=== PATIENT | male | born 1940 | race Caucasian/White ===

== ENCOUNTER → 2018-02-03 13:15 | Outpatient (CLI) | payer MEDICARE, BC, SELFPAY ==
--- NOTE | 2018-02-03 13:23 | CT_ITS ---
STUDY: LOW DOSE CT LUNG CANCER SCREENING REASON FOR EXAM: Male, 77 years old. Tobacco use. Smokes 1 pack per day for 62 years. COPD. Diabetes. RADIATION DOSAGE (If Supplied By Facility): CTDIvol = ( 2.01 ) mGy, DLP = ( 67.71 ) mGycm TECHNIQUE: No contrast was administered. Low dose technique was utilized (average mAS-38 and kVp 120). 1.25 mm axial source images with a slice interval of 1.25-mm were reconstructed in lung windows. Nodule measured using lung windows on PACS and/or independent workstation with automated measurement of minimum and maximum diameter. Nodule measurement reported as average diameter rounded to the nearest whole number. Growth is defined as an increase ins size of greater than 1.5 mm. COMPARISON: None. NODULES: Total lung nodules (excluding granulomas): Left upper lobe series 2 image 55 posterior lateral pleural margin 3 mm solid pulmonary nodule. Nonspecific. Emphysema: Moderate centrilobular emphysema. There are multiple tiny calcified pulmonary nodules consistent with old granulomatous disease. Endobronchial lesion: None. Aorta: Nondilated aorta, mild to moderate atherosclerotic calcification of the wall. Coronary arteries: The right and left coronary arteries each emerge from the appropriate coronary sinus, prominent three-vessel coronary calcifications. Heart: Normal cardiac size, no effusion. Pulmonary artery: Nondilated. Mediastinal nodes: A few small lymph nodes of the mediastinum. The largest is pretracheal with short axis VII.5 mm, not pathologically enlarged. There is no apparent hilar lymphadenopathy. Other chest and abdominal findings: Body wall soft tissues, upper abdomen, and osseous structures exhibit no acute process. Mild scoliosis and mild thoracic spondylosis. CT/Chest without Contrast IMPRESSION: 1. Prominent features of centrilobular emphysema. 2. Three-vessel coronary atherosclerosis. 3. Scattered punctate calcified pulmonary nodules consistent with old granulomatous disease. 4. 3 mm pulmonary nodule left upper lobe, solid, oval, circumscribed margins. ACR lung RADS category 2, benign appearance, less than 1% chance of malignancy. Continued annual screening CT recommended. Fleischner Society Criteria 2017, solitary solid less than 6 mm pulmonary nodule in a high-risk patient, optional CT in 12 months. Therefore, annual screening CT examination is recommended in 12 months. IMPORTANT NOTES FOR USE: ACR Lung-RADS Version 1.0 Assessment Categories Release Date: January 10, 2014 Category: Coded 0-4 bases on nodule(s) with highest degree of suspicion. Negative screen is defined as categories 1 and 2; a positive screen is defined as categories 3 and 4. Category 3 and 4A nodules that are unchanged on interval CT should be coded as category 2, and individuals returned to screening in 12 months. Category 4X: Category 3 or 4 nodules with additional imaging findings that increase the suspicion of lung cancer, such as spiculation, GGN that doubles in size in 1 year, enlarged lymph notes, etc. Category Modifiers: S (significant finding unrelated to lung cancer) and C (prior history of treated lung cancer) may be added to the 0-4 Lung-RADS Electronically Signed: Curry Winkler, at 15:46 EDT Tel , Service support ,
== END ==
PROVIDERS: Family Provider Family Medicine; PCP Family Medicine; Visit Provider Internal Medicine Pulmonary Disease
DX: Z87.891 Personal history of nicotine dependence (principal)
CPT/HCPCS: 71250

== ENCOUNTER → 2018-08-10 13:01 | Outpatient (CLI) | payer MEDICARE, BC, SELFPAY ==
--- NOTE | 2018-08-10 13:04 | CT_ITS ---
STUDY: CT CHEST WITHOUT CONTRAST REASON FOR EXAM: Male, 77 years old. Follow-up of lung nodule RADIATION DOSAGE (If Supplied By Facility): CTDIvol = ( 14.68 ) mGy, DLP = ( 485.47 ) mGycm TECHNIQUE: Transaxial imaging was performed without the administration of intravenous contrast material. Individualized dose optimization techniques were used for this CT. COMPARISON: 02/03/2018 FINDINGS: There is hyperinflation of the lungs consistent with chronic obstructive lung disease (COPD). Mild emphysematous changes noted throughout. No acute airspace disease. No evidence of pulmonary nodule. Normal heart and pericardium. There are calcifications of the coronary arteries. Normal mediastinum. Normal hilar regions. Normal unenhanced pulmonary arteries. There is atherosclerotic calcification of the aortic arch with tortuosity and elongation of the aortic arch and descending thoracic aorta. There are multi-level degenerative changes of the thoracic spine. There is no demonstrated abnormality of the visualized upper abdomen. CT/Chest without Contrast IMPRESSION: COPD and emphysema. No evidence of concerning pulmonary nodule. Recommend annual CT lung cancer screening if patient qualifies. Electronically Signed: Lm Nieto DO at 13:53 EST Tel , Service support ,
== END ==
PROVIDERS: Family Provider Family Medicine; PCP Family Medicine; Referring Provider Internal Medicine Pulmonary Disease; Visit Provider Internal Medicine Pulmonary Disease
DX: R91.1 Solitary pulmonary nodule (principal)
CPT/HCPCS: 71250

== ENCOUNTER → 2019-08-28 10:36 | Outpatient (CLI) | payer MEDICARE, BC, SELFPAY ==
--- NOTE | 2019-08-28 10:30 | CT_ITS ---
STUDY: LOW DOSE CT LUNG CANCER SCREENING REASON FOR EXAM: Male, 78 years old. Lung cancer screening RADIATION DOSAGE (If Supplied By Facility): CTDIvol = ( 2.01 ) mGy, DLP = ( 73.99 ) mGycm TECHNIQUE: No contrast was administered. Low dose technique was utilized (average mAS-38 and kVp 120). 1.25 mm axial source images with a slice interval of 1.25-mm were reconstructed in lung windows. 2.5 mm axial source images with a slice interval of 2.5-mm were reconstructed in lung windows. 5.0 mm axial source images with a slice interval of 5.0-mm were reconstructed in soft tissue windows. Nodule measured using lung windows on PACS and/or independent workstation with automated measurement of minimum and maximum diameter. Nodule measurement reported as average diameter rounded to the nearest whole number. Growth is defined as an increase ins size of greater than 1.5 mm. COMPARISON: 10 August 2018, 03 Feb 2018 Findings: The lungs are moderately to severely emphysematous with scattered scars without focal high-risk findings. Central airways are patent. Pleural surfaces are intact. There is severe coronary artery disease. Cardiac chambers are normal in size and shape. Aorta and pulmonary artery are of normal caliber. Limited upper abdominal images are unremarkable. Osseous structures are intact. Appearance is similar to prior. CT/Low Dose CT Lung Screening IMPRESSION: 1. Lung RADS category 1. 2. Moderate to severe emphysema. 3. Severe coronary artery disease. IMPORTANT NOTES FOR USE: ACR Lung-RADS Version 1.0 Assessment Categories Release Date: January 10, 2014 Category: Coded 0-4 bases on nodule(s) with highest degree of suspicion. Negative screen is defined as categories 1 and 2; a positive screen is defined as categories 3 and 4. Category 3 and 4A nodules that are unchanged on interval CT should be coded as category 2, and individuals returned to screening in 12 months. Category 4X: Category 3 or 4 nodules with additional imaging findings that increase the suspicion of lung cancer, such as spiculation, GGN that doubles in size in 1 year, enlarged lymph notes, etc. Category Modifiers: S (significant finding unrelated to lung cancer) and C (prior history of treated lung cancer) may be added to the 0-4 Lung-RADS Electronically Signed: Deo Bunch, at 17:58 EST Tel , Service support ,
== END ==
PROVIDERS: Family Provider Family Medicine; PCP Family Medicine; Referring Provider Internal Medicine Pulmonary Disease; Visit Provider Internal Medicine Pulmonary Disease
DX: Z87.891 Personal history of nicotine dependence (principal); Z12.2 Encounter for screening for malignant neoplasm of respiratory organs
CPT/HCPCS: G0297

== ENCOUNTER → 2020-03-02 07:46 | Outpatient (CLI) | payer MEDICARE, BC, SELFPAY ==
--- NOTE | 2020-03-02 07:50 | CT_ITS ---
STUDY: CTA OF THE ABDOMINAL AORTA AND BILATERAL LOWER EXTREMITIES REASON FOR EXAM: Male, 79 years old. CLAUDICATION BILAT LEGS, RESTLESS LEG, 64 YR SMOKING HX, 1PPD RADIATION DOSAGE (If Supplied By Facility): CTDIvol = ( 7.97 ) mGy, DLP = ( 939.65 ) mGycm TECHNIQUE: Axial CT angiography multi-detector data acquisition was obtained from the to the following intravenous administration of IV 100mL Isovue-370. Axial images and MIP images were reconstructed from the axial data set. Post-processing of the angiographic images was performed, with multiplanar reformation and 3D reconstruction. Individualized dose optimization techniques were used for this CT. TECHNICAL QUALITY: Good COMPARISON: None. Descriptors of Narrowing: None (0%) Mild (< 50%) Moderate (50-70%) Severe (70-90%) Subtotal/Total Occlusion (90-100%) Non-Evaluable (technically non-diagnostic FINDINGS: Minimal increased markings at the lung bases suggests a mild degree of scarring. Small umbilical hernia containing fat. Abdominal aorta: Atherosclerotic calcification. No aneurysmal dilatation is seen. Celiac and superior mesenteric arteries: Atherosclerotic calcific plaque at the origin of the celiac artery causing mild stenosis. The superior mesenteric artery is unremarkable. Inferior mesenteric artery: Not visualized. Right renal artery(arteries): Nonstenotic plaque at its origin. Left renal artery(arteries): Nonstenotic plaque at its origin. Right common iliac artery: No demonstrated narrowing. Right external iliac artery: No demonstrated narrowing. Right internal iliac artery: No demonstrated narrowing. Left common iliac artery: No demonstrated narrowing. Left external iliac artery: No demonstrated narrowing. Left internal iliac artery: No demonstrated narrowing. RIGHT LOWER EXTREMITY Right common femoral artery: Nonstenotic atherosclerotic plaques. Right profundus femoris: No demonstrated narrowing. Right superficial femoral: Occlusion of the superficial femoral artery in its midportion. There is reconstitution of the popliteal artery in its proximal portion. Right popliteal artery: Focal plaque in the proximal popliteal artery. Right tibioperoneal trunk: No demonstrated narrowing. Right anterior tibial artery: No demonstrated narrowing. Right posterior tibial artery: No demonstrated narrowing. Right peroneal artery: No demonstrated narrowing. LEFT LOWER EXTREMITY Left common femoral artery: No demonstrated narrowing. Left profundus femoris: No demonstrated narrowing. Left superficial femoral: No demonstrated narrowing. Left popliteal artery: No demonstrated narrowing. Left tibioperoneal trunk: No demonstrated narrowing. Left anterior tibial artery: No demonstrated narrowing. Left posterior tibial artery: No demonstrated narrowing. Left peroneal artery: No demonstrated narrowing. 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 Electronically Signed: Guero Gaytan, at 11:01 EDT , Service support ,
--- NOTE | 2020-03-02 07:58 | CT_ITS ---
STUDY: CTA OF THE ABDOMINAL AORTA AND BILATERAL LOWER EXTREMITIES REASON FOR EXAM: Male, 79 years old. CLAUDICATION BILAT LEGS, RESTLESS LEG, 65 YR SMOKING HX, 1PPD RADIATION DOSAGE (If Supplied By Facility): CTDIvol = ( 7.97 ) mGy, DLP = ( 939.65 ) mGycm TECHNIQUE: Axial CT angiography multi-detector data acquisition was obtained from the dome of the liver to the ankles following intravenous administration of IV 100mL Isovue-370. Axial images and MIP images were reconstructed from the axial data set. Post-processing of the angiographic images was performed, with multiplanar reformation and 3D reconstruction. Individualized dose optimization techniques were used for this CT. TECHNICAL QUALITY: Good COMPARISON: None. Descriptors of Narrowing: None (0%) Mild (< 50%) Moderate (50-70%) Severe (70-90%) Subtotal/Total Occlusion (90-100%) Non-Evaluable (technically non-diagnostic FINDINGS: Abdominal aorta: Atherosclerotic plaque formation. Nonstenotic. Celiac and superior mesenteric arteries: Nonstenotic atherosclerotic plaque at the origin of the celiac artery. Inferior mesenteric artery: Not visualized. Right renal artery(arteries): Nonstenotic plaques at the origin of the right renal artery. Left renal artery(arteries): Nonstenotic plaques at the origin of the left renal artery. Right common iliac artery: Nonstenotic atherosclerotic plaques. Right external iliac artery: Nonstenotic atherosclerotic plaques. Right internal iliac artery: No demonstrated narrowing. Left common iliac artery: Nonstenotic atherosclerotic plaques. Left external iliac artery: Nonstenotic atherosclerotic plaques. Left internal iliac artery: No demonstrated narrowing. RIGHT LOWER EXTREMITY Right common femoral artery: No demonstrated narrowing. Right profundus femoris: No demonstrated narrowing. Right superficial femoral: Occlusion of the right superficial femoral artery in its midportion. Right popliteal artery: Reconstitution of the popliteal artery at its origin with a nonstenotic plaques. Right tibioperoneal trunk: No demonstrated narrowing. Right anterior tibial artery: No demonstrated narrowing. Right posterior tibial artery: No demonstrated narrowing. Right peroneal artery: No demonstrated narrowing. LEFT LOWER EXTREMITY Left common femoral artery: No demonstrated narrowing. Left profundus femoris: No demonstrated narrowing. Left superficial femoral: No demonstrated narrowing. Left popliteal artery: No demonstrated narrowing. Left tibioperoneal trunk: No demonstrated narrowing. Left anterior tibial artery: No demonstrated narrowing. Left posterior tibial artery: No demonstrated narrowing. Left peroneal artery: No demonstrated narrowing. CT/Extremity Lower W/WO Contrast IMPRESSION: Occlusion of the right superficial femoral artery with reconstitution of the popliteal artery at its origin. Electronically Signed: Guero Gaytan, at 11:03 EDT , Service support ,
[2020-03-02 08:15] LABS: CREATININE FINGERSTICK 0.7 mg/dL (0.70-1.30); EGFR FINGERSTICK > 60.0000 mL/min (>60)
== END ==
PROVIDERS: PCP Family Medicine; Referring Provider Family Medicine; Visit Provider Family Medicine
DX: I73.9 Peripheral vascular disease, unspecified (principal)
CPT/HCPCS: 73702; Q9967

== ENCOUNTER → 2020-08-31 14:09 | Outpatient (CLI) | payer MEDICARE, BC, SELFPAY ==
--- NOTE | 2020-08-31 14:11 | CT_ITS ---
STUDY: LOW DOSE CT LUNG CANCER SCREENING REASON FOR EXAM: Male, 79 years old. Tobacco use, smokes 1 pack/day x 50 years, COPD. RADIATION DOSAGE (If Supplied By Facility): CTDIvol = ( 2.01 ) mGy, DLP = ( 73.99 ) mGycm TECHNIQUE: No contrast was administered. Low dose technique was utilized (average mAS-38 and kVp 120). 1.25 mm axial source images with a slice interval of 1.25-mm were reconstructed in lung windows. 2.5 mm axial source images with a slice interval of 2.5-mm were reconstructed in lung windows. 5.0 mm axial source images with a slice interval of 5.0-mm were reconstructed in soft tissue windows. Nodule measured using lung windows on PACS and/or independent workstation with automated measurement of minimum and maximum diameter. Nodule measurement reported as average diameter rounded to the nearest whole number. Growth is defined as an increase ins size of greater than 1.5 mm. COMPARISON: Comparison is made with prior examination dated 08/28/2019. NODULES: No suspicious nodules are seen. Emphysema: Emphysematous changes more prominent in the upper lobes. Mild scarring at the lung apices bilateral. Minimal increased linear markings are seen in the right middle lobe and lingular segment of the left upper lobe suggestive of scarring. Endobronchial lesion: None Aorta: Atherosclerotic plaque formation of the aortic arch and descending thoracic aorta. Coronary arteries: Coronary artery calcification. Heart: Unremarkable. Pulmonary artery: Unremarkable Mediastinal nodes: Small mediastinal lymph nodes are seen. Other chest and abdominal findings: CT/Low Dose CT Lung Screening IMPRESSION: Lung-RADS category 2 - Continue annual screening with LDCT in 12 months. IMPORTANT NOTES FOR USE: ACR Lung-RADS Version 1.0 Assessment Categories Release Date: January 10, 2014 Category: Coded 0-4 bases on nodule(s) with highest degree of suspicion. Negative screen is defined as categories 1 and 2; a positive screen is defined as categories 3 and 4. Category 3 and 4A nodules that are unchanged on interval CT should be coded as category 2, and individuals returned to screening in 12 months. Category 4X: Category 3 or 4 nodules with additional imaging findings that increase the suspicion of lung cancer, such as spiculation, GGN that doubles in size in 1 year, enlarged lymph notes, etc. Category Modifiers: S (significant finding unrelated to lung cancer) and C (prior history of treated lung cancer) may be added to the 0-4 Lung-RADS Electronically Signed: Guero Gaytan, at 15:06 EST , Service support ,
== END ==
PROVIDERS: PCP Family Medicine; Referring Provider Internal Medicine Pulmonary Disease; Visit Provider Internal Medicine Pulmonary Disease
DX: Z87.891 Personal history of nicotine dependence (principal); Z12.2 Encounter for screening for malignant neoplasm of respiratory organs
CPT/HCPCS: G0297

== ENCOUNTER 2020-10-27 15:00 | Outpatient (RCR) | payer MEDICARE, BC, SELFPAY ==
--- NOTE | 2020-10-06 13:05 | SOAP_ITS ---
REASON FOR REFERRAL: The patient is a 79 year old male referred for a clinical assessment of the swallow function at [facility] on 10/11/2020 due to concerns for PO intake sufficiency following a recent modified barium swallow study. The patient reports intermittent coughing both on saliva and with intake of both solids and liquids, with a recent MBS completed in [facility] recommending reductions in bolus volume along with further intervention to ?strengthen my throat?. He reports coughing episodes with PO intake occurs at least daily. He reports intermittent diurnal sialorrhea (drooling during the daytime) that tends to reach the chin prior to being noticed, which has gradually worsened over the past few months, again with coughing episodes with saliva noted to correlate with the onset of diurnal sialorrhea. He reports he has a history of gastroesophageal reflux issues, though he feels this has been managed sufficiently with proton pump inhibitors. The patient does report a baseline tendency for tachyphagia (rapid ingestion) which likely complicates intake. The patient is fully ambulatory with no difficulties regarding posture maintenance. He appears cognitively intact, affect appears appropriate. he denies any significant weight loss. he denies any issues with appetite, early satiety (feeling full after few bites), inanition, nausea, or emesis. He denies issues with hypogeusia (reduced taste), dysgeusia (abnormal / unpleasant taste), ageusia (absence of taste), or hyposmia (reduced smell). He denies issues with xerostomia (dry mouth). He denies any symptoms associate with trismus. he denies odynophagia (pain during swallow). He denies any current or previous issues with aspiration related pulmonary complications, to include pneumonia, bronchitis, or unexplained asthma symptoms. 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 ORAL MOTOR / MODIFIED CRANIAL NERVE ASSESSMENT: TRIGEMINAL NERVE (CNV): no clinically significant abnormalities observed FACIAL NERVE (CNVII): no clinically significant abnormalities observed GLOSSOPHARYNGEAL NERVE (CNIX): no clinically significant abnormalities observed VAGUS NERVE (CNX): no clinically significant abnormalities observed HYPOGLOSSAL NERVE (CNXII): no clinically significant abnormalities observed DENTITION: upper / lower dentures in place, easily displaced ORAL MUCOSA / GINGIVA: bilateral whitish coating along the lingual blade suggestive of oral candidiasis; currently treated with Nystatin. SALIVATION: mild xerostomia (dry mouth) in addition to reported intermittent diurnal sialorrhea (drooling during daytime) COUGH SUFFICIENCY: sufficient volitional cough intensity VOCAL QUALITY: mild dysphonia (abnormal vocal quality) with vocal hoarseness SIALORRHEA SCORING SCALE (SSS): SSS SCORE: 4 (of 9) SSS DESCRIPTION: moderate, wet on the lips and chin, occasionally CLINICAL ASSESSMENT OF SWALLOW FUNCTION (QUANTITATIVE): REPETITIVE SALIVA SWALLOWING TEST (RSST): RSST RESULT: pass RSST DESCRIPTION: able to elicit 2 dry swallows within 30 seconds. 1OZ WATER SWALLOWING TEST (1OZ WST): 1OZ WST RESULTS: abnormal ? 5 (of 5) 1OZ WST DESCRIPTION: coughing with ingestion GROVER ASSESSMENT OF SWALLOWING ABILITY (MASA): MASA SEVERITY SCORE: 174 MASA SEVERITY SCORE DESCRIPTION: mild impairment MASA ASPIRATION SEVERITY SCORE: 174 MASA ASPIRATION SEVERITY SCORE DESCRIPTION: unremarkable MASA DYSPHAGIA RISK RATING: definite; strong evidence for disorder CLINICAL ASSESSMENT OF SWALLOW FUNCTION (QUALITATIVE): ORAL PREPARATORY PHASE: sufficient mastication rate and quality; sufficient anterior oral containment during manipulation; preserved management of breathing / bolus formation ORAL TRANSITIONAL PHASE: no signs of lingual discoordination (no tremor / undulations) noted upon digital palpation; overall sufficient oral clearance with mild residual diffusely spread throughout the oral cavity; no signs or symptoms of premature posterior bolus loss; PHARYNGEAL PHASE: mild reduction in hyolaryngeal excursion and duration upon digital palpation possibly suggestive of suboptimal laryngeal vestibule closure / pressure / duration, though in isolation this may lack clinically significance; intermittent / prominent audible swallow possibly suggestive of pharyngeal swallow delay / dyssynchrony; no subjective signs of pharyngeal dysmotility; no subjective signs of velopharyngeal impairments; post prandial coughing during ingestion of thin liquid water (x1) indicative of overt aspiration (ameliorated with bolus reduction with use of a straw, possible benefit from execution of the chin tuck posture) no further signs or symptoms of penetration / aspiration throughout trials. ESOPHAGEAL PHASE: esophageal phase appears unremarkable CLINICAL ASSESSMENT OF SWALLOW FUNCTION (SEVERITY GRADING): SWALLOWING PERFORMANCE SCALE (SPS): SPS SCORE: 5 (of 7) SPS SEVERITY LEVEL: moderate SPS SCORE DESCRIPTION: moderate dysfunction in oral or pharyngeal stage: aspiration noted on examination; requires modified diet and swallowing precautions to minimize risk of aspiration INTERVENTION CONSIDERATIONS AND RECOMMENDATIONS: The patient reports completion of a MBS recently with limited information recalled aside from recommendations for reduced bolus volumes; we will attempt to ascertain the study images and results from the location of the study to further develop our treatment goals. RECOMMENDATIONS FOR INTERVENTION: The patient would benefit from additional skilled speech-language intervention targeting diet texture management and training / implementation of recommended compensatory strategies; training and implementation of recommended oropharyngeal strengthening exercises to facilitate improved oropharyngeal strength and coordination; patient and caregiver training targeting meal preparation / thickened liquid preparation; with goal adjustment as clinically indicated. POST ASSESSMENT EDUCATION: The results and recommendations were discussed with the patient immediately following completion of the assessment, with the patient verbalizing understanding and agreement with all recommendations and education provided. DIET TEXTURE RECOMMENDATIONS: Will recommend a regular ? easy to chew textured (IDDSI: 7), thin liquid diet (IDDSI: 0) RECOMMENDED COMPENSATORY STRATEGIES: Straws with all liquids with reduced bolus volume, consider execution of the chin tuck posture, cut solids into bite sized pieces (4mm x 4mm x15), seated upright at 90 degrees during PO intake, remain upright for 30-60 minutes post meal (GERD precaution) FUNCTIONAL OUTCOMES: OUTCOME 1: the patient will tolerate the least restrictive means of nutrition to facilitate adequate hydration / nutrition with optimum safety and efficiency of swallowing function during P.O. intake without overt signs and symptoms of aspiration. OUTCOME 2: the patient will demonstrate and utilize recommended oropharyngeal strengthening exercises to facilitate improved oropharyngeal strength and coordination with minimal cueing and prompting provide by the clinician, across 2 out of 3 sessions. OUTCOME 3: the patient will participate in continual patient / patient caregiver education regarding meal preparation to promote optimal diet texture / liquid viscosity preparation in line with clinical diet texture recommendations at the independent level across 3 consecutive sessions. OUTCOME 4: goal adjustment as needed Eddy Herron M.A., CCC-REFERRAL SPECIALIST, CBIS MBSImP Certified, LSVT Certified [facility] Speech-Language Pathology Department Email: [email or web address]
--- NOTE | 2020-10-27 16:15 | HP.SP.DC ---
ST Discharge Summary - Discharged: Discharge: The patient is a pleasant 79 year old male who attended 2 skilled speech-language intervention sessions spanning from 10/11/2020 to 10/27/2020 due to concerns for PO intake sufficiency following a recent modified barium swallow study. At this time, all intervention goals have been achieved. We will discharge from the skilled speech-language pathology caseload at this time per patent request, though would gladly re-initiate intervention as needed moving forward.
== END 2020-10-27 19:00 | disposition home or self-care (01) ==
LOC: SP 15:00
PROVIDERS: PCP Family Medicine; Referring Provider Family Medicine; Visit Provider Family Medicine
DX: T17.908D Unspecified foreign body in respiratory tract, part unspecified causing other injury, subsequent encounter (principal)
CPT/HCPCS: 92526; 92610

== ENCOUNTER → 2021-09-03 12:52 | Outpatient (CLI) | payer MEDICARE, BC, SELFPAY ==
--- NOTE | 2021-09-03 12:56 | CT_ITS ---
STUDY: LOW DOSE CT LUNG CANCER SCREENING REASON FOR EXAM: Male, 80 years old. TOBACCO USE. Patient smoked 1 pack per day for 65 years. COPD. RADIATION DOSAGE (If Supplied By Facility): CTDIvol = ( 2.01 ) mGy, DLP = ( 64.44 ) mGycm TECHNIQUE: No contrast was administered. Low dose technique was utilized (average mAS-38 and kVp 120). 1.25 mm axial source images with a slice interval of 1.25-mm were reconstructed in lung windows. 2.5 mm axial source images with a slice interval of 2.5-mm were reconstructed in lung windows. 5.0 mm axial source images with a slice interval of 5.0-mm were reconstructed in soft tissue windows. Nodule measured using lung windows on PACS and/or independent workstation with automated measurement of minimum and maximum diameter. Nodule measurement reported as average diameter rounded to the nearest whole number. Growth is defined as an increase ins size of greater than 1.5 mm. COMPARISON: Comparison is made with prior study dated 08/31/2020. NODULES: There is a new 8.7 mm x 7.2 mm noncalcified nodule in the posterior aspect of the superior segment of the right lower lobe as seen on axial image #145 and coronal image #199. Correlation with a PET scan is recommended. Emphysema: Hyperinflation. Emphysematous changes. Stable mild scarring along the posterior aspect of the left upper lobe with bullous formation. Endobronchial lesion: None Aorta: Atherosclerotic plaque formation. Coronary arteries: Coronary artery calcification. Heart: Unremarkable Pulmonary artery: Unremarkable. Mediastinal nodes: Small benign appearing mediastinal lymph nodes. Other chest and abdominal findings: CT/Low Dose CT Lung Screening IMPRESSION: Lung-RADS category 4B - Chest CT with or without contrast, PET/CT and/or tissue sampling can be obtained depending on the probability of malignancy and comorbidities. IMPORTANT NOTES FOR USE: ACR Lung-RADS Version 1.1 Assessment Categories Release Date: 2018 Category: Coded 0-4 bases on nodule(s) with highest degree of suspicion. Negative screen is defined as categories 1 and 2; a positive screen is defined as categories 3 and 4. Category 3 and 4A nodules that are unchanged on interval CT should be coded as category 2, and individuals returned to screening in 12 months. Category 4X: Category 3 or 4 nodules with additional imaging findings that increase the suspicion of lung cancer, such as spiculation, GGN that doubles in size in 1 year, enlarged lymph notes, etc. Category Modifiers: S (significant finding unrelated to lung cancer) Electronically Signed: Guero Gaytan MD at 13:51 EST , Service support ,
== END ==
PROVIDERS: PCP Family Medicine; Referring Provider Internal Medicine Pulmonary Disease; Visit Provider Internal Medicine Pulmonary Disease
DX: Z87.891 Personal history of nicotine dependence (principal)
CPT/HCPCS: 71271

== ENCOUNTER 2021-09-26 08:37 | Outpatient (CLI) | payer MEDICARE, BC, SELFPAY ==
--- NOTE | 2021-09-26 09:00 | PET_ITS ---
EXAMINATION: FDG PET-CT INDICATIONS: A 80-year-old male with history of pulmonary nodularity. COMPARISON EXAMINATION: CT of the chest report dated 09/03/21 INDEX LESION SIZE SUV INTERPRETATION Right lower posterior lung-right lower lobe 9.1-mm (frame 177) 2.9 Fulfills quantitative criteria for viable neoplasm, histopathologic analysis recommended Right mid medial lung-right upper lobe 0.9 Quantitative criteria for viable neoplasm are not fulfilled TECHNIQUE: Following the intravenous administration of 14.5 mCi of F-18 deoxyglucose via the right antecubital fossa, multiplanar image acquisitions of the neck, chest, abdomen and pelvis to level of mid thigh, obtained at one hour post radiopharmaceutical administration contemporaneously interpreted with the current CT of the neck, chest, abdomen and pelvis, to level of mid thigh, dated 09/26/[address] of the chest report dated 09/03/21 reveals: BLOOD GLUCOSE LEVEL:?? 167 mg/dl?HEIGHT:?63 inches?WEIGHT: 136 lbs. FINDINGS: 1. Focal increased radiopharmaceutical concentration is observed in the right lower posterior lung-right lower lobe demonstrating a calculated maximal standard uptake value of 2.8 (standardized-corrected). The maximal axial diameter of the corresponding soft tissue density is 9.1-mm. 2. Subtle increased tracer uptake is observed in the right mid medial lung-right upper lobe generating a calculated maximal standard uptake value of 0.9. Quantitative criteria for viable neoplasm are not fulfilled. 3. Normal physiologic distribution of the radiopharmaceutical is apparent in the hepatic (2.7) and splenic parenchyma, both renal units, bladder and visualized intestinal tract. The visualized portion of the cerebral cortical-subcortical structures demonstrate symmetric and preserved glucose metabolism. Diffuse radiopharmaceutical concentration is noted in all four quadrants of the abdomen and pelvis. Prominent uptake is observed in the ascending and descending thoracic aorta commensurate with activated leukocytes associated with atherosclerotic plaque formation. Prominent radiopharmaceutical concentration is identified in the left ventricular myocardium commensurate with the fed state. Enhanced tracer distribution is manifest in the anterior aspect of the nares without evidence of soft tissue mass most consistent with activated leukocytes associated with an inflammatory process-rhinitis. Pertinent CT findings are as follows: CHEST: Coronary arterial calcification is observed. Atherosclerotic calcification is defined in the thoracic aorta. The maximal axial diameter of the descending thoracic aorta is 31.8-mm. Bilateral axillary and scattered mediastinal soft tissue densities reveal no evidence of increased tracer uptake. Emphysematous changes are noted in the bilateral upper-mid lung zones. There are no additional parenchymal densities-nodules defined in the right and left hemithorax with quantitatively significant increased FDG uptake. ABDOMEN AND PELVIS: There is atherosclerotic calcification defined in the abdominal aorta without evidence of dilatation-aneurysm formation. Abdominal-pelvic arterial calcification is demonstrated. Bilateral inguinal soft tissue with fatty hilus is ametabolic. Calcified phlebolith formation is encountered in the left lower hemipelvis. Colonic diverticulosis is noted without evidence of diverticulitis. SKELETAL: Degenerative changes are noted in the cervical, thoracic and lumbar spine without evidence of increased radiopharmaceutical concentration. PET/PET/CT Tumor Base -Thigh Init IMPRESSION: 1. Increased 18-F labeled glucose metabolism defined in the right lower posterior lung-right lower lobe fulfills quantitative criteria for viable neoplasm. Histopathologic analysis is recommended. (Francis et al, Annals of Internal Medicine, 138:724, 2003). 2. Enhanced tracer uptake noted in the right mid medial lung-right upper lobe does not fulfill quantitative criteria for malignant transformation. Electronic Signature Curry Heart D.O. Accurate Quantification of SUVs for this report are calculated using the exclusive [employer]. (U.S. Patent No. [phone]). Standardization and correction of the FDG SUV metric via ACCUQUAN technology allow for vendor non-specific objective quantitative examination comparison and optimization of the sensitivity and specificity of the FDG PET-CT examination. Electronically Signed: Curry Heart DO at 7:38 EST Tel , Service support ,
== END 2021-09-26 23:59 | disposition home or self-care (01) ==
PROVIDERS: PCP Family Medicine; Referring Provider Internal Medicine Pulmonary Disease; Visit Provider Internal Medicine Pulmonary Disease
DX: R91.1 Solitary pulmonary nodule (principal)
CPT/HCPCS: 78815; A9552

== ENCOUNTER → 2022-05-01 | Outpatient (CLI) | payer MEDICARE, BC, SELFPAY ==
[2022-05-01 18:23] LABS: CRP 4.19 mg/L (0.0-3.0)
== END | disposition home or self-care (01) ==
PROVIDERS: PCP Family Medicine; Referring Provider Internal Medicine Gastroenterology; Visit Provider Internal Medicine Gastroenterology
DX: R19.7 Diarrhea, unspecified (principal)
CPT/HCPCS: 36415; 86140

== ENCOUNTER → 2022-05-03 | Outpatient (CLI) | payer MEDICARE, BC, SELFPAY ==
[2022-05-10 18:15] LABS: Fats, Neutral Normal (.); Fats, Total Normal (.)
== END | disposition home or self-care (01) ==
LOC: MTLAB 09:16
PROVIDERS: PCP Family Medicine; Referring Provider Internal Medicine Gastroenterology; Visit Provider Internal Medicine Gastroenterology
DX: R19.7 Diarrhea, unspecified (principal)
CPT/HCPCS: 82705

== ENCOUNTER 2023-05-27 10:06 | Outpatient (CLI) | payer MEDICARE, BC, SELFPAY ==
--- NOTE | 2023-05-27 10:30 | PET_ITS ---
EXAMINATION: FDG PET/CT ? INDICATIONS: 82-year-old male with a history of primary lung carcinoma, presenting for restaging examination. ? COMPARISON EXAMINATION: FDG-PET CT study dated 09/26/2021. ? INDEX LESION SIZE SUV INTERPRETATION NEW Right mid medial lung field, right upper lobe 20.3 mm 2.6 Fulfills quantitative criteria for viable neoplasm ? NEW Right thoracic perihilum 8.1 mm 4.6 Fulfills quantitative criteria for viable neoplasm ? NEW Right axilla 17.4 mm 17.3 (n=2) Fulfills quantitative criteria for viable neoplasm ? NEW Third-fifth lumbar vertebrae ? 12.1 max Quantitative criteria for viable neoplasm are fulfilled ? PREVIOUS Right lower lung field, right lower lobe ? ? Demonstrates metabolic resolution on the current examination ? TECHNIQUE: Following the intravenous administration of 13.5 mCi of F-18 deoxyglucose via the left wrist, multiplanar image acquisitions of the head, neck, chest, abdomen and pelvis to the level of the midthigh, obtained at one-hour post radiopharmaceutical administration contemporaneously interpreted with the current CT of the chest, abdomen and pelvis dated 05/27/2023 and prior FDG-PET CT study dated 09/26/2021 via coregistration reveal: SERUM GLUCOSE LEVEL:? 88 mg/dL? HEIGHT:?? 63 inches WEIGHT:?? 124 pounds ? FINDINGS: ? HEAD/NECK:? There is no evidence of abnormal increased glucose metabolism in the pharyngeal mucosal space, parapharyngeal space, oropharynx, bilateral-lateral and anterior neck, hypopharynx and distribution of the larynx. ? The visualized portion of the cerebral cortical-subcortical structures demonstrate symmetric and preserved glucose metabolism. ? CHEST:? Newly identified increased radiopharmaceutical concentration is manifest in the right mid hemithorax pulmonary parenchyma, apparent right upper lobe. The calculated standard uptake value is 2.6. The maximum axial diameter of the metabolic, morphologic abnormality is 20.3 mm. Currently visualized right thoracic perihilar increased radiopharmaceutical concentration is noted with a calculated standard uptake value of 4.6. The maximum axial diameter of the metabolic, morphologic abnormality is 8.1 mm. Newly identified increased radiopharmaceutical concentration is manifest in two separate locations within the right axilla generating a calculated maximum standard uptake value of 17.3. The maximum axial diameter of the largest corresponding soft tissue density is 17.4 mm. The previously defined right lower lobe hypermetabolic focus noted on the examination dated 09/26/2021, prior to the stroke, is not apparent on the current examination. There is visualized radiopharmaceutical concentration noted in the left ventricular myocardium, consistent with the fed state. CT of the chest demonstrates the following anatomic characteristics: Intralobular and paraseptal emphysematous changes are noted in the bilateral upper-mid lung zones. Right and left axillary soft tissue densities reveal no evidence of increased tracer uptake. Coronary arterial calcification is observed. Atherosclerotic calcification is defined in the thoracic aorta without evidence of dilatation, aneurysm formation. ? ABDOMEN/PELVIS:? Normal physiologic distribution of the radiopharmaceutical is identified in the hepatic (1.8/2.7) and splenic parenchyma, both renal units, urinary bladder, and visualized intestinal tract. ? CT of the abdomen and pelvis is remarkable for the following: Atherosclerotic calcification is defined in the abdominal aorta without evidence of dilatation, aneurysm formation. Abdominal-pelvic arterial calcification is observed. Calcification is defined in the bilateral renal units. Right and left inguinal soft tissue densities are ametabolic. Calcification is defined within a prominent-sized prostate gland. Increased radiopharmaceutical concentration defined in the third-fifth lumbar vertebrae involving the posterior element in the midline. The calculated maximum standard uptake value is 12.1. ? SKELETAL:? There is no evidence of quantitatively significant enhanced glucose metabolism on meticulous inspection of the appendicular and axial skeletal structures. ? Degenerative changes defined in the thoracic and lumbar spine demonstrate no evidence of increased glucose metabolism. There are no sclerotic, mixed sclerotic-lytic, or primarily lytic changes defined in the axial skeletal structures with evidence of increased FDG uptake. ? PET/PET/CT Tumor Base -Thigh Init IMPRESSION: 1. ABNORMAL EXAMINATION INDICATIVE OF MALIGNANT VIABLE NEOPLASM. 2. Increased radiopharmaceutical concentration newly defined in the right mid lung field, presumably right upper lobe, fulfills quantitative criteria for viable neoplasm with single-point technique. Histopathologic analysis should be considered. 3. Facilitated uptake noted in the right thoracic perihilum fulfills quantitative criteria for viable neoplasm with single-point technique. (Eliane et al, Journal of Clinical Oncology, 16:2142, 1998). 4. Newly identified increased radiopharmaceutical concentration in two separate locations within the right axilla fulfill quantitative criteria for malignant transformation. 5. The increase in glucose metabolism demonstrated in the third-fifth lumbar vertebrae involving the posterior elements may be further investigated with magnetic resonance imaging secondary to the quantitative degree of uptake. 6. There is interim resolution of the prior defined right lower lung field hypermetabolic focus. 7. Overall, compared to the prior FDG-PET CT study dated 09/26/2021, there is apparent interim development of defined viable neoplastic disease. Electronic Signature Curry Heart D.O. Accurate Quantification of SUVs for this report are calculated using the exclusive [employer]. (U.S. Patent No. [phone] [phone] [place] patent [phone]). Standardization and correction of the FDG SUV metric via ACCUQUAN technology allow for vendor non-specific objective quantitative examination comparison and optimization of the sensitivity and specificity of the FDG PET-CT examination. . [email or web address] Electronically Signed: Curry Heart DO at 23:47 EDT ,
== END 2023-05-27 23:59 | disposition home or self-care (01) ==
PROVIDERS: PCP Family Medicine; Referring Provider Internal Medicine Pulmonary Disease; Visit Provider Internal Medicine Pulmonary Disease
DX: D38.1 Neoplasm of uncertain behavior of trachea, bronchus and lung (principal); R91.8 Other nonspecific abnormal finding of lung field; Z85.118 Personal history of other malignant neoplasm of bronchus and lung
CPT/HCPCS: 78815; A9552

== ENCOUNTER → 2023-07-02 | Outpatient (CLI) | payer MEDICARE, BC, SELFPAY ==
--- NOTE | 2023-07-02 08:26 | MRI_ITS ---
EXAM: MR LUMBAR SPINE WITHOUT AND WITH INTRAVENOUS CONTRAST CLINICAL INDICATION: eval spine for metastasis -- abnormal PET in L3-L5 post elements TECHNIQUE: Multiplanar and multisequence MR images of the lumbar spine without and with intravenous contrast. CONTRAST: IV 11ml Clariscan COMPARISON: No relevant prior studies available. FINDINGS: VERTEBRAE: Normal bone marrow signal intensity. Vertebral body heights are preserved. Normal vertebral bodies and posterior elements. Normal alignment. No spondylolisthesis. There is preservation of the normal lumbar lordosis. SPINAL CORD: Normal. Normal position and signal intensity of the conus medullaris. No abnormal contrast enhancement. SOFT TISSUES: Normal. DISCS/SPINAL CANAL/NEURAL FORAMINA: L1-L2: Normal. Normal disc height and morphology. Normal spinal canal and lateral recesses. Normal neuroforamina. L2-L3: Normal. Normal disc height and morphology. Normal spinal canal and lateral recesses. Normal neuroforamina. L3-L4: Normal. Normal disc height and morphology. Normal spinal canal and lateral recesses. Normal neuroforamina. L4-L5: Normal. Normal disc height and morphology. Normal spinal canal and lateral recesses. Mild narrowing of the right neural foramen related to facet arthropathy and mild disc bulging. L5-S1: Mild narrowing of the posterior portion of the disc space. Mild broad-based disc protrusion without impingement on the thecal sac. Mild narrowing of the neural foramina related to disc bulging and facet arthropathy. MRI/Spine Lumbar W/WO Contrast IMPRESSION: Moderate disc degeneration at L5-S1. No discrete evidence of metastatic disease. Electronically Signed: Sherman Lazo MD at 14:46 EDT ,
[2023-07-02 09:05] LABS: CREATININE FINGERSTICK < 0.9 mg/dL (0.70-1.30); EGFR FINGERSTICK > 60.0000 mL/min (>60)
== END | disposition home or self-care (01) ==
LOC: MRI 07:58
PROVIDERS: PCP Family Medicine; Referring Provider Student in an Organized Health Care Education/Training Program; Visit Provider Student in an Organized Health Care Education/Training Program
DX: R94.8 Abnormal results of function studies of other organs and systems (principal)
CPT/HCPCS: 72158; A9575

== ENCOUNTER → 2023-07-09 | Outpatient (CLI) | payer MEDICARE, BC, SELFPAY ==
--- NOTE | 2023-07-09 | IMM_PTH ---
PATIENT: ZENON JOE LOC: U#:[id number] AGE/SX: 82/M ROOM: RE07/09/[address]: Dr. Kar Rudd DO : 1940 BED: DIS: 07/09/2023 SPEC #: [id number] RECD: 07/11/23 12:53 STATUS: DANO REQ #: [id number] CARLTON: 07/09/23 00:[address]: Kar Rudd DEPT: IMMUNOHISTOCHEMISTRY RECD BY: Twyla Kitchen ENTERED: 07/11/23 12:55 SP TYPE: IMMUNO OTHR DR: Dr. Matt Warner MD Tissues: Axillary lymph node, NOS Procedures: CD20 (add) CD3 (add) CD45 (add) CD5 (add) CD79A (add) CK8 (add) KI-67 (add) Pankeratin (initial) PHYSICIAN & INSTITUTION [place] [id number] SPECIMEN INFORMATION: Tissue Source: Right axilla lymph node Clinical Info: Enlarged lymph nodes, abnormal PET scan Specimen Number: [id number] CPT code: 22951, 96609 x7 METHODOLOGY: Deparaffinized sections of prefer/formalin-fixed tissue or PAP/DQ stained slides are incubated with monoclonal/polyclonal antibodies/oligonucleotide probes. Localization is made via biotin free immunoperoxidase method. Appropriate controls are performed and reacted as expected. Results on target cell population are indicated in the following table: RESULTS: ANTIBODY / CLONE RESULT AE1-3 (AE1/AE3/PCK26) negative CK8 ([id number]) negative CD3 (PS1) positive CD5 (SP10) positive CD20 (L26) positive CD45 (RP2/18) positive CD79a (11E3) positive Ki-67 (30-9) positive, low These tests were developed and their performance characteristics determined by [facility]. They may not have been cleared or approved by the U.S. Food and Drug Administration. The FDA has determined that such clearance or approval is not necessary. The above immunohistochemical/dualISH markers are ordered and reviewed by the Pathologist. INTERPRETATION: Right axilla lymph node, ultrasound-guided core biopsy: Fragments of benign lymph node tissue, negative for metastatic carcinoma or lymphoma. ELI:khoa 07/14/2023
--- NOTE | 2023-07-09 14:17 | US_ITS ---
PROCEDURE: Ultrasound Guided biopsy of right axillary lymph nodes. CLINICAL HISTORY: Male, 82 years old. ENLARGED LYMPH NODES CONSENT: Time-Out Called: Yes Consent form signed: YES PT-PTT Levels Checked: Yes TECHNIQUE: Under direct sonographic guidance, the surgeon performed core biopsies of the enlarged right axillary lymph nodes. US/US Needle Biopsy/Soft Tissue IMPRESSION: Ultrasound guidance for biopsy of the right axillary lymph nodes. Electronically Signed: Guero Gaytan MD at 8:33 EDT ,
--- NOTE | 2023-07-09 15:17 | LYMN_PTH ---
PATIENT: ZENON JOE LOC: [facility]#:[id number] AGE/SX: 82/M ROOM: RE07/09/[address]: Dr. Kar Rudd DO : 1940 BED: DIS: 07/09/2023 SPEC #: [id number] RECD: 07/09/23 16:01 STATUS: DANO WENDI #: [id number] CARLTON: 07/09/23 15:[address]: Kar Rudd DEPT: SURGICAL PATHOLOGY RECD BY: Harini Weir ENTERED: 07/10/23 08:22 SP TYPE: LYMPH NODE OTHR DR: Dr. Matt Warner MD Tissues: LYMPH NODE BIOPSY Procedures: Surgery Specimen Level IV HEADER OPERATION: Ultrasound-guided right axilla lymph node biopsy PRE-OP DIAGNOSIS: Enlarged lymph nodes, abnormal PET scan TISSUE SUBMITTED: Right axilla lymph node core biopsy MICROSCOPIC DIAGNOSIS Right axilla lymph node, ultrasound-guided core biopsy: Fragments of benign lymph node tissue, negative for metastatic carcinoma or lymphoma. See comment. ELI:khoa 07/11/2023 COMMENT Immunohistochemistry ([id number]) supports the above diagnosis. Correlation with clinical, radiologic findings and appropriate follow up are necessary. MICROSCOPIC DESCRIPTION Slides are reviewed. GROSS DESCRIPTION Received in fixative is one container labeled with the patient's name and designated right axilla lymph node. The specimen consists of multiple irregular fragments of lee-yellow adipose tissue that in aggregate measure 1.5 x 0.5 x 0.1 cm. The specimen is totally submitted in one cassette. / SJ:khoa 07/10/2023 TC:3 Ischemic Time: <1 minute Fixation Time: 28 hours CPT: 86926
[2023-07-09] MEDS: Lidocaine 2% (20 ml mdv) 20 ML Vial INFILT (15:29)
--- NOTE | 2023-07-09 16:29 | PCM.OPRPT ---
Report of Operation Date of Procedure: 07/09/23 Pre-Operative Diagnosis: abnormal PET scan right axillary lymph nodes Post-Operative Diagnosis: Same Surgery/Procedure Performed:: Ultrasound-guided right axillary lymph node biopsy Surgeon: Julia Buck Type of Anesthesia: Local Specimen's removed: Right axillary lymph node Estimated Blood Loss (mL): < 5 cc Description of Procedure: Procedure: Right axillary lymph node ultrasound-guided core biopsy Description of procedure: Patient was brought into the ultrasound room in the right axilla was marked. A timeout was completed verifying correct patient, procedure, site, specially, prior to beginning procedure. The right axilla was prepped and draped in usual sterile fashion and using local anesthesia was obtained with 2% lidocaine. The lesion was located with the ultrasound. Small incision was made with 11 blade to introduced the achieve biopsy system through the skin. Under ultrasound guidance multiple core samples were obtained using then achieved biopsy system and sent in formalin for pathology. Upon completion procedure hemostasis was obtained and a Steri-Strip and OpSite were placed. The patient tolerated the procedure well and left the office in good condition. Complications none
== END | disposition home or self-care (01) ==
LOC: US 14:14
PROVIDERS: PCP Family Medicine; Referring Provider Student in an Organized Health Care Education/Training Program; Visit Provider Student in an Organized Health Care Education/Training Program
DX: R59.9 Enlarged lymph nodes, unspecified (principal); R93.89 Abnormal findings on diagnostic imaging of other specified body structures
CPT/HCPCS: 38505; 76942; 88305; 88341; 88342

== ENCOUNTER → 2023-10-06 | Outpatient (CLI) | payer MEDICARE, BC, SELFPAY ==
--- NOTE | 2023-10-06 13:15 | CT_ITS ---
EXAM: CT CHEST WITH INTRAVENOUS CONTRAST CLINICAL INDICATION: lung nodule, h/o lung cancer, observation -- compare to prior TECHNIQUE: Helically acquired images were obtained of the chest with intravenous contrast. CTDIvol = ( 9.91 ) mGy, DLP = ( 257.72 ) mGycm This CT exam was performed using one or more of the following dose reduction techniques: automated exposure control, adjustment of the mA and/or kV according to patient size, and/or use of iterative reconstruction technique. CONTRAST: 100ML OF ISOVUE 370 COMPARISON: No relevant prior studies available. FINDINGS: LUNGS AND PLEURAL SPACES: Right upper lobe spiculated mass measuring 1.3 cm in maximum dimension. This may represent tumor versus a focus of infection. Moderate centrilobular emphysema which is worse at the upper lungs. Pleural parenchymal scarring at the right middle lobe and inferior lingula and right lower lobe posteriorly. No pneumothorax. No consolidation. HEART: See below. MEDIASTINUM: The esophagus and trachea are unremarkable. No mediastinal or hilar adenopathy. No hiatal hernia. THYROID: Thyroid is without discrete mass. BONES/JOINTS: Unremarkable. No suspicious lytic or sclerotic lesions of bone. VASCULATURE: Calcific coronary arteriosclerosis. No obvious central pulmonary embolism although this study was not performed with the pulmonary embolism protocol. No PE. No aortic aneurysm or dissection. No cardiomegaly or pericardial effusion. CT/Chest WITH Contrast IMPRESSION: Right upper lobe spiculated mass measuring 1.3 cm in maximum dimension. This may represent tumor versus a focus of infection. Recommend PET/CT for further investigation. [facility] was utilized to assist in identifying pertinent positive findings. Electronically Signed: Edu Lima MD at 4:54 EST ,
--- OUTSIDE RECORDS SUMMARY | 2023-10-06 13:15 | XMS RPT_ITS | CCD ---
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 Name Role Phone Rosa Robert Primary Care Provider Jose Barfield Unavailable Rosa Robert Primary Care Provider Rosa Robert Primary Care Provider DR ROSA ROBERT MD Primary Care Physician Jose Barfield Unavailable Rosa Robert Primary Care Provider Rosa Robert Primary Care Provider Jose Barfield Unavailable Rosa Robert Primary Care Provider [phone] Rosa Robert MD Primary Care Provider Lawanda Lloyd Referring Unavailable ROSA ROBERT Primary Care Unavailabl lonnie WegasLawanda Referring Unavailable Wegas, Lawanda Attending Unavailable ROSA ROBERT Primary Care Unavailabl e ROSA ROBERT Primary Care Unavailabl e WegasLawanda Referring Unavailable Wegas, Lawanda Attending Unavailable ROSA ROBERT JEFF Primary Care Unavailabl e Lawanda Lloyd Referring Unavailable Codis, Lawanda Attending Unavailable ROSA ROBERT JEFF Primary Care UnavailGRETCHEN Polanco Attending Unavailable ROSA ROBERT JEFF Primary Care Unavailabl e WeLawanda patel Referring Unavailable Wegas, Lawanda Referring Unavailable Weamanda, Lawanda Attending Unavailable ROSA ROBERT JEFF Primary Care Unavailabl e WegasLawanda Referring Unavailable YESICAROSA CHOU Primary Care Unavailabl e Wegas, Lawanda Attending Unavailable ROSA ROBERT [facility] UnavailROSA Stewart Primary Care Unavailable ROSA ROBERT Attending Unavailable ROSA ROBERT Attending Unavailable ROSA ROBERT Primary Care Unavailable ROSA ROBERT Attending Unavailable ROSA ROBERT Primary Care Unavailable Allergies Allergy Classification Reported Allergen(s) Allergy Type Date of Onset Reaction(s) Facility (2 sources) miSOPROStol; Translations: [misoprostol] Drug Allergy 06-29-2015 [place], [place] (11 sources) Acyclovir; Translations: [acyclovir] Drug Allergy 07-24-2022 Other/See Comments [facility] Medications Current Medications Medication Drug Class(es) Dates Sig (Normalized) Sig (Original) aspirin 81 mg delayed release oral tablet (20 sources) Platelet Aggregation Inhibitor, Nonsteroidal Anti-inflammatory Drug aspirin 81 MG EC tablet Take 81 mg by mouth. 0 Active Completed/Discontinued Medications Medication Drug Class(es) Dates Sig (Normalized) Sig (Original) acetaminophen 500 mg oral tablet (8 sources) Start: 11-29-2021 End: 06-25-2022 take 2 tablets by mouth every six hours acetaminophen (TYLENOL) 500 mg tablet Take 2 tablets by mouth every 6 hours. 0 11/29/2021 06/25/2022 Discontinued Problems Active Problems Problem Classification Problem Date Documented Da te Episodic/Chronic Administrative/social admission (12 sources) Discharge status; Translations: [Encounter for administrative examinations, unspecified] 11-29-2021 Episodic Anxiety disorders (16 sources) Anxiety; Translations: [Anxiety disorder, unspecified] Onset: 0 02-17-2020 Chronic Cancer of bronchus; lung (9 sources) Malignant neoplasm of lower lobe of right lung; Translations: [Malignant neoplasm of lower lobe, right bronchus or lung] Onset: 2 Chronic Cancer; other respiratory and intrathoracic (14 sources) Malignant neoplasm of lower respiratory tract; Translations: [Malignant neoplasm of lower respiratory tract, part unspecified] Onset: 2 06-28-2022 Chronic Chronic obstructive pulmonary disease and bronchiectasis (20 sources) Pulmonary emphysema; Translations: [Chronic obstructive lung disease] Onset: 5 06-30-2015 Chronic Diabetes mellitus with complications (20 sources) Type II diabetes mellitus uncontrolled; Translations: [Peripheral vascular disease due to secondary diabetes mellitus] Onset: 9 06-07-2020 Chronic Diabetes mellitus with complications (1 source) Peripheral vascular disease due to secondary diabetes mellitus; Translations: [Peripheral vascular disease due to secondary diabetes] Onset: 9 06-23-2019 Disorders of lipid metabolism (20 sources) Hyperlipidemia; Translations: [Hyperlipidemia, unspecified] Onset: 6 12-11-2015 Chronic Esophageal disorders (16 sources) Gastroesophageal reflux disease; Translations: [Gastroesophageal reflux disease without esophagitis] Onset: 6 12-11-2015 Chronic Hemorrhoids (1 source) Internal hemorrhoids grade II; Translations: [Second degree hemorrhoids] Onset: 5 07-31-2015 Lung disease due to external agents (1 source) Aspiration into respiratory tract; Translations: [Aspiration into airway, initial encounter] Episodic Mood disorders (20 sources) Depressive disorder; Translations: [Depression] Onset: 0 Resolved: 4 02-17-2020 Chronic Neoplasms of unspecified nature or uncertain behavior (3 sources) Neoplasm of lung ; Translations: [Neoplasm of unspecified behavior of respiratory system] Onset: 3 Episodic Other aftercare (1 source) Surgical follow-up; Translations: [Encounter for follow-up examination after completed treatment for conditions other than malignant neoplasm] Episodic Other gastrointestinal disorders (2 sources) Smearing feces; Translations: [Fecal smearing] Onset: 4 10-01-2023 Episodic Other gastrointestinal disorders (2 sources) Fecal smearing; Translations: [Fecal smearing] Onset: 4 Episodic Other hereditary and degenerative nervous system conditions (12 sources) Restless legs; Translations: [Restless legs syndrome] Onset: 0 08-21-2020 Chronic Other hereditary and degenerative nervous system conditions (2 sources) Restless legs syndrome; Translations: [Restless legs syndrome] Onset: 2 Chronic Other lower respiratory disease (1 source) Hypoxemia; Translations: [Hypoxemia] Episodic Other nervous system disorders (12 sources) Acute postoperative pain; Translations: [Other acute postprocedural pain] 11-29-2021 Episodic Other nutritional; endocrine; and metabolic disorders (1 source) Abnormal weight loss; Translations: [Abnormal weight loss] Onset: 2 Episodic Peripheral and visceral atherosclerosis (20 sources) Intermittent claudication; Translations: [Peripheral vascular disease, unspecified] Onset: 0 02-17-2020 Chronic Substance-related disorders (20 sources) Nicotine dependence; Translations: [Nicotine dependence, unspecified, uncomplicated] Onset: 2 11-29-2021 Chronic Past or Other Problems Problem Classification Problem Date Documented Da te Episodic/Chronic Diabetes mellitus without complication (20 sources) Type 2 diabetes mellitus without complication; Translations: [Diabetes mellitus] Onset: 06-23-2019 Resolved: 10-10-2022 06-07-2020 Chronic Hemorrhoids (10 sources) Internal hemorrhoids grade II; Translations: [Second degree hemorrhoids] Onset: 07-31-2015 06-28-2022 Episodic Mood disorders (10 sources) Mood disorders Onset: 09-25-2022 Resolved: 09-30-2023 09-25-2022 Mycoses (10 sources) Candidiasis of mouth; Translations: [Candidal stomatitis] Onset: 08-15-2022 08-15-2022 Episodic Noninfectious gastroenteritis (10 sources) Chronic diarrhea of unknown origin ; Translations: [Noninfective gastroenteritis and colitis, unspecified] Onset: 03-05-2022 06-28-2022 Episodic Other gastrointestinal disorders (11 sources) Diarrhea; Translations: [Diarrhea, unspecified] Onset: 03-22-2022 Episodic Other inflammatory condition of skin (10 sources) Seborrheic dermatitis of scalp; Translations: [Seborrheic dermatitis, unspecified] Onset: 07-24-2022 07-24-2022 Episodic Other lower respiratory disease (20 sources) Nodule of lung; Translations: [Solitary pulmonary nodule] Onset: 11-27-2021 11-29-2021 Episodic Other nutritional; endocrine; and metabolic disorders (10 sources) Unintentional weight loss; Translations: [Abnormal weight loss] Onset: 03-05-2022 06-28-2022 Episodic Residual codes; unclassified (12 sources) Tobacco user; Translations: [Tobacco use] Onset: 11-28-2021 11-29-2021 Episodic Results Test Name Value Interpretation Reference Range Facil ity Vital Signs Date Time Vital Sign Value Performing Clinician Facility 10-01-2023 10:27-0500 Body height 160 cm Rosa Robert MD Work Phone: [facility] 10-01-2023 10:27-0500 Body mass index (BMI) [Ratio] 21.4 kg/m2 Rosa Robert MD Work Phone: [facility] 10-01-2023 10:27-0500 Body weight 54.8 kg Rosa Robert MD Work Phone: [facility] 10-01-2023 10:27-0500 Diastolic blood pressure 62 mm[Hg] Rosa Robert MD Work Phone: [facility] 10-01-2023 10:27-0500 Heart rate 89 /min Rosa Robert MD Work Phone: [facility] 10-01-2023 10:27-0500 SaO2% (BldA) [Mass fraction] 92 % Rosa Robert MD Work Phone: [facility] 10-01-2023 10:27-0500 Systolic blood pressure 133 mm[Hg] Rosa Robert MD Work Phone: [facility] 03-28-2023 10:59-0400 Body height 160 cm Rosa Robert MD Work Phone: [facility] 03-28-2023 10:59-0400 Body mass index (BMI) [Ratio] 21.65 kg/m2 Rosa Robert MD Work Phone: [facility] 03-28-2023 10:59-0400 Body weight 55.43 kg Rosa Robert MD Work Phone: [facility] 03-28-2023 10:59-0400 Diastolic blood pressure 68 mm[Hg] Rosa Robert MD Work Phone: [facility] 03-28-2023 10:59-0400 Heart rate 92 /min Rosa Robert MD Work Phone: [facility] [employer] 03-28-2023 10:59-0400 SaO2% (BldA) [Mass fraction] 91 % Rosa Robert MD Work Phone: [facility] 03-28-2023 10:59-0400 Systolic blood pressure 110 mm[Hg] Rosa Robert MD Work Phone: [facility] 03-25-2022 10:59-0400 Diastolic Blood Pressure NBP [address] EFREN NIETO MD [facility] 03-25-2022 10:59-0400 Heart rate 81 /min DR EFREN NIETO MD [facility] 03-25-2022 10:59-0400 Respiratory rate 20 /min DR EFREN NIETO MD [facility] 03-25-2022 10:59-0400 Systolic Blood Pressure NBP [address] EFREN NIETO MD [facility] 03-25-2022 10:54-0400 Diastolic Blood Pressure NBP [address] EFREN NIETO MD [facility] 03-25-2022 10:54-0400 Heart rate 67 /min DR EFREN NIETO MD [facility] 03-25-2022 10:54-0400 Respiratory rate 23 /min DR EFREN NIETO MD [facility] 03-25-2022 10:54-0400 Systolic Blood Pressure NBP [address] EFREN NIETO MD [facility] 03-25-2022 10:45-0400 Diastolic Blood Pressure NBP [address] EFREN NIETO MD [facility] 03-25-2022 10:45-0400 Heart rate 89 /min DR EFREN NIETO MD [facility] 03-25-2022 10:45-0400 Respiratory rate 23 /min DR EFREN NIETO MD [facility] 03-25-2022 10:45-0400 Systolic Blood Pressure NBP [address] EFREN NIETO MD [facility] 03-25-2022 08:42-0400 Body height [address] EFREN NIETO MD [facility] 03-25-2022 08:42-0400 Body temperature 96.8 [degF] DR EFREN NIETO MD [facility] 03-25-2022 08:42-0400 Body weight 59.[address] EFREN NIETO MD [facility] 03-25-2022 08:42-0400 Body weight 23.09 kg/m2 DR EFREN NIETO MD [facility] 03-25-2022 08:42-0400 Diastolic blood pressure 79 mm[Hg] DR EFREN NIETO MD [facility] 03-25-2022 08:42-0400 Heart rate 94 /min DR EFREN NIETO MD [facility] 03-25-2022 08:42-0400 Systolic blood pressure 153 mm[Hg] DR EFREN NIETO MD [facility] 01-18-2022 11:23-0400 Body height 159 cm Lawanda Lloyd APRN.[employer] Work Phone: [facility] 01-18-2022 11:23-0400 Body temperature 98.01 [degF] Lawanda Lloyd MACHINE [employer] Work Phone: [facility] 01-18-2022 11:23-0400 Body weight 58.15 kg Lawanda Wegas [employer]ACHINE [employer] Work Phone: [facility] 01-18-2022 11:23-0400 Diastolic blood pressure 64 mm[Hg] Lawanda Lloyd [employer] Work Phone: [facility] 01-18-2022 11:23-0400 Heart rate 80 /min Lawanda Petersongas [employer] Work Phone: [facility] 01-18-2022 11:23-0400 SaO2% (BldA) [Mass fraction] 100 % Lawanda Petersongas [employer] Work Phone: [facility] 01-18-2022 11:23-0400 Systolic blood pressure 138 mm[Hg] Lawanda Petersongas [employer] Work Phone: [facility] 12-07-2021 13:14-0400 Body height 159 cm Lawanda Lloyd [employer] Work Phone: [facility] 12-07-2021 13:14-0400 Body temperature 98.2 [degF] Lawanda Kincaids [employer] Work Phone: [facility] 12-07-2021 13:14-0400 Body weight 59.88 kg Lawanda Kincaids [employer] Work Phone: [facility] 12-07-2021 13:14-0400 Diastolic blood pressure 58 mm[Hg] Lawanda Petersongas [employer] Work Phone: [facility] 12-07-2021 13:14-0400 Heart rate 98 /min Lawanda Petersongas [employer] Work Phone: [facility] 12-07-2021 13:14-0400 Respiratory rate 12 /min Lawanda Petersongas [employer] Work Phone: [facility] 12-07-2021 13:14-0400 SaO2% (BldA) [Mass fraction] 99 % Lawanda Petersongas [employer] Work Phone: [facility] 12-07-2021 13:14-0400 Systolic blood pressure 115 mm[Hg] Lawanda Kincaids [employer] Work Phone: [facility] Encounters Encounter Date Encounter Type Care Provider Facility Start: 10-01-2023 End: 10-01-2023 ambulatory ROSA ROBERT [facility] Start: 10-01-2023 End: 10-01-2023 Office outpatient visit 25 minutes Rosa Robert MD Work Phone: [facility] Procedures Date Procedure Procedure Detail Performing Clinician Start: 10-01-2023 Hemoglobin glycosylated a1c Rosa Robert MD Work Phone: Start: 03-28-2023 Comprehensive metabo lic panel Rosa Robert MD Work Phone: Start: 03-28-2023 Lipid panel Rosa Biggs MD Work Phone: Start: 03-28-2023 Urine albumin quantitative Rosa Robert MD Work Phone: Start: 01-18-2022 Radiologic exam ches t 2 views Lawanda Lloyd APRN.[employer] Work Phone: Start: 12-07-2021 Radiologic exam ches t 2 views Nicolasa Hutchinson MD, PhD Work Phone: Start: 09-11-2020 CLINICAL DOCUMENTATION CLERK MODIFIED BARIUM SWALLOW STUDY (MBS) Rosa Robert Work Phone: Operation on lung DR EFREN NIETO MD Plan of Treatment Date Care Activity Detail Author Start: 02-17-2030 DTaP/Tdap/Td vaccine (2 - Td) DTaP/Tdap/Td vaccine (2 - Td) [facility] [place] [place] Start: 02-17-2030 DTaP/Tdap/Td Vaccine s (2 - Td or Tdap) DTaP/Tdap/Td Vaccines (2 - Td or Tdap) [facility] Start: 02-17-2030 Urine microalbumin profile DTAP,TDAP,TD (2 - Td or Tdap) [facility] Start: 04-27-2024 Medicare Annual Well ness (AWV) Medicare Annual Wellness (AWV) [facility] Start: 03-31-2024 End: 03-31-2024 Patient encounter procedure 03/31/2024 10:30 AM EDT [address] [place] [address] Rosa Robert MD [address] [place] [address] [facility] Start: 03-30-2024 [facility] Start: 10-01-2023 End: 10-01-2023 Patient encounter procedure 10/01/2023 10:30 AM EST Office Visit [address] [place] [address] Rosa Robert MD [address] [place] [id number] [facility] Start: 09-28-2023 [facility] Start: 09-25-2023 COVID-19 Vaccine (4 - Booster for Moderna series) COVID-19 Vaccine (4 - Booster for Moderna series) [facility] Immunizations Immunization Date Immunization Notes Care Provider Fa cili 05-23-2023 Influenza, Seasonal, Quadrivalent, Adjuvanted Rosa Robert MD Work Phone: [facility] 10-30-2022 Pneumococcal Conjuga te PCV20, Pf (Prevnar 20) Rosa Robert MD Work Phone: [facility] 07-03-2022 Influenza, Seasonal, Quadrivalent, Adjuvanted Lisset Boo [employer] Work Phone: [facility] 07-03-2022 influenza virus vacc ine, unspecified formulation Rosa Robert MD Work Phone: [facility] 06-28-2021 influenza (aIIV4) vaccine, age 65+ yr, quadrivalent, PF (FLUAD QUADRIVALENT) Lawanda Lloyd [employer] Work Phone: [facility] 06-28-2021 unknown vaccine or immune globulin Lawanda Lloyd [employer] Work Phone: [facility] 02-14-2021 Moderna SARS-CoV-2 Vaccination Lisset Boo [employer] Work Phone: [facility] 06-08-2020 influenza, high dose seasonal, preservative-free [facility] 06-08-2020 unknown vaccine or immune globulin Lawanda Lloyd [employer] Work Phone: [facility] 02-18-2020 tetanus toxoid, redu karon diphtheria toxoid, and acellular pertussis vaccine, adsorbed [facility] 08-20-2019 zoster vaccine recombinant [facility] 06-25-2019 zoster vaccine recombinant [facility] 06-23-2019 influenza, high dose seasonal, preservative-free [facility] 06-19-2018 influenza, high dose seasonal, preservative-free [facility] 06-30-2017 influenza, high dose seasonal, preservative-free [facility] 06-28-2016 Influenza Vaccine, unspecified formulation [facility] [place] 06-28-2016 influenza virus vacc ine, unspecified formulation Lisset Boo [employer] Work Phone: [facility] 06-28-2016 influenza, high dose seasonal, preservative-free [facility], [place] 06-28-2016 influenza, seasonal, injectable Lawanda Lloyd [employer] Work Phone: [facility] 06-28-2016 Influenza, [place], unspecified formulation Lawanda Lloyd [employer] Work Phone: [facility] 06-28-2016 pneumococcal polysaccharide vaccine, 23 valent [facility] 12-11-2015 zoster vaccine, live [facility] 06-30-2015 Influenza Vaccine, unspecified formulation [facility] , [place] 06-30-2015 influenza virus vacc ine, unspecified formulation Lisset Boo [employer] Work Phone: [facility] 06-30-2015 influenza, high dose seasonal, preservative-free [facility], [place] 06-30-2015 influenza, seasonal, injectable Lawanda Lloyd [employer] Work Phone: [facility] 06-30-2015 Influenza, [place], unspecified formulation Lawanda Lloyd [employer] Work Phone: [facility] 06-30-2015 pneumococcal conjuga te vaccine, 13 valent [facility] 07-11-2014 Influenza Vaccine, unspecified formulation [facility] , [place] 07-11-2014 influenza virus vacc ine, unspecified formulation Lisset Boo [employer] Work Phone: [facility] 07-11-2014 influenza, seasonal, injectable Lawanda Lloyd [employer] Work Phone: [facility] 07-11-2014 Influenza, [place], unspecified formulation Lawanda Lloyd [employer] Work Phone: [facility] Payers Date Payer Category Payer Unknown [id number] 2011 Unknown [employer] CARD PPO OOS [id number] 2011-Present [phone] [address] [place] [address] PPO [id number] 2011 Unknown [id number] 2011 Unknown [id number] 2006 Medicare [id number] 2006 Medicare MEDICARE MEDICAR E A AND B [id number] 2006-Present [phone] [address] [address] [place] [address] Medicare [id number] 2006 Medicare [id number] Social History Date Type Detail Facility Start: 12-24-1954 End: 07-24-2022 Tobacco smoking status NHIS Current every day smoker [place], [place] Start: 12-24-1954 History of tobacco use Cigarette Smo ker [place] Start: 08-21-2020 End: 09-30-2023 Cigarettes smoked current (pack per day) - Reported [place] Start: 08-21-2020 End: 07-24-2022 Tobacco use and exposure Never used [place] Start: 08-21-2020 End: 10-01-2023 Alcohol intake Current non-drinker of alcohol (finding) [place] Start: 12-23-2018 History SDOH Financial 4 [place] Start: 12-23-2018 History SDOH Food Worry 1 [place] Start: 12-23-2018 History SDOH Transpo rt Med 2 [place] Start: 1940 Sex Assigned At Not on file M [place], [place] Start: 11-27-2021 End: 03-28-2023 Exposure to SARS-CoV-2 (event) Not sure [place] Start: 12-07-2021 End: 01-18-2022 Alcohol intake Ex-drinker (finding) [facility] Tobacco smoking status No Smokin g Status Entered [facility] Sex Assigned At Male [facility] Start: 06-08-2022 End: 06-25-2022 Exposure to SARS-CoV-2 (event) Unable to assess [facility] Work Phone: Start: 10-10-2022 End: 09-30-2023 Tobacco use panel [facility] [employer] How hard is it for y ou to pay for the very basics like food, housing, medical care, and heating Not hard at all [employer] (I/We) worried whejosee er (my/our) food would run out before (I/we) got money to buy more. Never true [employer] In the past 12 month s, was there a time when you were not able to pay the mortgage or rent on time? No [employer] Medical Equipment Procedure Code Equipment Code Equipment Origin al Text Equipment Identifier Dates Test Bs bid [id number] Start: 10-27-2019 True Trac lancet s test BS twice a day [id number] Start: 06-06-2020 Coil Interlock V ortx Fibered Idc 6mm [place] 6.7mm 80mm - [id number] Start: 11-27-2021 Coil Interlock V ortx Fibered Idc 6mm [place] 6.7mm 80mm - [id number] Start: 11-27-2021 Coil Interlock V ortx Fibered Idc 6mm [place] 6.7mm 80mm - [id number] Start: 11-27-2021 Test blood sugar twice a day [id number] Start: 08-22-2022 End: 08-25-2023 Test blood sugar twice a day [id number] Start: 08-25-2023 Goals Date Patient Goal Desired Activity /State Functional Status Date Assessment Result Facility 03-25-2022 Functional Status Patient Identified [facility] 03-25-2022 Functional Status [facility] Clinical Notes 12-07-2021 to 10-01-2023 Assessment & Plan Note - Rsoa Robert MD - 10/01/2023 10:59 AM ESTAssessment & Plan Note - Rosa Robert MD - 10/01/2023 10:59 AM Kirsten Butts MA - 10/01/2023 10:30 AM EST Note Date & Type Note Facility 10-01-2023 Evaluation + Plan note Associated Problem(s): Hyperlipidemia Stable, continue rosuvastatin 20 mg daily [employer] 10-01-2023 Miscellaneous Notes Associated Problem(s): Hyperlipidemia Stable, continue rosuvastatin 20 mg daily Associated Problem(s): Fecal soiling This seems like a chronic problem due to age where the muscle tone is decreased, recommend he bathe regularly and make sure that he is clean after bowel movements. Associated Problem(s): Anxiety Remission, continue Celexa 10 mg daily Associated Problem(s): Recurrent major depressive disorder, in full remission (HCC) Remission, continue Celexa 10 mg daily Associated Problem(s): Uncontrolled type 2 diabetes mellitus with hyperglycemia (HCC) Stable, will get A1c today continue metformin 500 mg twice a day and glimepiride 2 mg daily Associated Problem(s): Pulmonary emphysema (HCC) Stable, continue Trelegy daily and albuterol as needed. Associated Problem(s): Restless leg syndrome Stable, currently on no medications documented in this encounter [facility] 10-01-2023 Evaluation + Plan note Associated Problem(s): Fecal soiling This seems like a chronic problem due to age where the muscle tone is decreased, recommend he bathe regularly and make sure that he is clean after bowel movements. [facility] [employer] 10-01-2023 Evaluation + Plan note Associated Problem(s): Anxiety Remission, continue Celexa 10 mg daily [facility] [employer] 10-01-2023 Evaluation + Plan note Associated Problem(s): Recurrent major depressive disorder, in full remission (HCC) Remission, continue Celexa 10 mg daily [facility] [employer] 10-01-2023 Evaluation + Plan note Associated Problem(s): Uncontrolled type 2 diabetes mellitus with hyperglycemia (HCC) Stable, will get A1c today continue metformin 500 mg twice a day and glimepiride 2 mg daily [facility] [employer] 10-01-2023 Evaluation + Plan note Associated Problem(s): Pulmonary emphysema (HCC) Stable, continue Trelegy daily and albuterol as needed. [facility] [employer] 10-01-2023 Evaluation + Plan note Associated Problem(s): Restless leg syndrome Stable, currently on no medications [facility] [employer] 10-01-2023 History of Present illness Narrative Patient verified by last name and date of . Images from the original note were not included. 10/01/2023 Zenon Davidson (: 1940) is a 82 y.o. male , Established patient, here for evaluation of the following chief complaint(s): Restless Legs, Anxiety, Depression, Hyperlipidemia, GERD, Diabetes, Medication Check (6 month), and Health Maintenance (Rsv vaccine- not done/4th covid- has had 3) ASSESSMENT/PLAN: 1. Uncontrolled type 2 diabetes mellitus with hyperglycemia (HCC) Assessment & Plan: Stable, will get A1c today continue metformin 500 mg twice a day and glimepiride 2 mg daily Orders: - AMB POC HEMOGLOBIN A1C 2. Panlobular emphysema (HCC) Assessment & Plan: Stable, continue Trelegy daily and albuterol as needed. 3. Restless leg syndrome Assessment & Plan: Stable, currently on no medications 4. Pure hypercholesterolemia Assessment & Plan: Stable, continue rosuvastatin 20 mg daily 5. Anxiety Assessment & Plan: Remission, continue Celexa 10 mg daily 6. Recurrent major depressive disorder, in full remission (HCC) Assessment & Plan: Remission, continue Celexa 10 mg daily 7. Fecal soiling Assessment & Plan: This seems like a chronic problem due to age where the muscle tone is decreased, recommend he bathe regularly and make sure that he is clean after bowel movements. Follow up in about 6 months (around 03/31/2024) for awv. SUBJECTIVE/OBJECTIVE: LILIANA David comes in today for 6-month follow-up for his diabetes, restless leg syndrome, depression and anxiety, GERD and hyperlipidemia. His only complaint at this time is he seeps a little bit of stool and has some vaginal make his bottom sore, he had a colonoscopy a year and a half ago which was negative. Review of Systems Constitutional: Negative for activity change, appetite change, chills, fever and unexpected weight change. HENT: Negative for ear pain and sore throat. Respiratory: Negative for shortness of breath. Cardiovascular: Negative for chest pain and palpitations. Gastrointestinal: Negative for abdominal pain, blood in stool, constipation and diarrhea. Genitourinary: Negative for dysuria, frequency, hematuria and urgency. Musculoskeletal: Negative for arthralgias and back pain. Skin: Negative. Neurological: Negative for weakness and numbness. Psychiatric/Behavioral: Negative for dysphoric mood. The patient is not nervous/anxious. Vitals: 10/01/23 1027 BP: 133/62 Pulse: 89 SpO2: 92% Weight: 120 lb 12.8 oz (54.8 kg) Height: 5' 3 (1.6 m) Physical Exam Vitals and nursing note reviewed. Constitutional: General: He is not in acute distress. Appearance: Normal appearance. HENT: Head: Normocephalic. Mouth/Throat: Mouth: Mucous membranes are moist. Pharynx: Oropharynx is clear. Eyes: Extraocular Movements: Extraocular movements intact. Pupils: Pupils are equal, round, and reactive to light. Neck: Thyroid: No thyromegaly. Vascular: No carotid bruit. Cardiovascular: Rate and Rhythm: Normal rate and regular rhythm. Heart sounds: Normal heart sounds. Pulmonary: Effort: Pulmonary effort is normal. Breath sounds: Normal breath sounds. Abdominal: General: Bowel sounds are normal. Palpations: Abdomen is soft. Genitourinary: Rectum: External hemorrhoid present. Abnormal anal tone. Musculoskeletal: Cervical back: Neck supple. Lymphadenopathy: Cervical: No cervical adenopathy. Neurological: Mental Status: He is alert. An electronic signature was used to authenticate this note. Rosa Robert MD 10/01/2023 11:00 AM documented in this encounter [facility] 09-29-2023 Telephone encounter Note Prescription Request: Last medication check: 10/10/22 Last physical exam: 03/28/23 Next scheduled appointment: 10/01/23 Last date of refill on this medication 04/16/23 90 day 1 refill [facility] 09-29-2023 Miscellaneous Notes Prescription Request: Last medication check: 10/10/22 Last physical exam: 03/28/23 Next scheduled appointment: 10/01/23 Last date of refill on this medication 04/16/23 90 day 1 refill documented in this encounter [facility] 08-25-2023 Telephone encounter Note Patient stopped in requesting a refill on his true metrix test strips. Prescription Request: Last medication check: 10/10/22 Last physical exam: 03/28/23 Next scheduled appointment: 10/01/22 Last date of refill on this medication 08/22/22 180 strips 1 refill [facility] 08-25-2023 Miscellaneous Notes Patient stopped in requesting a refill on his true metrix test strips. Prescription Request: Last medication check: 10/10/22 Last physical exam: 03/28/23 Next scheduled appointment: 10/01/22 Last date of refill on this medication 08/22/22 180 strips 1 refill documented in this encounter [facility] 07-03-2023 Telephone encounter Note Reviewed chart. Refill appropriate. RX sent. [facility] 07-03-2023 Miscellaneous Notes Reviewed chart. Refill appropriate. RX sent. Prescription Request: Last medication check: 10/10/2022 Last physical exam: 03/28/23 Next scheduled appointment: 10/01/2023 Last date of refill on this medication: 01/10/23 documented in this encounter [facility] 07-03-2023 Telephone encounter Note Prescription Request: Last medication check: 10/10/2022 Last physical exam: 03/28/23 Next scheduled appointment: 10/01/2023 Last date of refill on this medication: 01/10/23 [facility] 05-22-2023 Telephone encounter Note Prescription Request: Last medication check: 10/10/22 Last physical exam: 03/28/23 Next scheduled appointment: 10/01/23 Last date of refill on this medication 12/03/22 90 days 1 refill [facility] 05-22-2023 Miscellaneous Notes Prescription Request: Last medication check: 10/10/22 Last physical exam: 03/28/23 Next scheduled appointment: 10/01/23 Last date of refill on this medication 12/03/22 90 days 1 refill documented in this encounter [facility] 04-16-2023 Telephone encounter Note Patient stopped into the office asking for refills on his rosuvastatin and metformin. Prescription Request: Last medication check: 10/10/22 Last physical exam: 03/28/23 Next scheduled appointment: 10/01/23 Last date of refill on this medication Rosuvastatin 11/11/22 90 days 1 refill Metformin 11/29/22 90 days 1 refill [facility] 04-16-2023 Miscellaneous Notes Patient stopped into the office asking for refills on his rosuvastatin and metformin. Prescription Request: Last medication check: 10/10/22 Last physical exam: 03/28/23 Next scheduled appointment: 10/01/23 Last date of refill on this medication Rosuvastatin 11/11/22 90 days 1 refill Metformin 11/29/22 90 days 1 refill documented in this encounter [facility] 03-28-2023 Miscellaneous Notes March 28, 2023 3:33 PM - spoke with patient and reviewed that Dr Hutchinson reviewed imaging results and is in agreement that the nodule area in the RLL is going, would like to obtain a bronch for biopsy and refer for SBRT if possible. pt updated on the above and NOT interested in surgery. pt would like to have dr pritchard's office work to get bronch bx, will call with updates to see what can be arranged documented in this encounter [facility] 03-28-2023 Evaluation + Plan note Associated Problem(s): Recurrent major depressive disorder, in full remission (HCC) Partial remission, continue Celexa 10 mg daily [facility] 03-28-2023 Evaluation + Plan note Associated Problem(s): Hyperlipidemia Controlled, continue rosuvastatin 20 mg daily [facility] 03-28-2023 Evaluation + Plan note Associated Problem(s): Anxiety Stable, continue Celexa 10 mg daily [facility] 03-28-2023 Miscellaneous Notes Associated Problem(s): Recurrent major depressive disorder, in full remission (HCC) Partial remission, continue Celexa 10 mg daily Associated Problem(s): Hyperlipidemia Controlled, continue rosuvastatin 20 mg daily Associated Problem(s): Anxiety Stable, continue Celexa 10 mg daily Associated Problem(s): Uncontrolled type 2 diabetes mellitus with hyperglycemia (HCC) Uncontrolled, blood sugars that he brings in look much better than they have in the past we will get repeat lab work today continue glimepiride 2 mg daily and metformin 500 mg twice a day Associated Problem(s): Gastroesophageal reflux disease Controlled, continue Protonix 40 mg daily Associated Problem(s): Peripheral vascular disease due to secondary diabetes (HCC) Stable, continue Pletal twice a day Associated Problem(s): Pulmonary emphysema (HCC) Stable, continue Trelegy and albuterol as needed. 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) In remission, follow-up at [facility] as scheduled documented in this encounter [facility] 03-28-2023 Miscellaneous Notes Associated Problem(s): Recurrent major depressive disorder, in full remission (HCC) Partial remission, continue Celexa 10 mg daily Associated Problem(s): Hyperlipidemia Controlled, continue rosuvastatin 20 mg daily Associated Problem(s): Anxiety Stable, continue Celexa 10 mg daily Associated Problem(s): Uncontrolled type 2 diabetes mellitus with hyperglycemia (HCC) Uncontrolled, blood sugars that he brings in look much better than they have in the past we will get repeat lab work today continue glimepiride 2 mg daily and metformin 500 mg twice a day Associated Problem(s): Gastroesophageal reflux disease Controlled, continue Protonix 40 mg daily Associated Problem(s): Peripheral vascular disease due to secondary diabetes (HCC) Stable, continue Pletal twice a day Associated Problem(s): Pulmonary emphysema (HCC) Stable, continue Trelegy and albuterol as needed. 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) In remission, follow-up at [facility] as scheduled documented in this encounter [facility] 03-28-2023 Evaluation + Plan note Associated Problem(s): Uncontrolled type 2 diabetes mellitus with hyperglycemia (HCC) Uncontrolled, blood sugars that he brings in look much better than they have in the past we will get repeat lab work today continue glimepiride 2 mg daily and metformin 500 mg twice a day [facility] 03-28-2023 Evaluation + Plan note Associated Problem(s): Gastroesophageal reflux disease Controlled, continue Protonix 40 mg daily [facility] 03-28-2023 Evaluation + Plan note Associated Problem(s): Peripheral vascular disease due to secondary diabetes (HCC) Stable, continue Pletal twice a day [facility] 03-28-2023 Evaluation + Plan note Associated Problem(s): Pulmonary emphysema (HCC) Stable, continue Trelegy and albuterol as needed. 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 Images from the original note were not included. 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 Circulatory Peripheral vascular disease due to secondary diabetes (HCC) Stable, continue Pletal twice a day Digestive Gastroesophageal reflux disease Controlled, continue Protonix 40 mg daily Endocrine/Metabolic Uncontrolled type 2 diabetes mellitus with hyperglycemia (HCC) Uncontrolled, blood sugars that he brings in look much better than they have in the past we will get repeat lab work today continue glimepiride 2 mg daily and metformin 500 mg twice a day Relevant Orders Hemoglobin A1c Comprehensive metabolic panel Microalbumin / creatinine urine ratio Other Anxiety Stable, continue Celexa 10 mg daily Recurrent major depressive disorder, in full remission (HCC) Partial remission, continue Celexa 10 mg daily Hyperlipidemia Controlled, continue rosuvastatin 20 mg daily Relevant Orders Lipid panel Other Visit Diagnoses Medicare annual wellness visit, subsequent - Primary Follow up in about 6 months (around 09/28/2023). Subjective LILIANA Hooks comes in today for his annual Medicare well visit and for follow-up on his multiple health issues see problem list. He really has no complaints today brings in blood sugar numbers that are actually very good and his blood pressure is excellent today he is following up with [facility] on his pulmonary nodules and lung cancer. I have reviewed and reconciled the medication list with the patient today. Current Outpatient Medications Medication Sig Dispense Refill aspirin 81 MG EC tablet Take 81 mg by mouth. betamethasone valerate (Valisone) 0.1 % lotion Apply topically 2 times daily. To scalp 150 mL 1 cilostazol (Pletal) 100 MG tablet take 1 tablet by mouth every morning and 1 tablet by mouth every evening 180 tablet 1 citalopram (CeleXA) 10 MG tablet Take 1 tablet (10 mg) by mouth daily. 90 tablet 1 Tsrfbxfqdku-Vvqxngham-Bueqgl (Trelegy Ellipta) 200-62.5-25 MCG/INH aerosol powder INHALE ONE PUFF BY MOUTH DAILY WITH GOOD ORAL CARE glimepiride (Amaryl) 2 MG tablet Take 1 tablet (2 mg) by mouth every morning (before breakfast). 90 tablet 1 metFORMIN (Glucophage) 500 MG tablet Take 1 tablet (500 mg) by mouth in the morning and 1 tablet (500 mg) in the evening. Take with meals. 180 tablet 1 pantoprazole (ProtoNix) 40 MG EC tablet take 1 tablet by mouth every morning 90 tablet 1 rosuvastatin (Crestor) 20 MG tablet Take 1 tablet (20 mg) by mouth daily. 90 tablet 1 True Metrix Blood Glucose Test test strip Test blood sugar twice a day 180 each 1 No current facility-administered medications for this visit. There are no discontinued medications. List of current healthcare providers: Patient Care Team: Rosa Robert MD as PCP - General Over the past 2 weeks, how often have you been bothered by any of the following problems? Trouble falling or staying asleep, or sleeping too much: Several days Feeling tired or having little energy: More than half the days Poor appetite or overeating: Not at all Feeling bad about yourself - or that you are a failure or have let yourself or your family down: Not at all Trouble concentrating on things, such as reading the newspaper or watching television: Not at all Moving or speaking so slowly that other people could have noticed? Or the opposite - being so fidgety or restless that you have been moving around a lot more than usual.: Several days Thoughts that you would be better off or hurting yourself in some way: Not at all Patient Health Questionnaire-9 Score: 5 The following health maintenance schedule was reviewed with the patient and provided in printed form in the after visit summary: Health Maintenance Topic Date Due Medicare Annual Wellness (AWV) Never done Depresssion Monitoring 03/25/2023 Influenza Vaccine (1) 05/16/2023 COVID-19 Vaccine (4 - Booster for Moderna series) 09/25/2023 (Originally 10/27/2021) DTaP/Tdap/Td Vaccines (2 - Td or Tdap) 02/17/2030 Pneumococcal Vaccine: 65+ Years Completed Zoster Vaccines Completed HIB Vaccines Aged Out Hepatitis B Vaccines Aged Out IPV Vaccines Aged Out Hepatitis A Vaccines Aged Out Meningococcal Vaccine Aged Out Rotavirus Vaccines Aged Out HPV Vaccines Aged Out Orders Placed This Encounter Procedures Lipid panel Standing Status: Future Number of Occurrences: 1 Standing Expiration Date: 03/28/2024 Hemoglobin A1c Standing Status: Future Number of Occurrences: 1 Standing Expiration Date: 03/28/2024 Comprehensive metabolic panel Standing Status: Future Number of Occurrences: 1 Standing Expiration Date: 03/28/2024 Microalbumin / creatinine urine ratio Standing Status: Future Number of Occurrences: 1 Standing Expiration Date: 03/28/2024 Health Risk Assessment: General In general, how would you say your health is?: (!) Fair In the past 7 days, have you experienced any of the following: New or Increased Pain, New or Increased Fatigue, Loneliness, Social Isolation, Stress or Anger?: No Do you get the social and emotional suppport you need?: Yes Interventions: Health Habits / Nutrition On average, how many days per week do you engage in moderate to strenous exercise (like a brisk walk)?: (!) 0 days On average, how man minutes do you engage in exercise at this level?: (!) 0 min Have you lost any weight without trying in the past 3 months? : Yes Have you seen the dentist within the past year?: (!) No Interventions: Dental exam overdue: Patient declines dental evaluation and has dentures Hearing / Vision Do you or your family notice any trouble with your hearing that hasn't been managed with hearing aids?: (!) Yes Do you have difficulty driving, watching TV, or doing any of your daily activities because of your eyesight?: (!) Yes Have you had an eye exam within the past year?: Yes No results found. Interventions: Hearing concerns: Patient declines any further evaluation / treatment for hearing issues and Vision concerns: Patient declines any further evaluation / treatment for this issue Safety Do you have a working smoke detector?: Yes Do you have any tripping hazards - loose or unsecured carpets or rugs?: No Do you have any tripping hazards - clutter in doorways, halls, or stairs?: No Do you have either shower bars, grab bars, non-slip mats or non-slip surfaces in your shower or bathtub? : Yes Do all your stairways have a railing or banister? : (!) No Do you fasten your seatbelt when you are in a car?: Yes Interventions: Patient declines any further evaluation / treatment for this issue ADL In the past 7 days, did you need help from others to perform any of the following everyday activities: Eating, dressing, grooming,bathing, toileting, or walking / balance? : No In the past 7 days, did you need help from others to take care of any of the following: laundry, housekeeping, banking / finances,shopping, telephone use, food preparation, transportation, or taking medications? : Yes Select all that apply: Transportation, Banking / Finances, Shopping Interventions: Living Will Do you have a living will?: Yes Interventions: Cognitive: Cognitive Screening: Mini-Cog Clock Drawing Test (CDT): 2 Words Recalled: 2 Total Score: 4 Total Score Interpretation: Normal Mini-Cog Interventions: Fall Risk: Interventions: No falls Depression Screening: Over the past 2 weeks, how often have you been bothered by any of the following problems? Little interest or pleasure in doing things: Several days Feeling down, depressed, or hopeless: Not at all Patient Health Questionnaire-2 Score: 1 Over the past 2 weeks, how often have you been bothered by any of the following problems? Trouble falling or staying asleep, or sleeping too much: Several days Feeling tired or having little energy: More than half the days Poor appetite or overeating: Not at all Feeling bad about yourself - or that you are a failure or have let yourself or your family down: Not at all Trouble concentrating on things, such as reading the newspaper or watching television: Not at all Moving or speaking so slowly that other people could have noticed? Or the opposite - being so fidgety or restless that you have been moving around a lot more than usual.: Several days Thoughts that you would be better off or hurting yourself in some way: Not at all Patient Health Questionnaire-9 Score: 5 If you checked off any problems on this questionnaire so far, How difficult have these problems made it for you to do your work, take care of things at home, or get along with other people?: Not difficult at all Interventions: Tobacco Use: Social History Tobacco Use Smoking Status Every Day Packs/day: 1.00 Types: Cigarettes Start date: 12/24/1954 Smokeless Tobacco Never Interventions: Alcohol Use: Audit Alcohol Screening Q2: How many drinks containing alcohol do you have on a typical day when you are drinking?: Patient does not drink Interventions: Drug Use: Drug Abuse Screening Test (DAST-10) Have you used drugs other than those required for medical reasons?: No Interventions: Review of Systems Constitutional: Negative for activity change, appetite change, chills, fever and unexpected weight change. HENT: Negative for ear pain and sore throat. Respiratory: Negative for shortness of breath. Cardiovascular: Negative for chest pain and palpitations. Gastrointestinal: Negative for abdominal pain, blood in stool, constipation and diarrhea. Genitourinary: Negative for dysuria, frequency, hematuria and urgency. Musculoskeletal: Negative for arthralgias and back pain. Skin: Negative. Neurological: Negative for weakness and numbness. Psychiatric/Behavioral: Negative for dysphoric mood. The patient is not nervous/anxious. Immunization History Administered Date(s) Administered Influenza, High Dose Seasonal, Preservative Free 06/30/2015, 06/28/2016, 06/30/2017, 06/19/2018, 06/23/2019, 06/08/2020 Influenza, Seasonal, Quadrivalent, Adjuvanted 06/28/2021, 07/03/2022 Influenza, Unspecified 07/11/2014, 06/30/2015, 06/28/2016 Influenza, seasonal, injectable 07/11/2014 Moderna SARS-CoV-2 Vaccination 01/12/2021, 02/14/2021, 09/01/2021 Pneumococcal Conjugate PCV 13 06/30/2015 Pneumococcal Conjugate PCV20, Pf (Prevnar 20) 10/30/2022 Pneumococcal Polysaccharide PPSV23 06/28/2016 Tdap 02/18/2020 Zoster, Recombinant 06/25/2019, 08/20/2019 Zoster, live 12/11/2015 Allergies Allergen Reactions Acyclovir Other reaction(s): Other/See Comments anti-ulcer medications. Misoprostol Outpatient Medications Prior to Visit Medication Sig Dispense Refill aspirin 81 MG EC tablet Take 81 mg by mouth. betamethasone valerate (Valisone) 0.1 % lotion Apply topically 2 times daily. To scalp 150 mL 1 cilostazol (Pletal) 100 MG tablet take 1 tablet by mouth every morning and 1 tablet by mouth every evening 180 tablet 1 citalopram (CeleXA) 10 MG tablet Take 1 tablet (10 mg) by mouth daily. 90 tablet 1 Uzkespwdulg-Yqoucfvtn-Bilssl (Trelegy Ellipta) 200-62.5-25 MCG/INH aerosol powder INHALE ONE PUFF BY MOUTH DAILY WITH GOOD ORAL CARE glimepiride (Amaryl) 2 MG tablet Take 1 tablet (2 mg) by mouth every morning (before breakfast). 90 tablet 1 metFORMIN (Glucophage) 500 MG tablet Take 1 tablet (500 mg) by mouth in the morning and 1 tablet (500 mg) in the evening. Take with meals. 180 tablet 1 pantoprazole (ProtoNix) 40 MG EC tablet take 1 tablet by mouth every morning 90 tablet 1 rosuvastatin (Crestor) 20 MG tablet Take 1 tablet (20 mg) by mouth daily. 90 tablet 1 True Metrix Blood Glucose Test test strip Test blood sugar twice a day 180 each 1 No facility-administered medications prior to visit. Past Medical History: Diagnosis Date Anxiety Cheilitis Depression DM type 2 (diabetes mellitus, type 2) ([facility]) GERD (gastroesophageal reflux disease) Hyperlipidemia Hypertension Social History Socioeconomic History Marital status: Tobacco Use Smoking status: Every Day Packs/day: 1.00 Types: Cigarettes Start date: 12/24/1954 Smokeless tobacco: Never Substance and Sexual Activity Alcohol use: No Alcohol/week: 0.0 standard drinks of alcohol Drug use: No Social Determinants of Health Financial Resource Strain: Low Risk (09/25/2022) Overall Financial Resource Strain (CARDIA) Difficulty of Paying Living Expenses: Not hard at all Food Insecurity: No Food Insecurity (09/25/2022) Hunger Vital Sign Worried About Running Out of Food in the Last Year: Never true Ran Out of Food in the Last Year: Never true Transportation Needs: No Transportation Needs (09/25/2022) PRAPARE - Transportation Lack of Transportation (Medical): No Lack of Transportation (Non-Medical): No Physical Activity: Inactive (03/28/2023) Exercise Vital Sign Days of Exercise per Week: 0 days Minutes of Exercise per Session: 0 min Housing Stability: Unknown (03/28/2023) Housing Stability Vital Sign Unable to Pay for Housing in the Last Year: No Unstable Housing in the Last Year: No Past Surgical History: Procedure Laterality Date COLONOSCOPY LUNG SURGERY 11/27/2021 Past Surgical History: Procedure Laterality Date COLONOSCOPY LUNG SURGERY 11/27/2021 Family History Problem Relation Name Age of Onset Diabetes Mother No Known Problems Father Objective BP 110/68 Pulse 92 Ht 5' 3 (1.6 m) Wt 122 lb 3.2 oz (55.4 kg) SpO2 91% BMI 21.65 kg/m Physical Exam Vitals and nursing note reviewed. Constitutional: General: He is not in acute distress. Appearance: Normal appearance. HENT: Mouth/Throat: Mouth: Mucous membranes are moist. Pharynx: Oropharynx is clear. Eyes: Extraocular Movements: Extraocular movements intact. Pupils: Pupils are equal, round, and reactive to light. Neck: Vascular: No carotid bruit. Cardiovascular: Rate and Rhythm: Normal rate and regular rhythm. Heart sounds: Murmur heard. Systolic murmur is present with a grade of 2/6. Pulmonary: Effort: Pulmonary effort is normal. Breath sounds: Normal breath sounds. Abdominal: General: Bowel sounds are normal. Palpations: Abdomen is soft. Tenderness: There is no abdominal tenderness. Musculoskeletal: General: Normal range of motion. Cervical back: Neck supple. Lymphadenopathy: Cervical: No cervical adenopathy. Skin: General: Skin is warm and dry. Neurological: General: No focal deficit present. Mental Status: He is alert and oriented to person, place, and time. Psychiatric: Mood and Affect: Mood normal. Data Reviewed Labs: Imaging/Testing: Rosa Robert MD 03/28/2023 11:55 AM documented in this encounter [facility] 03-28-2023 History of Present illness Narrative Patient verified by last name and date of . Images from the original note were not included. [address] [id number] Visit type: Established Patient Reason for Visit: Medicare Annual Wellness Visit Subsequent and Blood Work Assessment and Plan Problem List Items Addressed This Visit Respiratory Malignant neoplasm of lower respiratory tract (HCC) In remission, follow-up at [facility] as scheduled Pulmonary emphysema (HCC) Stable, continue Trelegy and albuterol as needed. Digestive Gastroesophageal reflux disease Controlled, continue Protonix 40 mg daily Endocrine/Metabolic Uncontrolled type 2 diabetes mellitus with hyperglycemia (HCC) Uncontrolled, blood sugars that he brings in look much better than they have in the past we will get repeat lab work today continue glimepiride 2 mg daily and metformin 500 mg twice a day Relevant Orders Hemoglobin A1c (Completed) Comprehensive metabolic panel (Completed) Microalbumin / creatinine urine ratio (Completed) Other Anxiety Stable, continue Celexa 10 mg daily Recurrent major depressive disorder, in full remission (HCC) Partial remission, continue Celexa 10 mg daily Hyperlipidemia Controlled, continue rosuvastatin 20 mg daily Relevant Orders Lipid panel (Completed) Other Visit Diagnoses Medicare annual wellness visit, subsequent - Primary Follow up in about 6 months (around 09/28/2023). Subjective HPI Zenon comes in today for his annual Medicare well visit and for follow-up on his multiple health issues see problem list. He really has no complaints today brings in blood sugar numbers that are actually very good and his blood pressure is excellent today he is following up with [facility] on his pulmonary nodules and lung cancer. I have reviewed and reconciled the medication list with the patient today. Current Outpatient Medications Medication Sig Dispense Refill aspirin 81 MG EC tablet Take 81 mg by mouth. betamethasone valerate (Valisone) 0.1 % lotion Apply topically 2 times daily. To scalp 150 mL 1 cilostazol (Pletal) 100 MG tablet take 1 tablet by mouth every morning and 1 tablet by mouth every evening 180 tablet 1 citalopram (CeleXA) 10 MG tablet Take 1 tablet (10 mg) by mouth daily. 90 tablet 1 Eolvwbvbyqm-Ffwawyebd-Oygnbr (Trelegy Ellipta) 200-62.5-25 MCG/INH aerosol powder INHALE ONE PUFF BY MOUTH DAILY WITH GOOD ORAL CARE glimepiride (Amaryl) 2 MG tablet Take 1 tablet (2 mg) by mouth every morning (before breakfast). 90 tablet 1 metFORMIN (Glucophage) 500 MG tablet Take 1 tablet (500 mg) by mouth in the morning and 1 tablet (500 mg) in the evening. Take with meals. 180 tablet 1 pantoprazole (ProtoNix) 40 MG EC tablet take 1 tablet by mouth every morning 90 tablet 1 rosuvastatin (Crestor) 20 MG tablet Take 1 tablet (20 mg) by mouth daily. 90 tablet 1 True Metrix Blood Glucose Test test strip Test blood sugar twice a day 180 each 1 No current facility-administered medications for this visit. There are no discontinued medications. List of current healthcare providers: Patient Care Team: Rosa Robert MD as PCP - General Over the past 2 weeks, how often have you been bothered by any of the following problems? Trouble falling or staying asleep, or sleeping too much: Several days Feeling tired or having little energy: More than half the days Poor appetite or overeating: Not at all Feeling bad about yourself - or that you are a failure or have let yourself or your family down: Not at all Trouble concentrating on things, such as reading the newspaper or watching television: Not at all Moving or speaking so slowly that other people could have noticed? Or the opposite - being so fidgety or restless that you have been moving around a lot more than usual.: Several days Thoughts that you would be better off or hurting yourself in some way: Not at all Patient Health Questionnaire-9 Score: 5 The following health maintenance schedule was reviewed with the patient and provided in printed form in the after visit summary: Health Maintenance Topic Date Due Medicare Annual Wellness (AWV) Never done Influenza Vaccine (1) 05/16/2023 COVID-19 Vaccine (4 - Booster for Moderna series) 09/25/2023 (Originally 10/27/2021) Depresssion Monitoring 09/28/2023 DTaP/Tdap/Td Vaccines (2 - Td or Tdap) 02/17/2030 Pneumococcal Vaccine: 65+ Years Completed Zoster Vaccines Completed HIB Vaccines Aged Out Hepatitis B Vaccines Aged Out IPV Vaccines Aged Out Hepatitis A Vaccines Aged Out Meningococcal Vaccine Aged Out Rotavirus Vaccines Aged Out HPV Vaccines Aged Out Orders Placed This Encounter Procedures Lipid panel Standing Status: Future Number of Occurrences: 1 Standing Expiration Date: 03/28/2024 Hemoglobin A1c Standing Status: Future Number of Occurrences: 1 Standing Expiration Date: 03/28/2024 Comprehensive metabolic panel Standing Status: Future Number of Occurrences: 1 Standing Expiration Date: 03/28/2024 Microalbumin / creatinine urine ratio Standing Status: Future Number of Occurrences: 1 Standing Expiration Date: 03/28/2024 Health Risk Assessment: General In general, how would you say your health is?: (!) Fair In the past 7 days, have you experienced any of the following: New or Increased Pain, New or Increased Fatigue, Loneliness, Social Isolation, Stress or Anger?: No Do you get the social and emotional suppport you need?: Yes Interventions: Health Habits / Nutrition On average, how many days per week do you engage in moderate to strenous exercise (like a brisk walk)?: (!) 0 days On average, how man minutes do you engage in exercise at this level?: (!) 0 min Have you lost any weight without trying in the past 3 months? : Yes Have you seen the dentist within the past year?: (!) No Interventions: Dental exam overdue: Patient declines dental evaluation and has dentures Hearing / Vision Do you or your family notice any trouble with your hearing that hasn't been managed with hearing aids?: (!) Yes Do you have difficulty driving, watching TV, or doing any of your daily activities because of your eyesight?: (!) Yes Have you had an eye exam within the past year?: Yes No results found. Interventions: Hearing concerns: Patient declines any further evaluation / treatment for hearing issues and Vision concerns: Patient declines any further evaluation / treatment for this issue Safety Do you have a working smoke detector?: Yes Do you have any tripping hazards - loose or unsecured carpets or rugs?: No Do you have any tripping hazards - clutter in doorways, halls, or stairs?: No Do you have either shower bars, grab bars, non-slip mats or non-slip surfaces in your shower or bathtub? : Yes Do all your stairways have a railing or banister? : (!) No Do you fasten your seatbelt when you are in a car?: Yes Interventions: Patient declines any further evaluation / treatment for this issue ADL In the past 7 days, did you need help from others to perform any of the following everyday activities: Eating, dressing, grooming,bathing, toileting, or walking / balance? : No In the past 7 days, did you need help from others to take care of any of the following: laundry, housekeeping, banking / finances,shopping, telephone use, food preparation, transportation, or taking medications? : Yes Select all that apply: Transportation, Banking / Finances, Shopping Interventions: Living Will Do you have a living will?: Yes Interventions: Cognitive: Cognitive Screening: Mini-Cog Clock Drawing Test (CDT): 2 Words Recalled: 2 Total Score: 4 Total Score Interpretation: Normal Mini-Cog Interventions: Fall Risk: Interventions: No falls Depression Screening: Over the past 2 weeks, how often have you been bothered by any of the following problems? Little interest or pleasure in doing things: Several days Feeling down, depressed, or hopeless: Not at all Patient Health Questionnaire-2 Score: 1 Over the past 2 weeks, how often have you been bothered by any of the following problems? Trouble falling or staying asleep, or sleeping too much: Several days Feeling tired or having little energy: More than half the days Poor appetite or overeating: Not at all Feeling bad about yourself - or that you are a failure or have let yourself or your family down: Not at all Trouble concentrating on things, such as reading the newspaper or watching television: Not at all Moving or speaking so slowly that other people could have noticed? Or the opposite - being so fidgety or restless that you have been moving around a lot more than usual.: Several days Thoughts that you would be better off or hurting yourself in some way: Not at all Patient Health Questionnaire-9 Score: 5 If you checked off any problems on this questionnaire so far, How difficult have these problems made it for you to do your work, take care of things at home, or get along with other people?: Not difficult at all Interventions: Tobacco Use: Social History Tobacco Use Smoking Status Every Day Packs/day: 1.00 Types: Cigarettes Start date: 12/24/1954 Smokeless Tobacco Never Interventions: Alcohol Use: Audit Alcohol Screening Q2: How many drinks containing alcohol do you have on a typical day when you are drinking?: Patient does not drink Interventions: Drug Use: Drug Abuse Screening Test (DAST-10) Have you used drugs other than those required for medical reasons?: No Interventions: Review of Systems Constitutional: Negative for activity change, appetite change, chills, fever and unexpected weight change. HENT: Negative for ear pain and sore throat. Respiratory: Negative for shortness of breath. Cardiovascular: Negative for chest pain and palpitations. Gastrointestinal: Negative for abdominal pain, blood in stool, constipation and diarrhea. Genitourinary: Negative for dysuria, frequency, hematuria and urgency. Musculoskeletal: Negative for arthralgias and back pain. Skin: Negative. Neurological: Negative for weakness and numbness. Psychiatric/Behavioral: Negative for dysphoric mood. The patient is not nervous/anxious. Immunization History Administered Date(s) Administered Influenza, High Dose Seasonal, Preservative Free 06/30/2015, 06/28/2016, 06/30/2017, 06/19/2018, 06/23/2019, 06/08/2020 Influenza, Seasonal, Quadrivalent, Adjuvanted 06/28/2021, 07/03/2022 Influenza, Unspecified 07/11/2014, 06/30/2015, 06/28/2016 Influenza, seasonal, injectable 07/11/2014 Moderna SARS-CoV-2 Vaccination 01/12/2021, 02/14/2021, 09/01/2021 Pneumococcal Conjugate PCV 13 06/30/2015 Pneumococcal Conjugate PCV20, Pf (Prevnar 20) 10/30/2022 Pneumococcal Polysaccharide PPSV23 06/28/2016 Tdap 02/18/2020 Zoster, Recombinant 06/25/2019, 08/20/2019 Zoster, live 12/11/2015 Allergies Allergen Reactions Acyclovir Other reaction(s): Other/See Comments anti-ulcer medications. Misoprostol Outpatient Medications Prior to Visit Medication Sig Dispense Refill aspirin 81 MG EC tablet Take 81 mg by mouth. betamethasone valerate (Valisone) 0.1 % lotion Apply topically 2 times daily. To scalp 150 mL 1 cilostazol (Pletal) 100 MG tablet take 1 tablet by mouth every morning and 1 tablet by mouth every evening 180 tablet 1 citalopram (CeleXA) 10 MG tablet Take 1 tablet (10 mg) by mouth daily. 90 tablet 1 Hupmkgrqosj-Xdbzwydcq-Frhfxc (Trelegy Ellipta) 200-62.5-25 MCG/INH aerosol powder INHALE ONE PUFF BY MOUTH DAILY WITH GOOD ORAL CARE glimepiride (Amaryl) 2 MG tablet Take 1 tablet (2 mg) by mouth every morning (before breakfast). 90 tablet 1 metFORMIN (Glucophage) 500 MG tablet Take 1 tablet (500 mg) by mouth in the morning and 1 tablet (500 mg) in the evening. Take with meals. 180 tablet 1 pantoprazole (ProtoNix) 40 MG EC tablet take 1 tablet by mouth every morning 90 tablet 1 rosuvastatin (Crestor) 20 MG tablet Take 1 tablet (20 mg) by mouth daily. 90 tablet 1 True Metrix Blood Glucose Test test strip Test blood sugar twice a day 180 each 1 No facility-administered medications prior to visit. Past Medical History: Diagnosis Date Anxiety Cheilitis Depression DM type 2 (diabetes mellitus, type 2) ([facility]) GERD (gastroesophageal reflux disease) Hyperlipidemia Hypertension Social History Socioeconomic History Marital status: Tobacco Use Smoking status: Every Day Packs/day: 1.00 Types: Cigarettes Start date: 12/24/1954 Smokeless tobacco: Never Substance and Sexual Activity Alcohol use: No Alcohol/week: 0.0 standard drinks of alcohol Drug use: No Social Determinants of Health Financial Resource Strain: Low Risk (09/25/2022) Overall Financial Resource Strain (CARDIA) Difficulty of Paying Living Expenses: Not hard at all Food Insecurity: No Food Insecurity (09/25/2022) Hunger Vital Sign Worried About Running Out of Food in the Last Year: Never true Ran Out of Food in the Last Year: Never true Transportation Needs: No Transportation Needs (09/25/2022) PRAPARE - Transportation Lack of Transportation (Medical): No Lack of Transportation (Non-Medical): No Physical Activity: Inactive (03/28/2023) Exercise Vital Sign Days of Exercise per Week: 0 days Minutes of Exercise per Session: 0 min Housing Stability: Unknown (03/28/2023) Housing Stability Vital Sign Unable to Pay for Housing in the Last Year: No Unstable Housing in the Last Year: No Past Surgical History: Procedure Laterality Date COLONOSCOPY LUNG SURGERY 11/27/2021 Past Surgical History: Procedure Laterality Date COLONOSCOPY LUNG SURGERY 11/27/2021 Family History Problem Relation Name Age of Onset Diabetes Mother No Known Problems Father Objective BP 110/68 Pulse 92 Ht 5' 3 (1.6 m) Wt 122 lb 3.2 oz (55.4 kg) SpO2 91% BMI 21.65 kg/m Physical Exam Vitals and nursing note reviewed. Constitutional: General: He is not in acute distress. Appearance: Normal appearance. HENT: Mouth/Throat: Mouth: Mucous membranes are moist. Pharynx: Oropharynx is clear. Eyes: Extraocular Movements: Extraocular movements intact. Pupils: Pupils are equal, round, and reactive to light. Neck: Vascular: No carotid bruit. Cardiovascular: Rate and Rhythm: Normal rate and regular rhythm. Heart sounds: Murmur heard. Systolic murmur is present with a grade of 2/6. Pulmonary: Effort: Pulmonary effort is normal. Breath sounds: Normal breath sounds. Abdominal: General: Bowel sounds are normal. Palpations: Abdomen is soft. Tenderness: There is no abdominal tenderness. Musculoskeletal: General: Normal range of motion. Cervical back: Neck supple. Lymphadenopathy: Cervical: No cervical adenopathy. Skin: General: Skin is warm and dry. Neurological: General: No focal deficit present. Mental Status: He is alert and oriented to person, place, and time. Psychiatric: Mood and Affect: Mood normal. Data Reviewed Labs: Imaging/Testing: Rosa Robert MD 04/01/2023 8:56 AM documented in this encounter [facility] 03-25-2023 Note HNO ID: [id number] Author: Gretchen Escobar APRN.[employer] Service: ? Author Type: Nurse Practitioner Type: Progress Notes Filed: 03/25/2023 11:54 AM Note Text: Heart, Vascular AND Thoracic [place] Department of Thoracic Surgery TELEPHONE VISIT (audio only) PROGRESS NOTE This is a telephone encounter initiated for an established patient. The patient, parent or guardian is not originating from a related Evaluation AND Management service provided within the previous 7 days nor leading to an Evaluation AND Management service or procedure within the next 24 hours or soonest available appointment. I have communicated my name and active licensure. The patient's identity and physical location were verified at the time of this visit. Either the patient or their legal bottling equipment sales representative has been informed of the risks and benefits of -- and alternatives to -- treatment through a remote evaluation and consents to proceed with the evaluation remotely. Zenon Davidson has consented to this telephone encounter. Persons Present: patient and granddaughter Total Time Spent: 11-20 minutes Gretchen Escobar APRN.[facility] [employer] [employer] - OUTPATIENT THORACIC SURGERY CLINIC NOTE PT NAME: Zenon Pratima Davidson CLINIC NO: [id number] THORACIC SURGEON: Nicolasa Hutchinson M.D. 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 Lung, right lower lobe, wedge resection: - Adenocarcinoma (1.3 cm), acinar predominant (60%), with additional solid (20%) and micropapillary (20%) patterns (See synoptic template). - Emphysema with pigmented airspace macrophages and smoking-related interstitial fibrosis. - Parenchymal margin negative. B. Lymph node, 8R, excision: - Negative for tumor (0/1). C. Lymph node, #7, excision: - Negative for tumor (0/1). D. Lymph node, 9R, excision: - Negative for tumor (0/1). E. Lymph node, 10R, excision: - Benign fibroadipose tissue. Synoptic Report LUNG 8th Edition - Protocol posted: 04/10/2021 LUNG, RESECTION - All Specimens SPECIMEN Procedure Wedge resection Specimen Laterality Right TUMOR Tumor Focality Single focus Tumor Site Lower lobe of lung Tumor Size Total Tumor Size (size of entire tumor) Greatest Dimension (Centimeters): 1.3 cm Histologic Type Invasive acinar adenocarcinoma Histologic Patterns Present Acinar: 60 Solid: 20 Micropapillary: 20 Histologic Grade G3, poorly differentiated Spread Through Air Spaces (NISREEN) Present Visceral Pleura Invasion Not identified Direct Invasion of Adjacent Structures Not applicable (no adjacent structures present) Treatment Effect No known presurgical therapy Lymphovascular Invasion Not identified MARGINS Margin Status for Invasive Carcinoma All margins negative for invasive carcinoma Closest Margin(s) to Invasive Carcinoma Parenchymal Distance from Invasive Carcinoma to Closest Margin 0.2 cm Margin Status for Non-Invasive Tumor Not applicable REGIONAL LYMPH NODES Lymph Node(s) from Prior Procedures No known prior lymph node sampling performed Regional Lymph Node Status All regional lymph nodes negative for tumor Number of Lymph Nodes Examined 3 Joselin Site(s) Examined 8R: Para-esophageal (below demetris) 9R: Pulmonary ligament 7: Subcarinal PATHOLOGIC STAGE CLASSIFICATION (pTNM, AJCC 8th Edition) The suffix m (or a specific number) should only be used in the setting of multifocal ground-glass / lepidic nodules that histologically present as adenocarcinomas with prominent lepidic component or multifocal tumors of same histologic type that are too numerous for individual separate synoptic report and that are not better classified as intrapulmonary metastases (e.g. numerous carcinoid tumors). Multiple primary lung cancers showing different histologic type or different morphology based on comprehensive histologic subtyping are better staged as independent tumors without m suffix. pT Category pT1b pN Category pN0 ADDITIONAL FINDINGS Additional Findings Fibrosis: SRIF Emphysema Pigmented airspace macrophages (smoking-related). REASON FOR VISIT: Metastatic Surveillance HPI: Zenon Davidson is a 82 year old male with PMH of DM type 2, HLD, GERD, PAD, COPD, smoking history (65 pack per year, current one pack per day), had a newly found RLL nodule of 1.2cm which is PET positive. On 11/27/2021 patient underwent Robotic RLL wedge resection. He was discharged 11/29/21 with oxygen, 4 liters at all times REVIEW OF SYSTEMS PAIN ASSESSMENT: No pain GENERAL: No unintentional RESPIRATORY: No CARDIOVASCULAR: No chest GI: No heartburn (more content not included)... [facility] 03-25-2023 History of Present illness Narrative Heart, Vascular & Thoracic [place] Department of Thoracic Surgery TELEPHONE VISIT (audio only) PROGRESS NOTE This is a telephone encounter initiated for an established patient. The patient, parent or guardian is not originating from a related Evaluation & Management service provided within the previous 7 days nor leading to an Evaluation & Management service or procedure within the next 24 hours or soonest available appointment. I have communicated my name and active licensure. The patient's identity and physical location were verified at the time of this visit. Either the patient or their legal bottling equipment sales representative has been informed of the risks and benefits of -- and alternatives to -- treatment through a remote evaluation and consents to proceed with the evaluation remotely. Zenon Davidson has consented to this telephone encounter. Persons Present: patient and granddaughter Total Time Spent: 11-20 minutes Gretchen Escobar APRN.[facility] - OUTPATIENT THORACIC SURGERY CLINIC NOTE PT NAME: Zenon Davidson [facility] NO: [id number] THORACIC SURGEON: Nicolasa Hutchinson M.D. 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 Lung, right lower lobe, wedge resection: - Adenocarcinoma (1.3 cm), acinar predominant (60%), with additional solid (20%) and micropapillary (20%) patterns (See synoptic template). - Emphysema with pigmented airspace macrophages and smoking-related interstitial fibrosis. - Parenchymal margin negative. B. Lymph node, 8R, excision: - Negative for tumor (0/1). C. Lymph node, #7, excision: - Negative for tumor (0/1). D. Lymph node, 9R, excision: - Negative for tumor (0/1). E. Lymph node, 10R, excision: - Benign fibroadipose tissue. Synoptic Report LUNG 8th Edition - Protocol posted: 04/10/2021 LUNG, RESECTION - All Specimens SPECIMEN Procedure Wedge resection Specimen Laterality Right TUMOR Tumor Focality Single focus Tumor Site Lower lobe of lung Tumor Size Total Tumor Size (size of entire tumor) Greatest Dimension (Centimeters): 1.3 cm Histologic Type Invasive acinar adenocarcinoma Histologic Patterns Present Acinar: 60 Solid: 20 Micropapillary: 20 Histologic Grade G3, poorly differentiated Spread Through Air Spaces (NISREEN) Present Visceral Pleura Invasion Not identified Direct Invasion of Adjacent Structures Not applicable (no adjacent structures present) Treatment Effect No known presurgical therapy Lymphovascular Invasion Not identified MARGINS Margin Status for Invasive Carcinoma All margins negative for invasive carcinoma Closest Margin(s) to Invasive Carcinoma Parenchymal Distance from Invasive Carcinoma to Closest Margin 0.2 cm Margin Status for Non-Invasive Tumor Not applicable REGIONAL LYMPH NODES Lymph Node(s) from Prior Procedures No known prior lymph node sampling performed Regional Lymph Node Status All regional lymph nodes negative for tumor Number of Lymph Nodes Examined 3 Joselin Site(s) Examined 8R: Para-esophageal (below demetris) 9R: Pulmonary ligament 7: Subcarinal PATHOLOGIC STAGE CLASSIFICATION (pTNM, AJCC 8th Edition) The suffix m (or a specific number) should only be used in the setting of multifocal ground-glass / lepidic nodules that histologically present as adenocarcinomas with prominent lepidic component or multifocal tumors of same histologic type that are too numerous for individual separate synoptic report and that are not better classified as intrapulmonary metastases (e.g. numerous carcinoid tumors). Multiple primary lung cancers showing different histologic type or different morphology based on comprehensive histologic subtyping are better staged as independent tumors without m suffix. pT Category pT1b pN Category pN0 ADDITIONAL FINDINGS Additional Findings Fibrosis: SRIF Emphysema Pigmented airspace macrophages (smoking-related). REASON FOR VISIT: Metastatic Surveillance HPI: Zenon Davidson is a 82 year old male with PMH of DM type 2, HLD, GERD, PAD, COPD, smoking history (65 pack per year, current one pack per day), had a newly found RLL nodule of 1.2cm which is PET positive. On 11/27/2021 patient underwent Robotic RLL wedge resection. He was discharged 11/29/21 with oxygen, 4 liters at all times REVIEW OF SYSTEMS PAIN ASSESSMENT: No pain GENERAL: No unintentional RESPIRATORY: No CARDIOVASCULAR: No chest GI: No heartburn or reflux symptoms IMAGING/TESTS: CT Chest 03/24/2023: IMPRESSION: Continued increase in size of both individual moieties associated with a bilobed nodule in the right upper lobe, which is suspicious for progressive neoplastic etiology (likely a primary lung adenocarcinoma). Few additional sub-6 mm lung nodules remain unchanged from CT dated 11/27/2021. Suggest continued follow-up. No thoracic lymphadenopathy. Stable right lower lobe wedge resection with associated mild scarring along staple lines. Moderate to severe upper lobe predominant centrilobular and paraseptal emphysema. INTERVAL HISTORY: Zenon Davidson has a telephone visit today following a CT Chest completed locally. Denies any progressive dyspnea, cough, hemoptysis, wheezing, bone pain, weight loss. Currently smoking [address] Chest shows continued increase in size of both individual moieties associated with a bilobed nodule in the right upper lobe. Dr. Hutchinson to review images and advise on next steps. Patient does not wish for surgery. Patients states understanding and all questions were answered to satisfaction; will call if new or worsening symptoms occur or if any additional questions arise. 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 PLAN: - Dr. Hutchinson to review - Smoking cessation Gretchen Escobar APRN.[employer] documented in this encounter [facility] 03-24-2023 Note HNO ID: [id number] Author: RT Bharat(R) Service: ? Author Type: Restaurant Team Member Type: Progress Notes Filed: 03/24/2023 12:29 PM Note Text: Radiology Service Progress Note PATIENT NAME: Zenon Davidson DATE OF SERVICE: March 24, 2023 TIME: 12:29 PM PATIENT IDENTITY VERIFICATION COMPLETED USING TWO (2) IDENTIFIERS: Name and Date of confirmed by patient verbally. FALL SCREENING: Has the patient had 2 falls in the last year or 1 fall with injury or currently using an Ambulatory Assistive Device (Walker, Cane, Wheelchair, Crutches, etc.)? No PATIENT GENDER DATA: Male PATIENT RELEVANT IMPLANT DATA REVIEWED: Yes RADIOLOGY DEPARTMENT: CT; Exam(s) Completed: Chest PERIPHERAL IV DATA: Not applicable SIGNED BY: RT Garcia(R) March 24, 2023 12:[address] [facility] 02-23-2023 Telephone encounter Note Last appointment 10/10/22, Next appointment is 03/28/23 Last filled 09/04/22 #90 with 1 refill [facility] 02-23-2023 Miscellaneous Notes Last appointment 10/10/22, Next appointment is 03/28/23 Last filled 09/04/22 #90 with 1 refill documented in this encounter [facility] 12-19-2022 Note HNO ID: [id number] Author: Lawanda Lloyd APRN.[employer] Service: ? Author Type: Nurse Practitioner Type: Progress Notes Filed: 12/19/2022 4:56 PM Note Text: Heart, Vascular AND Thoracic [place] Department of Thoracic Surgery TELEPHONE VISIT PROGRESS NOTE This is a telephone encounter initiated for an established patient, parent or guardian not originating from a related Evaluation AND Management service provided within the previous 7 days nor leading to an Evaluation AND Management service or procedure within the next 24 hours or soonest available appointment. Zenon Pratima Davidson has consented to this telephone encounter. Persons Present: patient Total Time Spent: 11-20 minutes Lawanda Lloyd APRN.[employer] Part of this note was copied from previous note, all content has been individually reviewed, updated as necessary, and thoroughly reviewed. [facility] - OUTPATIENT THORACIC SURGERY CLINIC NOTE PT NAME: Zenon Davidson CLINIC NO: [id number] THORACIC SURGEON: Nicolasa Hutchinson M.D. 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 Surgical Pathology: FINAL DIAGNOSIS A. Lung, right lower lobe, wedge resection: - Adenocarcinoma (1.3 cm), acinar predominant (60%), with additional solid (20%) and micropapillary (20%) patterns (See synoptic template). - Emphysema with pigmented airspace macrophages and smoking-related interstitial fibrosis. - Parenchymal margin negative. B. Lymph node, 8R, excision: - Negative for tumor (0/1). C. Lymph node, #7, excision: - Negative for tumor (0/1). D. Lymph node, 9R, excision: - Negative for tumor (0/1). E. Lymph node, 10R, excision: - Benign fibroadipose tissue. Synoptic Report LUNG 8th Edition - Protocol posted: 04/10/2021 LUNG, RESECTION - All Specimens SPECIMEN Procedure Wedge resection Specimen Laterality Right TUMOR Tumor Focality Single focus Tumor Site Lower lobe of lung Tumor Size Total Tumor Size (size of entire tumor) Greatest Dimension (Centimeters): 1.3 cm Histologic Type Invasive acinar adenocarcinoma Histologic Patterns Present Acinar: 60 Solid: 20 Micropapillary: 20 Histologic Grade G3, poorly differentiated Spread Through Air Spaces (NISREEN) Present Visceral Pleura Invasion Not identified Direct Invasion of Adjacent Structures Not applicable (no adjacent structures present) Treatment Effect No known presurgical therapy Lymphovascular Invasion Not identified MARGINS Margin Status for Invasive Carcinoma All margins negative for invasive carcinoma Closest Margin(s) to Invasive Carcinoma Parenchymal Distance from Invasive Carcinoma to Closest Margin 0.2 cm Margin Status for Non-Invasive Tumor Not applicable REGIONAL LYMPH NODES Lymph Node(s) from Prior Procedures No known prior lymph node sampling performed Regional Lymph Node Status All regional lymph nodes negative for tumor Number of Lymph Nodes Examined 3 Joselin Site(s) Examined 8R: Para-esophageal (below demetris) 9R: Pulmonary ligament 7: Subcarinal PATHOLOGIC STAGE CLASSIFICATION (pTNM, AJCC 8th Edition) The suffix m (or a specific number) should only be used in the setting of multifocal ground-glass / lepidic nodules that histologically present as adenocarcinomas with prominent lepidic component or multifocal tumors of same histologic type that are too numerous for individual separate synoptic report and that are not better classified as intrapulmonary metastases (e.g. numerous carcinoid tumors). Multiple primary lung cancers showing different histologic type or different morphology based on comprehensive histologic subtyping are better staged as independent tumors without m suffix. pT Category pT1b pN Category pN0 ADDITIONAL FINDINGS Additional Findings Fibrosis: SRIF Emphysema Pigmented airspace macrophages (smoking-related). . REASON FOR VISIT: CT surveillance HPI: Zenon Davidson is a 82 year old male with PMH of DM type 2, HLD, GERD, PAD, COPD, smoking history (65 pack per year, current one pack per day), had a newly found RLL nodule of 1.2 cm which is PET positive. On 11/27/2021 patient underwent Robotic RLL wedge resection. He was discharged 11/29/21 with oxygen, 4 liters at all times. REVIEW OF SYSTEMS PAIN ASSESSMENT: Negative for pain, history of chronic pain, or current treatment for a chronic pain condition. GENERAL: No weight loss, malaise or fevers, finds it difficult to gain weight - taking in 1 Boost a day RESPIRATORY: Cough; productive with white sputum CARDIOVASCULAR: Negative for chest pain, leg swelling, hypertension, CHF or palpitations GI: No nausea, vomiting, or di (more content not included)... [facility] 12-19-2022 History of Present illness Narrative Heart, Vascular & Thoracic [place] Department of Thoracic Surgery TELEPHONE VISIT PROGRESS NOTE This is a telephone encounter initiated for an established patient, parent or guardian not originating from a related Evaluation & Management service provided within the previous 7 days nor leading to an Evaluation & Management service or procedure within the next 24 hours or soonest available appointment. Zenon Davidson has consented to this telephone encounter. Persons Present: patient Total Time Spent: 11-20 minutes Lawanda Lloyd APRN.[employer] Part of this note was copied from previous note, all content has been individually reviewed, updated as necessary, and thoroughly reviewed. [facility] - OUTPATIENT THORACIC SURGERY CLINIC NOTE PT NAME: Zenon Davidson CLINIC NO: [id number] THORACIC SURGEON: Nicolasa Hutchinson M.D. 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 Surgical Pathology: FINAL DIAGNOSIS A. Lung, right lower lobe, wedge resection: - Adenocarcinoma (1.3 cm), acinar predominant (60%), with additional solid (20%) and micropapillary (20%) patterns (See synoptic template). - Emphysema with pigmented airspace macrophages and smoking-related interstitial fibrosis. - Parenchymal margin negative. B. Lymph node, 8R, excision: - Negative for tumor (0/1). C. Lymph node, #7, excision: - Negative for tumor (0/1). D. Lymph node, 9R, excision: - Negative for tumor (0/1). E. Lymph node, 10R, excision: - Benign fibroadipose tissue. Synoptic Report LUNG 8th Edition - Protocol posted: 04/10/2021 LUNG, RESECTION - All Specimens SPECIMEN Procedure Wedge resection Specimen Laterality Right TUMOR Tumor Focality Single focus Tumor Site Lower lobe of lung Tumor Size Total Tumor Size (size of entire tumor) Greatest Dimension (Centimeters): 1.3 cm Histologic Type Invasive acinar adenocarcinoma Histologic Patterns Present Acinar: 60 Solid: 20 Micropapillary: 20 Histologic Grade G3, poorly differentiated Spread Through Air Spaces (NISREEN) Present Visceral Pleura Invasion Not identified Direct Invasion of Adjacent Structures Not applicable (no adjacent structures present) Treatment Effect No known presurgical therapy Lymphovascular Invasion Not identified MARGINS Margin Status for Invasive Carcinoma All margins negative for invasive carcinoma Closest Margin(s) to Invasive Carcinoma Parenchymal Distance from Invasive Carcinoma to Closest Margin 0.2 cm Margin Status for Non-Invasive Tumor Not applicable REGIONAL LYMPH NODES Lymph Node(s) from Prior Procedures No known prior lymph node sampling performed Regional Lymph Node Status All regional lymph nodes negative for tumor Number of Lymph Nodes Examined 3 Joselin Site(s) Examined 8R: Para-esophageal (below demetris) 9R: Pulmonary ligament 7: Subcarinal PATHOLOGIC STAGE CLASSIFICATION (pTNM, AJCC 8th Edition) The suffix m (or a specific number) should only be used in the setting of multifocal ground-glass / lepidic nodules that histologically present as adenocarcinomas with prominent lepidic component or multifocal tumors of same histologic type that are too numerous for individual separate synoptic report and that are not better classified as intrapulmonary metastases (e.g. numerous carcinoid tumors). Multiple primary lung cancers showing different histologic type or different morphology based on comprehensive histologic subtyping are better staged as independent tumors without m suffix. pT Category pT1b pN Category pN0 ADDITIONAL FINDINGS Additional Findings Fibrosis: SRIF Emphysema Pigmented airspace macrophages (smoking-related). . REASON FOR VISIT: CT surveillance HPI: Zenon Davidson is a 82 year old male with PMH of DM type 2, HLD, GERD, PAD, COPD, smoking history (65 pack per year, current one pack per day), had a newly found RLL nodule of 1.2 cm which is PET positive. On 11/27/2021 patient underwent Robotic RLL wedge resection. He was discharged 11/29/21 with oxygen, 4 liters at all times. REVIEW OF SYSTEMS PAIN ASSESSMENT: Negative for pain, history of chronic pain, or current treatment for a chronic pain condition. GENERAL: No weight loss, malaise or fevers, finds it difficult to gain weight - taking in 1 Boost a day RESPIRATORY: Cough; productive with white sputum CARDIOVASCULAR: Negative for chest pain, leg swelling, hypertension, CHF or palpitations GI: No nausea, vomiting, or diarrhea : No history of dysuria, frequency or incontinence CT Chest 12/18/22 IMPRESSION: 1. Status postsurgical changes of right lower lobe sublobar resection. No CT evidence of local recurrence. 2. A bilobed versus 2 adjacent pulmonary nodules in the right upper lobe is stable to slightly larger compared to prior exams, possibly neoplastic. Recommend either continued CT surveillance with chest CT or further assessment with PET/CT. 3. A few additional small (5 mm or less) pulmonary nodules are unchanged since 11/27/2021. 4. No thoracic lymphadenopathy. 5. Moderate to severe upper lobe predominant centrilobular emphysema. INTERVAL HISTORY: Zenon Davidson returns to clinic today following CT scan of the chest. He has been doing well, and denies SOB, hemoptysis, unintentional weight loss. Has a cough in the morning when he wakes up CT scan shows bilobed nodule in right upper lobe stable to slightly increased.. He will return in 3 months with a phone visit following CT scan of the chest. 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 SHANT. Bilobed nodule in right upper lobe stable to slightly increased. PLAN: - phone visit after CT scan of the chest in 3 months Lawanda Lloyd APRN.BECKI documented in this encounter [facility] 12-18-2022 Note HNO ID: [id number] Author: RT Bharat(R) Service: ? Author Type: Restaurant Team Member Type: Progress Notes Filed: 12/18/2022 1:58 PM Note Text: Radiology Service Progress Note PATIENT NAME: Zenon Davidson DATE OF SERVICE: December 18, 2022 TIME: 1:58 PM PATIENT IDENTITY VERIFICATION COMPLETED USING TWO (2) IDENTIFIERS: Name and Date of confirmed by patient verbally. FALL SCREENING: Has the patient had 2 falls in the last year or 1 fall with injury or currently using an Ambulatory Assistive Device (Walker, Cane, Wheelchair, Crutches, etc.)? No PATIENT GENDER DATA: Male PATIENT RELEVANT IMPLANT DATA REVIEWED: Yes RADIOLOGY DEPARTMENT: CT; Exam(s) Completed: Chest PERIPHERAL IV DATA: Not applicable SIGNED BY: RT Garcia(R) December 18, 2022 1:[address] [facility] 11-19-2022 Miscellaneous Notes Reason for call: PT daughter samuel called and she would like to schedule an video appointment with DR Lloyd. Contact Name Samuel daughter Home and cell number:[phone] Diagnosis:Neoplasm of lung Sandra Davalos. documented in this encounter [facility] 06-25-2022 Note HNO ID: [id number] Author: Lawanda Lloyd APRN.CNP Service: ? Author Type: Nurse Practitioner Type: Progress Notes Filed: 06/25/2022 3:16 PM Note Text: Heart, Vascular AND Thoracic [place] Department of Thoracic Surgery TELEPHONE VISIT PROGRESS NOTE This is a telephone encounter initiated for an established patient, parent or guardian not originating from a related Evaluation AND Management service provided within the previous 7 days nor leading to an Evaluation AND Management service or procedure within the next 24 hours or soonest available appointment. Zenon Davidson has consented to this telephone encounter. Persons Present: patient Total Time Spent: 11-20 minutes Lawanda Lloyd APRN.[employer]IES Part of this note was copied from previous note, all content has been individually reviewed, updated as necessary, and thoroughly reviewed. [facility] - OUTPATIENT THORACIC SURGERY CLINIC NOTE PT NAME: Zenon Davidson CLINIC NO: [id number] THORACIC SURGEON: Nicolasa Hutchinson M.D. 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 Surgical Pathology: FINAL DIAGNOSIS A. Lung, right lower lobe, wedge resection: - Adenocarcinoma (1.3 cm), acinar predominant (60%), with additional solid (20%) and micropapillary (20%) patterns (See synoptic template). - Emphysema with pigmented airspace macrophages and smoking-related interstitial fibrosis. - Parenchymal margin negative. B. Lymph node, 8R, excision: - Negative for tumor (0/1). C. Lymph node, #7, excision: - Negative for tumor (0/1). D. Lymph node, 9R, excision: - Negative for tumor (0/1). E. Lymph node, 10R, excision: - Benign fibroadipose tissue. Synoptic Report LUNG 8th Edition - Protocol posted: 04/10/2021 LUNG, RESECTION - All Specimens SPECIMEN Procedure Wedge resection Specimen Laterality Right TUMOR Tumor Focality Single focus Tumor Site Lower lobe of lung Tumor Size Total Tumor Size (size of entire tumor) Greatest Dimension (Centimeters): 1.3 cm Histologic Type Invasive acinar adenocarcinoma Histologic Patterns Present Acinar: 60 Solid: 20 Micropapillary: 20 Histologic Grade G3, poorly differentiated Spread Through Air Spaces (NISREEN) Present Visceral Pleura Invasion Not identified Direct Invasion of Adjacent Structures Not applicable (no adjacent structures present) Treatment Effect No known presurgical therapy Lymphovascular Invasion Not identified MARGINS Margin Status for Invasive Carcinoma All margins negative for invasive carcinoma Closest Margin(s) to Invasive Carcinoma Parenchymal Distance from Invasive Carcinoma to Closest Margin 0.2 cm Margin Status for Non-Invasive Tumor Not applicable REGIONAL LYMPH NODES Lymph Node(s) from Prior Procedures No known prior lymph node sampling performed Regional Lymph Node Status All regional lymph nodes negative for tumor Number of Lymph Nodes Examined 3 Joselin Site(s) Examined 8R: Para-esophageal (below demetris) 9R: Pulmonary ligament 7: Subcarinal PATHOLOGIC STAGE CLASSIFICATION (pTNM, AJCC 8th Edition) The suffix m (or a specific number) should only be used in the setting of multifocal ground-glass / lepidic nodules that histologically present as adenocarcinomas with prominent lepidic component or multifocal tumors of same histologic type that are too numerous for individual separate synoptic report and that are not better classified as intrapulmonary metastases (e.g. numerous carcinoid tumors). Multiple primary lung cancers showing different histologic type or different morphology based on comprehensive histologic subtyping are better staged as independent tumors without m suffix. pT Category pT1b pN Category pN0 ADDITIONAL FINDINGS Additional Findings Fibrosis: SRIF Emphysema Pigmented airspace macrophages (smoking-related). . REASON FOR VISIT: CT surveillance HPI: Zenon Davidson is a 81 year old male with PMH of DM type 2, HLD, GERD, PAD, COPD, smoking history (65 pack per year, current one pack per day), had a newly found RLL nodule of 1.2 cm which is PET positive. On 11/27/2021 patient underwent Robotic RLL wedge resection. He was discharged 11/29/21 with oxygen, [address] times[address] Chest 06/24/22 IMPRESSION: 1. Interval right lower lobe sublobar resection since the prior chest CT from 11/27/2021. No CT evidence of local recurrent disease. 2. A bilobed versus 2 adjacent pulmonary nodules in the right upper lobe remain unchanged since 11/27/2021 measuring up to 19 mm in diameter. Stable 6 mm left lower lobe pulmonary nodule. These nodules may be benign given stability althou (more content not included)... [facility] 06-25-2022 History of Present illness Narrative Heart, Vascular & Thoracic [place] Department of Thoracic Surgery TELEPHONE VISIT PROGRESS NOTE This is a telephone encounter initiated for an established patient, parent or guardian not originating from a related Evaluation & Management service provided within the previous 7 days nor leading to an Evaluation & Management service or procedure within the next 24 hours or soonest available appointment. Zenon Davidson has consented to this telephone encounter. Persons Present: patient Total Time Spent: 11-20 minutes Lawanda Lloyd APRN.[employer]AC[employer]IES Part of this note was copied from previous note, all content has been individually reviewed, updated as necessary, and thoroughly reviewed. [facility] - OUTPATIENT THORACIC SURGERY CLINIC NOTE PT NAME: Zenon Davidson CLINIC NO: [id number] THORACIC SURGEON: Nicolasa Hutchinson M.D. 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 Surgical Pathology: FINAL DIAGNOSIS A. Lung, right lower lobe, wedge resection: - Adenocarcinoma (1.3 cm), acinar predominant (60%), with additional solid (20%) and micropapillary (20%) patterns (See synoptic template). - Emphysema with pigmented airspace macrophages and smoking-related interstitial fibrosis. - Parenchymal margin negative. B. Lymph node, 8R, excision: - Negative for tumor (0/1). C. Lymph node, #7, excision: - Negative for tumor (0/1). D. Lymph node, 9R, excision: - Negative for tumor (0/1). E. Lymph node, 10R, excision: - Benign fibroadipose tissue. Synoptic Report LUNG 8th Edition - Protocol posted: 04/10/2021 LUNG, RESECTION - All Specimens SPECIMEN Procedure Wedge resection Specimen Laterality Right TUMOR Tumor Focality Single focus Tumor Site Lower lobe of lung Tumor Size Total Tumor Size (size of entire tumor) Greatest Dimension (Centimeters): 1.3 cm Histologic Type Invasive acinar adenocarcinoma Histologic Patterns Present Acinar: 60 Solid: 20 Micropapillary: 20 Histologic Grade G3, poorly differentiated Spread Through Air Spaces (NISREEN) Present Visceral Pleura Invasion Not identified Direct Invasion of Adjacent Structures Not applicable (no adjacent structures present) Treatment Effect No known presurgical therapy Lymphovascular Invasion Not identified MARGINS Margin Status for Invasive Carcinoma All margins negative for invasive carcinoma Closest Margin(s) to Invasive Carcinoma Parenchymal Distance from Invasive Carcinoma to Closest Margin 0.2 cm Margin Status for Non-Invasive Tumor Not applicable REGIONAL LYMPH NODES Lymph Node(s) from Prior Procedures No known prior lymph node sampling performed Regional Lymph Node Status All regional lymph nodes negative for tumor Number of Lymph Nodes Examined 3 Joselin Site(s) Examined 8R: Para-esophageal (below demetris) 9R: Pulmonary ligament 7: Subcarinal PATHOLOGIC STAGE CLASSIFICATION (pTNM, AJCC 8th Edition) The suffix m (or a specific number) should only be used in the setting of multifocal ground-glass / lepidic nodules that histologically present as adenocarcinomas with prominent lepidic component or multifocal tumors of same histologic type that are too numerous for individual separate synoptic report and that are not better classified as intrapulmonary metastases (e.g. numerous carcinoid tumors). Multiple primary lung cancers showing different histologic type or different morphology based on comprehensive histologic subtyping are better staged as independent tumors without m suffix. pT Category pT1b pN Category pN0 ADDITIONAL FINDINGS Additional Findings Fibrosis: SRIF Emphysema Pigmented airspace macrophages (smoking-related). . REASON FOR VISIT: CT surveillance HPI: Zenon Davidson is a 81 year old male with PMH of DM type 2, HLD, GERD, PAD, COPD, smoking history (65 pack per year, current one pack per day), had a newly found RLL nodule of 1.2 cm which is PET positive. On 11/27/2021 patient underwent Robotic RLL wedge resection. He was discharged 11/29/21 with oxygen, [address] times. [address] Chest 06/24/22 IMPRESSION: 1. Interval right lower lobe sublobar resection since the prior chest CT from 11/27/2021. No CT evidence of local recurrent disease. 2. A bilobed versus 2 adjacent pulmonary nodules in the right upper lobe remain unchanged since 11/27/2021 measuring up to 19 mm in diameter. Stable 6 mm left lower lobe pulmonary nodule. These nodules may be benign given stability although should be assessed on follow-up in this patient with a history of malignancy. No new or enlarging pulmonary nodule. 3. No thoracic lymphadenopathy. 4. Moderate to severe upper lobe predominant centrilobular emphysema. INTERVAL HISTORY: Zenon Davidson is phoned today following CT scan of his chest. He has been doing well, and denies chest pain, palpitations, hemoptysis, unintentional weight loss. Weight is stead at 129 lbs. He states he has a cough that is productive of clear sputum due to COPD. No worsening SOB. CT scan shows stable small bilateral nodules. No evidence of new or recurrent disease. He will return in 6 months with a phone visit following CT chest at [facility].. 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 SHANT. Stable nodules noted. PLAN: - phone visit after CT scan of the chest in 6 months Lawanda Lloyd APRN.BECKI documented in this encounter [facility] 06-24-2022 Note HNO ID: [id number] Author: RT Bharat(Hang) Service: ? Author Type: Restaurant Team Member Type: Progress Notes Filed: 06/24/2022 2:53 PM Note Text: Radiology Service Progress Note PATIENT NAME: Zenon Davidson DATE OF SERVICE: June 24, 2022 TIME: 2:53 PM PATIENT IDENTITY VERIFICATION COMPLETED USING TWO (2) IDENTIFIERS: Name and Date of confirmed by patient verbally. FALL SCREENING: Has the patient had 2 falls in the last year or 1 fall with injury or currently using an Ambulatory Assistive Device (Walker, Cane, Wheelchair, Crutches, etc.)? No PATIENT GENDER DATA: Male PATIENT RELEVANT IMPLANT DATA REVIEWED: Yes RADIOLOGY DEPARTMENT: CT; Exam(s) Completed: Chest PERIPHERAL IV DATA: Not applicable SIGNED BY: RT Garcia(R) June 24, 2022 2:[address] [facility] 06-24-2022 History of Present illness Narrative Radiology Service Progress Note PATIENT NAME: Zenon Davidson DATE OF SERVICE: June 24, 2022 TIME: 2:53 PM PATIENT IDENTITY VERIFICATION COMPLETED USING TWO (2) IDENTIFIERS: Name and Date of confirmed by patient verbally. FALL SCREENING: Has the patient had 2 falls in the last year or 1 fall with injury or currently using an Ambulatory Assistive Device (Walker, Cane, Wheelchair, Crutches, etc.)? No PATIENT GENDER DATA: Male PATIENT RELEVANT IMPLANT DATA REVIEWED: Yes RADIOLOGY DEPARTMENT: CT; Exam(s) Completed: Chest PERIPHERAL IV DATA: Not applicable SIGNED BY: RT Garcia(R) June 24, 2022 2:53 PM documented in this encounter [facility] 06-22-2022 Note HNO ID: [id number] Author: Lawanda Lloyd APRN.CNP Service: ? Author Type: Nurse Practitioner Type: Progress Notes Filed: 06/21/2022 11:02 PM Note Text: Heart, Vascular AND Thoracic [place] Department of Thoracic Surgery TELEPHONE VISIT PROGRESS NOTE This is a telephone encounter initiated for an established patient, parent or guardian not originating from a related Evaluation AND Management service provided within the previous 7 days nor leading to an Evaluation AND Management service or procedure within the next 24 hours or soonest available appointment. Zenon Davidson has consented to this telephone encounter. Persons Present: patient Total Time Spent: 5 minutes Lawanda Lloyd APRN.ATTENDANT LODGING FACILITIES Part of this note was copied from previous note, all content has been individually reviewed, updated as necessary, and thoroughly reviewed. [facility] - OUTPATIENT THORACIC SURGERY CLINIC NOTE PT NAME: Zenon Davidson CLINIC NO: [id number] THORACIC SURGEON: Nicolasa Hutchinson M.D. 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 Surgical Pathology: FINAL DIAGNOSIS A. Lung, right lower lobe, wedge resection: - Adenocarcinoma (1.3 cm), acinar predominant (60%), with additional solid (20%) and micropapillary (20%) patterns (See synoptic template). - Emphysema with pigmented airspace macrophages and smoking-related interstitial fibrosis. - Parenchymal margin negative. B. Lymph node, 8R, excision: - Negative for tumor (0/1). C. Lymph node, #7, excision: - Negative for tumor (0/1). D. Lymph node, 9R, excision: - Negative for tumor (0/1). E. Lymph node, 10R, excision: - Benign fibroadipose tissue. Synoptic Report LUNG 8th Edition - Protocol posted: 04/10/2021 LUNG, RESECTION - All Specimens SPECIMEN Procedure Wedge resection Specimen Laterality Right TUMOR Tumor Focality Single focus Tumor Site Lower lobe of lung Tumor Size Total Tumor Size (size of entire tumor) Greatest Dimension (Centimeters): 1.3 cm Histologic Type Invasive acinar adenocarcinoma Histologic Patterns Present Acinar: 60 Solid: 20 Micropapillary: 20 Histologic Grade G3, poorly differentiated Spread Through Air Spaces (NISREEN) Present Visceral Pleura Invasion Not identified Direct Invasion of Adjacent Structures Not applicable (no adjacent structures present) Treatment Effect No known presurgical therapy Lymphovascular Invasion Not identified MARGINS Margin Status for Invasive Carcinoma All margins negative for invasive carcinoma Closest Margin(s) to Invasive Carcinoma Parenchymal Distance from Invasive Carcinoma to Closest Margin 0.2 cm Margin Status for Non-Invasive Tumor Not applicable REGIONAL LYMPH NODES Lymph Node(s) from Prior Procedures No known prior lymph node sampling performed Regional Lymph Node Status All regional lymph nodes negative for tumor Number of Lymph Nodes Examined 3 Joselin Site(s) Examined 8R: Para-esophageal (below demetris) 9R: Pulmonary ligament 7: Subcarinal PATHOLOGIC STAGE CLASSIFICATION (pTNM, AJCC 8th Edition) The suffix m (or a specific number) should only be used in the setting of multifocal ground-glass / lepidic nodules that histologically present as adenocarcinomas with prominent lepidic component or multifocal tumors of same histologic type that are too numerous for individual separate synoptic report and that are not better classified as intrapulmonary metastases (e.g. numerous carcinoid tumors). Multiple primary lung cancers showing different histologic type or different morphology based on comprehensive histologic subtyping are better staged as independent tumors without m suffix. pT Category pT1b pN Category pN0 ADDITIONAL FINDINGS Additional Findings Fibrosis: SRIF Emphysema Pigmented airspace macrophages (smoking-related). . REASON FOR VISIT: CT surveillance HPI: Zenon Davidson is a 81 year old male with PMH of DM type 2, HLD, GERD, PAD, COPD, smoking history (65 pack per year, current one pack per day), had a newly found RLL nodule of 1.2cm which is PET positive. On 11/27/2021 patient underwent Robotic RLL wedge resection. He was discharged 11/29/21 with oxygen, 4 liters at all times. INTERVAL HISTORY: Zenon Davidson was scheduled for a phone visit today following local CT scan. He has not yet had the CT scan. He states it is scheduled 06/24/22 at [facility]. Will follow up next day with a phone visit. IMPRESSION: 81 year old male s/p Robotic-assisted sublobar resection of right lower lobe adenocarcinoma of lung followed by mediastinal and hilar lymph node dissection 11/27/21 by (more content not included)... [facility] 06-21-2022 History of Present illness Narrative Heart, Vascular & Thoracic [place] Department of Thoracic Surgery TELEPHONE VISIT PROGRESS NOTE This is a telephone encounter initiated for an established patient, parent or guardian not originating from a related Evaluation & Management service provided within the previous 7 days nor leading to an Evaluation & Management service or procedure within the next 24 hours or soonest available appointment. Zenon Davidson has consented to this telephone encounter. Persons Present: patient Total Time Spent: 5 minutes Lawanda Lloyd APRN.ATTENDANT LODGING FACILITIES Part of this note was copied from previous note, all content has been individually reviewed, updated as necessary, and thoroughly reviewed. [facility] - OUTPATIENT THORACIC SURGERY CLINIC NOTE PT NAME: Zenon Davidson CLINIC NO: [id number] THORACIC SURGEON: Nicolasa Hutchinson M.D. 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 Surgical Pathology: FINAL DIAGNOSIS A. Lung, right lower lobe, wedge resection: - Adenocarcinoma (1.3 cm), acinar predominant (60%), with additional solid (20%) and micropapillary (20%) patterns (See synoptic template). - Emphysema with pigmented airspace macrophages and smoking-related interstitial fibrosis. - Parenchymal margin negative. B. Lymph node, 8R, excision: - Negative for tumor (0/1). C. Lymph node, #7, excision: - Negative for tumor (0/1). D. Lymph node, 9R, excision: - Negative for tumor (0/1). E. Lymph node, 10R, excision: - Benign fibroadipose tissue. Synoptic Report LUNG 8th Edition - Protocol posted: 04/10/2021 LUNG, RESECTION - All Specimens SPECIMEN Procedure Wedge resection Specimen Laterality Right TUMOR Tumor Focality Single focus Tumor Site Lower lobe of lung Tumor Size Total Tumor Size (size of entire tumor) Greatest Dimension (Centimeters): 1.3 cm Histologic Type Invasive acinar adenocarcinoma Histologic Patterns Present Acinar: 60 Solid: 20 Micropapillary: 20 Histologic Grade G3, poorly differentiated Spread Through Air Spaces (NISREEN) Present Visceral Pleura Invasion Not identified Direct Invasion of Adjacent Structures Not applicable (no adjacent structures present) Treatment Effect No known presurgical therapy Lymphovascular Invasion Not identified MARGINS Margin Status for Invasive Carcinoma All margins negative for invasive carcinoma Closest Margin(s) to Invasive Carcinoma Parenchymal Distance from Invasive Carcinoma to Closest Margin 0.2 cm Margin Status for Non-Invasive Tumor Not applicable REGIONAL LYMPH NODES Lymph Node(s) from Prior Procedures No known prior lymph node sampling performed Regional Lymph Node Status All regional lymph nodes negative for tumor Number of Lymph Nodes Examined 3 Joselin Site(s) Examined 8R: Para-esophageal (below demetris) 9R: Pulmonary ligament 7: Subcarinal PATHOLOGIC STAGE CLASSIFICATION (pTNM, AJCC 8th Edition) The suffix m (or a specific number) should only be used in the setting of multifocal ground-glass / lepidic nodules that histologically present as adenocarcinomas with prominent lepidic component or multifocal tumors of same histologic type that are too numerous for individual separate synoptic report and that are not better classified as intrapulmonary metastases (e.g. numerous carcinoid tumors). Multiple primary lung cancers showing different histologic type or different morphology based on comprehensive histologic subtyping are better staged as independent tumors without m suffix. pT Category pT1b pN Category pN0 ADDITIONAL FINDINGS Additional Findings Fibrosis: SRIF Emphysema Pigmented airspace macrophages (smoking-related). . REASON FOR VISIT: CT surveillance HPI: Zenon Davidson is a 81 year old male with PMH of DM type 2, HLD, GERD, PAD, COPD, smoking history (65 pack per year, current one pack per day), had a newly found RLL nodule of 1.2cm which is PET positive. On 11/27/2021 patient underwent Robotic RLL wedge resection. He was discharged 11/29/21 with oxygen, 4 liters at all times. INTERVAL HISTORY: Zenon Davidson was scheduled for a phone visit today following local CT scan. He has not yet had the CT scan. He states it is scheduled 06/24/22 at [facility]. Will follow up next day with a phone visit. 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 PLAN: - phone visit after CT scan of the chest in the next week Lawanda Lloyd APRN.CNP documented in this encounter [facility] 05-30-2022 Note HNO ID: [id number] Author: Lawanda Lloyd APRN.CNP Service: ? Author Type: Nurse Practitioner Type: Progress Notes Filed: 05/31/2022 9:18 AM Note Text: Heart, Vascular AND Thoracic [place] Department of Thoracic Surgery TELEPHONE VISIT PROGRESS NOTE This is a telephone encounter initiated for an established patient, parent or guardian not originating from a related Evaluation AND Management service provided within the previous 7 days nor leading to an Evaluation AND Management service or procedure within the next 24 hours or soonest available appointment. Zenon Davidson has consented to this telephone encounter. Persons Present: patient Total Time Spent: 5 minutes Lawanda Lloyd APRN.CNP Part of this note was copied from previous note, all content has been individually reviewed, updated as necessary, and thoroughly reviewed. [facility] - OUTPATIENT THORACIC SURGERY CLINIC NOTE PT NAME: Zenon Davidson CLINIC NO: [id number] THORACIC SURGEON: Nicolasa Hutchinson M.D. 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 Surgical Pathology: FINAL DIAGNOSIS A. Lung, right lower lobe, wedge resection: - Adenocarcinoma (1.3 cm), acinar predominant (60%), with additional solid (20%) and micropapillary (20%) patterns (See synoptic template). - Emphysema with pigmented airspace macrophages and smoking-related interstitial fibrosis. - Parenchymal margin negative. B. Lymph node, 8R, excision: - Negative for tumor (0/1). C. Lymph node, #7, excision: - Negative for tumor (0/1). D. Lymph node, 9R, excision: - Negative for tumor (0/1). E. Lymph node, 10R, excision: - Benign fibroadipose tissue. Synoptic Report LUNG 8th Edition - Protocol posted: 04/10/2021 LUNG, RESECTION - All Specimens SPECIMEN Procedure Wedge resection Specimen Laterality Right TUMOR Tumor Focality Single focus Tumor Site Lower lobe of lung Tumor Size Total Tumor Size (size of entire tumor) Greatest Dimension (Centimeters): 1.3 cm Histologic Type Invasive acinar adenocarcinoma Histologic Patterns Present Acinar: 60 Solid: 20 Micropapillary: 20 Histologic Grade G3, poorly differentiated Spread Through Air Spaces (NISREEN) Present Visceral Pleura Invasion Not identified Direct Invasion of Adjacent Structures Not applicable (no adjacent structures present) Treatment Effect No known presurgical therapy Lymphovascular Invasion Not identified MARGINS Margin Status for Invasive Carcinoma All margins negative for invasive carcinoma Closest Margin(s) to Invasive Carcinoma Parenchymal Distance from Invasive Carcinoma to Closest Margin 0.2 cm Margin Status for Non-Invasive Tumor Not applicable REGIONAL LYMPH NODES Lymph Node(s) from Prior Procedures No known prior lymph node sampling performed Regional Lymph Node Status All regional lymph nodes negative for tumor Number of Lymph Nodes Examined 3 Joselin Site(s) Examined 8R: Para-esophageal (below demetris) 9R: Pulmonary ligament 7: Subcarinal PATHOLOGIC STAGE CLASSIFICATION (pTNM, AJCC 8th Edition) The suffix m (or a specific number) should only be used in the setting of multifocal ground-glass / lepidic nodules that histologically present as adenocarcinomas with prominent lepidic component or multifocal tumors of same histologic type that are too numerous for individual separate synoptic report and that are not better classified as intrapulmonary metastases (e.g. numerous carcinoid tumors). Multiple primary lung cancers showing different histologic type or different morphology based on comprehensive histologic subtyping are better staged as independent tumors without m suffix. pT Category pT1b pN Category pN0 ADDITIONAL FINDINGS Additional Findings Fibrosis: SRIF Emphysema Pigmented airspace macrophages (smoking-related). . REASON FOR VISIT: Post-operative visit HPI: Zenon Davidson is a 81 year old male with PMH of DM type 2, HLD, GERD, PAD, COPD, smoking history (65 pack per year, current one pack per day), had a newly found RLL nodule of 1.2cm which is PET positive. On 11/27/2021 patient underwent Robotic RLL wedge resection. He was discharged 11/29/21 with oxygen, 4 liters at all times. INTERVAL HISTORY: Zenon Davidson was scheduled for a phone visit today following local CT scan. he states that he was told that he did not need the scan and so did not get it. We discussed the importance of CT scan surveillance following resection for his early stage lung cancer. CT will be rescheduled and we will follow up with a phone visit. IMPRESSION: 81 year old male s/p Robotic-assisted sublobar (more content not included)... [facility] 05-23-2022 Note HNO ID: [id number] Author: Lawanda Lloyd APRN.CNP Service: ? Author Type: Nurse Practitioner Type: Progress Notes Filed: 05/23/2022 11:17 AM Note Text: Heart, Vascular AND Thoracic [place] Department of Thoracic Surgery TELEPHONE VISIT PROGRESS NOTE This is a telephone encounter initiated for an established patient, parent or guardian not originating from a related Evaluation AND Management service provided within the previous 7 days nor leading to an Evaluation AND Management service or procedure within the next 24 hours or soonest available appointment. Zenon Davidson has consented to this telephone encounter. Persons Present: patient Total Time Spent: 5 minutes Lawanda Lloyd APRN.ATTENDANT LODGING FACILITIES Part of this note was copied from previous note, all content has been individually reviewed, updated as necessary, and thoroughly reviewed. [facility] - OUTPATIENT THORACIC SURGERY CLINIC NOTE PT NAME: Zenon Davidson CLINIC NO: [id number] THORACIC SURGEON: Nicolasa Hutchinson M.D. 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 Surgical Pathology: FINAL DIAGNOSIS A. Lung, right lower lobe, wedge resection: - Adenocarcinoma (1.3 cm), acinar predominant (60%), with additional solid (20%) and micropapillary (20%) patterns (See synoptic template). - Emphysema with pigmented airspace macrophages and smoking-related interstitial fibrosis. - Parenchymal margin negative. B. Lymph node, 8R, excision: - Negative for tumor (0/1). C. Lymph node, #7, excision: - Negative for tumor (0/1). D. Lymph node, 9R, excision: - Negative for tumor (0/1). E. Lymph node, 10R, excision: - Benign fibroadipose tissue. Synoptic Report LUNG 8th Edition - Protocol posted: 04/10/2021 LUNG, RESECTION - All Specimens SPECIMEN Procedure Wedge resection Specimen Laterality Right TUMOR Tumor Focality Single focus Tumor Site Lower lobe of lung Tumor Size Total Tumor Size (size of entire tumor) Greatest Dimension (Centimeters): 1.3 cm Histologic Type Invasive acinar adenocarcinoma Histologic Patterns Present Acinar: 60 Solid: 20 Micropapillary: 20 Histologic Grade G3, poorly differentiated Spread Through Air Spaces (NISREEN) Present Visceral Pleura Invasion Not identified Direct Invasion of Adjacent Structures Not applicable (no adjacent structures present) Treatment Effect No known presurgical therapy Lymphovascular Invasion Not identified MARGINS Margin Status for Invasive Carcinoma All margins negative for invasive carcinoma Closest Margin(s) to Invasive Carcinoma Parenchymal Distance from Invasive Carcinoma to Closest Margin 0.2 cm Margin Status for Non-Invasive Tumor Not applicable REGIONAL LYMPH NODES Lymph Node(s) from Prior Procedures No known prior lymph node sampling performed Regional Lymph Node Status All regional lymph nodes negative for tumor Number of Lymph Nodes Examined 3 Joselin Site(s) Examined 8R: Para-esophageal (below demetris) 9R: Pulmonary ligament 7: Subcarinal PATHOLOGIC STAGE CLASSIFICATION (pTNM, AJCC 8th Edition) The suffix m (or a specific number) should only be used in the setting of multifocal ground-glass / lepidic nodules that histologically present as adenocarcinomas with prominent lepidic component or multifocal tumors of same histologic type that are too numerous for individual separate synoptic report and that are not better classified as intrapulmonary metastases (e.g. numerous carcinoid tumors). Multiple primary lung cancers showing different histologic type or different morphology based on comprehensive histologic subtyping are better staged as independent tumors without m suffix. pT Category pT1b pN Category pN0 ADDITIONAL FINDINGS Additional Findings Fibrosis: SRIF Emphysema Pigmented airspace macrophages (smoking-related). . REASON FOR VISIT: Post-operative visit HPI: Zenon Davidson is a 81 year old male with PMH of DM type 2, HLD, GERD, PAD, COPD, smoking history (65 pack per year, current one pack per day), had a newly found RLL nodule of 1.2cm which is PET positive. On 11/27/2021 patient underwent Robotic RLL wedge resection. He was discharged 11/29/21 with oxygen, 4 liters at all times. INTERVAL HISTORY: Zenon Davidson was scheduled for a phone visit today following local CT scan. he states that he was told that he did not need the scan and so did not get it. We discussed the importance of CT scan surveillance following resection for his early stage lung cancer. CT will be rescheduled and we will follow up with a phone visit. IMPRESSION: 81 year old male s/p Robotic-assisted sublobar (more content not included)... [facility] 05-23-2022 History of Present illness Narrative [facility] [place] Department of Thoracic Surgery TELEPHONE VISIT PROGRESS NOTE This is a telephone encounter initiated for an established patient, parent or guardian not originating from a related Evaluation & Management service provided within the previous 7 days nor leading to an Evaluation & Management service or procedure within the next 24 hours or soonest available appointment. Zenon Davidson has consented to this telephone encounter. Persons Present: patient Total Time Spent: 5 minutes Lawanda Lloyd APRN.ATTENDANT [employer]IES Part of this note was copied from previous note, all content has been individually reviewed, updated as necessary, and thoroughly reviewed. [facility] - OUTPATIENT THORACIC SURGERY CLINIC NOTE PT NAME: Zenon Davidson CLINIC NO: [id number] THORACIC SURGEON: Nicolasa Hutchinson M.D. 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 Surgical Pathology: FINAL DIAGNOSIS A. Lung, right lower lobe, wedge resection: - Adenocarcinoma (1.3 cm), acinar predominant (60%), with additional solid (20%) and micropapillary (20%) patterns (See synoptic template). - Emphysema with pigmented airspace macrophages and smoking-related interstitial fibrosis. - Parenchymal margin negative. B. Lymph node, 8R, excision: - Negative for tumor (0/1). C. Lymph node, #7, excision: - Negative for tumor (0/1). D. Lymph node, 9R, excision: - Negative for tumor (0/1). E. Lymph node, 10R, excision: - Benign fibroadipose tissue. Synoptic Report LUNG 8th Edition - Protocol posted: 04/10/2021 LUNG, RESECTION - All Specimens SPECIMEN Procedure Wedge resection Specimen Laterality Right TUMOR Tumor Focality Single focus Tumor Site Lower lobe of lung Tumor Size Total Tumor Size (size of entire tumor) Greatest Dimension (Centimeters): 1.3 cm Histologic Type Invasive acinar adenocarcinoma Histologic Patterns Present Acinar: 60 Solid: 20 Micropapillary: 20 Histologic Grade G3, poorly differentiated Spread Through Air Spaces (NISREEN) Present Visceral Pleura Invasion Not identified Direct Invasion of Adjacent Structures Not applicable (no adjacent structures present) Treatment Effect No known presurgical therapy Lymphovascular Invasion Not identified MARGINS Margin Status for Invasive Carcinoma All margins negative for invasive carcinoma Closest Margin(s) to Invasive Carcinoma Parenchymal Distance from Invasive Carcinoma to Closest Margin 0.2 cm Margin Status for Non-Invasive Tumor Not applicable REGIONAL LYMPH NODES Lymph Node(s) from Prior Procedures No known prior lymph node sampling performed Regional Lymph Node Status All regional lymph nodes negative for tumor Number of Lymph Nodes Examined 3 Joselin Site(s) Examined 8R: Para-esophageal (below demetris) 9R: Pulmonary ligament 7: Subcarinal PATHOLOGIC STAGE CLASSIFICATION (pTNM, AJCC 8th Edition) The suffix m (or a specific number) should only be used in the setting of multifocal ground-glass / lepidic nodules that histologically present as adenocarcinomas with prominent lepidic component or multifocal tumors of same histologic type that are too numerous for individual separate synoptic report and that are not better classified as intrapulmonary metastases (e.g. numerous carcinoid tumors). Multiple primary lung cancers showing different histologic type or different morphology based on comprehensive histologic subtyping are better staged as independent tumors without m suffix. pT Category pT1b pN Category pN0 ADDITIONAL FINDINGS Additional Findings Fibrosis: SRIF Emphysema Pigmented airspace macrophages (smoking-related). . REASON FOR VISIT: Post-operative visit HPI: Zenon Davidson is a 81 year old male with PMH of DM type 2, HLD, GERD, PAD, COPD, smoking history (65 pack per year, current one pack per day), had a newly found RLL nodule of 1.2cm which is PET positive. On 11/27/2021 patient underwent Robotic RLL wedge resection. He was discharged 11/29/21 with oxygen, 4 liters at all times. INTERVAL HISTORY: Zenon Davidson was scheduled for a phone visit today following local CT scan. he states that he was told that he did not need the scan and so did not get it. We discussed the importance of CT scan surveillance following resection for his early stage lung cancer. CT will be rescheduled and we will follow up with a phone visit. 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 Polyps can grow in many places, including the large intestine (colon). A polyp may be a round bump or a mushroom-shaped growth. You could have one polyp or several. Most colon polyps are noncancerous (benign). However, some colon polyps can become cancerous over time. Finding and removing the polyps early can help prevent this. What are the causes? The exact cause of colon polyps is not known. What increases the risk? You are more likely to develop this condition if you: Have a family history of colon cancer or colon polyps. Are older than 50 or older than 45 if you are . Have inflammatory bowel disease, such as ulcerative colitis or Crohn's disease. Have certain hereditary conditions, such as: ?Familial adenomatous polyposis. ?Weaver syndrome. ?Turcot syndrome. ?Peutz Jeghers syndrome. Are overweight. Smoke cigarettes. Do not get enough exercise. Drink too much alcohol. Eat a diet that is high in fat and red meat and low in fiber. Had childhood cancer that was treated with abdominal radiation. What are the signs or symptoms? Most polyps do not cause symptoms. If you have symptoms, they may include: Blood coming from your rectum when having a bowel movement. Blood in your stool. The stool may look dark red or black. Abdominal pain. A change in bowel habits, such as constipation or diarrhea. How is this diagnosed? This condition is diagnosed with a colonoscopy. This is a procedure in which a lighted, flexible scope is inserted into the anus and then passed into the colon to examine the area. Polyps are sometimes found when a colonoscopy is done as part of routine cancer screening tests. How is this treated? Treatment for this condition involves removing any polyps that are found. Most polyps can be removed during a colonoscopy. Those polyps will then be tested for cancer. Additional treatment may be needed depending on the results of testing. Follow these instructions at home: Lifestyle Maintain a healthy weight, or lose weight if recommended by your health care provider. Exercise every day or as told by your health care provider. Do not use any products that contain nicotine or tobacco, such as cigarettes and e-cigarettes. If you need help quitting, ask your health care provider. If you drink alcohol, limit how much you have: ?0 1 drink a day for women. ? 0 2 drinks a day for men. Be aware of how much alcohol is in your drink. In the [place] one drink equals one 12 oz bottle of beer (355 mL), one 5 oz glass of wine (148 mL), or one 1 oz shot of hard liquor (44 mL). Eating and drinking Eat foods that are high in fiber, such as fruits, vegetables, and whole grains. Eat foods that are high in calcium and vitamin D, such as milk, cheese, yogurt, eggs, liver, fish, and broccoli. Limit foods that are high in fat, such as fried foods and desserts. Limit the amount of red meat and processed meat you eat, such as hot dogs, sausage, haddad, and lunch meats. General instructions Keep all follow-up visits as told by your health care provider. This is important. ?This includes having regularly scheduled colonoscopies. ?Talk to your health care provider about when you need a colonoscopy. Contact a health care provider if: You have new or worsening bleeding during a bowel movement. You have new or increased blood in your stool. You have a change in bowel habits. You lose weight for no known reason. Summary Polyps are tissue growths inside the body. Polyps can grow in many places, including the colon. Most colon polyps are noncancerous (benign), but some can become cancerous over time. This condition is diagnosed with a colonoscopy. Treatment for this condition involves removing any polyps that are found. Most polyps can be removed during a colonoscopy. This information is not intended to replace advice given to you by your health care provider. Make sure you discuss any questions you have with your health care provider. Document Released: 05/28/2005 Document Revised: 12/17/2018 Document Reviewed: 12/17/2018 [employer] Patient Education 2020 [employer]. 03/25/2022 10:49:47 Monitored Anesthesia Care, Care After Monitored Anesthesia Care, Care After These instructions provide you with information about caring for yourself after your procedure. Your health care provider may also give you more specific instructions. Your treatment has been planned according to current medical practices, but problems sometimes occur. Call your health care provider if you have any problems or questions after your procedure. What can I expect after the procedure? After your procedure, you may: Feel sleepy for several hours. Feel clumsy and have poor balance for several hours. Feel forgetful about what happened after the procedure. Have poor judgment for several hours. Feel nauseous or vomit. Have a sore throat if you had a breathing tube during the procedure. Follow these instructions at home: For at least 24 hours after the procedure: Have a responsible adult stay with you. It is important to have someone help care for you until you are awake and alert. Rest as needed. Do not: ?Participate in activities in which you could fall or become injured. ?Drive. ?Use heavy machinery. ?Drink alcohol. ?Take sleeping pills or medicines that cause drowsiness. ?Make important decisions or sign legal documents. ?Take care of children on your own. Eating and drinking Follow the diet that is recommended by your health care provider. If you vomit, drink water, juice, or soup when you can drink without vomiting. Make sure you have little or no nausea before eating solid foods. General instructions Take htqt-qdi-jxtndrx and prescription medicines only as told by your health care provider. If you have sleep apnea, surgery and certain medicines can increase your risk for breathing problems. Follow instructions from your health care provider about wearing your sleep device: ?Anytime you are sleeping, including during daytime naps. ?While taking prescription pain medicines, sleeping medicines, or medicines that make you drowsy. If you smoke, do not smoke without supervision. Keep all follow-up visits as told by your health care provider. This is important. Contact a health care provider if: You keep feeling nauseous or you keep vomiting. You feel light-headed. You develop a rash. You have a fever. Get help right away if: You have trouble breathing. Summary For several hours after your procedure, you may feel sleepy and have poor judgment. Have a responsible adult stay with you for at least 24 hours or until you are awake and alert. This information is not intended to replace advice given to you by your health care provider. Make sure you discuss any questions you have with your health care provider. Document Released: 12/22/2016 Document Revised: 11/30/2018 Document Reviewed: 12/22/2016 [employer] Patient Education 2020 [employer] 03/25/2022 10:49:47 Colonoscopy, Adult, Care After, [id number] Colonoscopy, Adult, Care After This sheet gives you information about how to care for yourself after your procedure. Your doctor may also give you more specific instructions. If you have problems or questions, call your doctor. What can I expect after the procedure? After the procedure, it is common to have: A small amount of blood in your poop for 24 hours. Some gas. Mild cramping or bloating in your belly. Follow these instructions at home: General instructions For the first 24 hours after the procedure: ?Do not drive or use machinery. ?Do not sign important documents. ?Do not drink alcohol. ?Do your daily activities more slowly than normal. ?Eat foods that are soft and easy to digest. Take hrvh-evh-hvosoui or prescription medicines only as told by your doctor. To help cramping and bloating: Try walking around. Put heat on your belly (abdomen) as told by your doctor. Use a heat source that your doctor recommends, such as a moist heat pack or a heating pad. ?Put a towel between your skin and the heat source. ?Leave the heat on for 20 30 minutes. ?Remove the heat if your skin turns bright red. This is especially important if you cannot feel pain, heat, or cold. You can get burned. Eating and drinking Drink enough fluid to keep your pee (urine) clear or pale yellow. Return to your normal diet as told by your doctor. Avoid heavy or fried foods that are hard to digest. Avoid drinking alcohol for as long as told by your doctor. Contact a doctor if: You have blood in your poop (stool) 2 3 days after the procedure. Get help right away if: You have more than a small amount of blood in your poop. You see large clumps of tissue (blood clots) in your poop. Your belly is swollen. You feel sick to your stomach (nauseous). You throw up (vomit). You have a fever. You have belly pain that gets worse, and medicine does not help your pain. Summary After the procedure, it is common to have a small amount of blood in your poop. You may also have mild cramping and bloating in your belly. For the first 24 hours after the procedure, do not drive or use machinery, do not sign important documents, and do not drink alcohol. Get help right away if you have a lot of blood in your poop, feel sick to your stomach, have a fever, or have more belly pain. This information is not intended to replace advice given to you by your health care provider. Make sure you discuss any questions you have with your health care provider. Document Released: 10/04/2011 Document Revised: 07/02/2018 Document Reviewed: 05/26/2017 [employer] Patient Education 2020 [employer] Follow Up Care 03/13/2022 07:41:27 With:EFREN NIETO MD Address: [address] [facility] [address] [place] [phone] When: Unknown Comments:tylenol only for 5 days, office will call with specimen results and any follow up if needed [facility] Jaime 03-25-2022 Summary of episode note Discharge Instructions Thank you for allowing [facility] to assist you with your healthcare needs. The following is important discharge information regarding your hospital visit. Your Care Team YESICA LOTT, ROSA Your Diagnosis Cancer of lung Diabetes Diarrhea Emphysema of lung Gastroesophageal reflux disease Loss of weight What to do next Follow Up Appointments Follow Up with EFREN NIETO MD When Why: tylenol only for 5 days, office will call with specimen results and any follow up if needed Where: [address] [facility] [address] [place], [place] [phone] The Following Activity and Diet Have Been Ordered for You No qualifying data available. No qualifying data available. The Following Equipment Has Been Ordered for You No qualifying data available. The Following Treatments Have Been Ordered for You Discharge Labs No qualifying data available. Discharge Radiology No qualifying data available. Other Therapies No qualifying data available. Post Acute Orders No qualifying data available. Someone Will Contact You Regarding These Home Health Referrals No home referrals have been ordered for you. No one will call you. Allergies Antispasmodic Cytotec anticholinergics unknown patient unresponsive (Other/See Comments) Medications Please ask your primary doctor or pharmacist before taking any other medication not listed, including over the counter drugs, herbal medications, vitamins and or supplements as they may interact with your home medications. What How Much When Instructions Last Dose Unchanged cilostazol (cilostazol 100 mg oral tablet) 1 tab(s) by mouth Two (2) times daily before meals Unchanged citalopram (citalopram 10 mg oral tablet) 1 tab(s) by mouth Every day Unchanged fluticasone/ umeclidinium/ vilanterol (Trelegy Ellipta 200 mcg-62.5 mcg-25 mcg/ inh inhalation powder) 1 puff(s) by inhalation Once a day at the same time every day Unchanged glimepiride (glimepiride 2 mg oral tablet) 1 tab(s) by mouth Once a day with a meal Unchanged pantoprazole (pantoprazole 40 mg oral enteric coated tablet) 1 tab(s) by mouth Once a day before a meal Unchanged rosuvastatin (rosuvastatin 20 mg oral tablet) 1 tab(s) by mouth Every day Please take this list to your next doctor s visit. Bring all medications you take, including over the counter medications, herbals and other supplements with you to your doctor s visit. Patients and families are reminded to discard old lists and to update any records with all medication providers or retail pharmacies. Education Materials Colon Polyps Polyps are tissue growths inside the body. Polyps can grow in many places, including the large intestine (colon). A polyp may be a round bump or a mushroom-shaped growth. You could have one polyp or several. Most colon polyps are noncancerous (benign). However, some colon polyps can become cancerous over time. Finding and removing the polyps early can help prevent this. What are the causes? The exact cause of colon polyps is not known. What increases the risk? You are more likely to develop this condition if you: Have a family history of colon cancer or colon polyps. Are older than 50 or older than 45 if you are . Have inflammatory bowel disease, such as ulcerative colitis or Crohn's disease. Have certain hereditary conditions, such as: ? Familial adenomatous polyposis. ? Weaver syndrome. ? Turcot syndrome. ? Peutz Jeghers syndrome. Are overweight. Smoke cigarettes. Do not get enough exercise. Drink too much alcohol. Eat a diet that is high in fat and red meat and low in fiber. Had childhood cancer that was treated with abdominal radiation. What are the signs or symptoms? Most polyps do not cause symptoms. If you have symptoms, they may include: Blood coming from your rectum when having a bowel movement. Blood in your stool. The stool may look dark red or black. Abdominal pain. A change in bowel habits, such as constipation or diarrhea. How is this diagnosed? This condition is diagnosed with a colonoscopy. This is a procedure in which a lighted, flexible scope is inserted into the anus and then passed into the colon to examine the area. Polyps are sometimes found when a colonoscopy is done as part of routine cancer screening tests. How is this treated? Treatment for this condition involves removing any polyps that are found. Most polyps can be removed during a colonoscopy. Those polyps will then be tested for cancer. Additional treatment may be needed depending on the results of testing. Follow these instructions at home: Lifestyle Maintain a healthy weight, or lose weight if recommended by your health care provider. Exercise every day or as told by your health care provider. Do not use any products that contain nicotine or tobacco, such as cigarettes and e-cigarettes. If you need help quitting, ask your health care provider. If you drink alcohol, limit how much you have: ? 0 1 drink a day for women. ? 0 2 drinks a day for men. Be aware of how much alcohol is in your drink. In the [place] one drink equals one 12 oz bottle of beer (355 mL), one 5 oz glass of wine (148 mL), or one 1 oz shot of hard liquor (44 mL). Eating and drinking Eat foods that are high in fiber, such as fruits, vegetables, and whole grains. Eat foods that are high in calcium and vitamin D, such as milk, cheese, yogurt, eggs, liver, fish, and broccoli. Limit foods that are high in fat, such as fried foods and desserts. Limit the amount of red meat and processed meat you eat, such as hot dogs, sausage, haddad, and lunch meats. General instructions Keep all follow-up visits as told by your health care provider. This is important. ? This includes having regularly scheduled colonoscopies. ? Talk to your health care provider about when you need a colonoscopy. Contact a health care provider if: You have new or worsening bleeding during a bowel movement. You have new or increased blood in your stool. You have a change in bowel habits. You lose weight for no known reason. Summary Polyps are tissue growths inside the body. Polyps can grow in many places, including the colon. Most colon polyps are noncancerous (benign), but some can become cancerous over time. This condition is diagnosed with a colonoscopy. Treatment for this condition involves removing any polyps that are found. Most polyps can be removed during a colonoscopy. This information is not intended to replace advice given to you by your health care provider. Make sure you discuss any questions you have with your health care provider. Document Released: 05/28/2005 Document Revised: 12/17/2018 Document Reviewed: 12/17/2018 [employer] Patient Education 2020 [employer] Monitored Anesthesia Care, Care After These instructions provide you with information about caring for yourself after your procedure. Your health care provider may also give you more specific instructions. Your treatment has been planned according to current medical practices, but problems sometimes occur. Call your health care provider if you have any problems or questions after your procedure. What can I expect after the procedure? After your procedure, you may: Feel sleepy for several hours. Feel clumsy and have poor balance for several hours. Feel forgetful about what happened after the procedure. Have poor judgment for several hours. Feel nauseous or vomit. Have a sore throat if you had a breathing tube during the procedure. Follow these instructions at home: For at least 24 hours after the procedure: Have a responsible adult stay with you. It is important to have someone help care for you until you are awake and alert. Rest as needed. Do not: ? Participate in activities in which you could fall or become injured. ? Drive. ? Use heavy machinery. ? Drink alcohol. ? Take sleeping pills or medicines that cause drowsiness. ? Make important decisions or sign legal documents. ? Take care of children on your own. Eating and drinking Follow the diet that is recommended by your health care provider. If you vomit, drink water, juice, or soup when you can drink without vomiting. Make sure you have little or no nausea before eating solid foods. General instructions Take hvcy-drm-grdfgmi and prescription medicines only as told by your health care provider. If you have sleep apnea, surgery and certain medicines can increase your risk for breathing problems. Follow instructions from your health care provider about wearing your sleep device: ? Anytime you are sleeping, including during daytime naps. ? While taking prescription pain medicines, sleeping medicines, or medicines that make you drowsy. If you smoke, do not smoke without supervision. Keep all follow-up visits as told by your health care provider. This is important. Contact a health care provider if: You keep feeling nauseous or you keep vomiting. You feel light-headed. You develop a rash. You have a fever. Get help right away if: You have trouble breathing. Summary For several hours after your procedure, you may feel sleepy and have poor judgment. Have a responsible adult stay with you for at least 24 hours or until you are awake and alert. This information is not intended to replace advice given to you by your health care provider. Make sure you discuss any questions you have with your health care provider. Document Released: 12/22/2016 Document Revised: 11/30/2018 Document Reviewed: 12/22/2016 [employer] Patient Education 2020 [employer]. Colonoscopy, Adult, Care After This sheet gives you information about how to care for yourself after your procedure. Your doctor may also give you more specific instructions. If you have problems or questions, call your doctor. What can I expect after the procedure? After the procedure, it is common to have: A small amount of blood in your poop for 24 hours. Some gas. Mild cramping or bloating in your belly. Follow these instructions at home: General instructions For the first 24 hours after the procedure: ? Do not drive or use machinery. ? Do not sign important documents. ? Do not drink alcohol. ? Do your daily activities more slowly than normal. ? Eat foods that are soft and easy to digest. Take pbmy-fym-tkvmlgs or prescription medicines only as told by your doctor. To help cramping and bloating: Try walking around. Put heat on your belly (abdomen) as told by your doctor. Use a heat source that your doctor recommends, such as a moist heat pack or a heating pad. ? Put a towel between your skin and the heat source. ? Leave the heat on for 20 30 minutes. ? Remove the heat if your skin turns bright red. This is especially important if you cannot feel pain, heat, or cold. You can get burned. Eating and drinking Drink enough fluid to keep your pee (urine) clear or pale yellow. Return to your normal diet as told by your doctor. Avoid heavy or fried foods that are hard to digest. Avoid drinking alcohol for as long as told by your doctor. Contact a doctor if: You have blood in your poop (stool) 2 3 days after the procedure. Get help right away if: You have more than a small amount of blood in your poop. You see large clumps of tissue (blood clots) in your poop. Your belly is swollen. You feel sick to your stomach (nauseous). You throw up (vomit). You have a fever. You have belly pain that gets worse, and medicine does not help your pain. Summary After the procedure, it is common to have a small amount of blood in your poop. You may also have mild cramping and bloating in your belly. For the first 24 hours after the procedure, do not drive or use machinery, do not sign important documents, and do not drink alcohol. Get help right away if you have a lot of blood in your poop, feel sick to your stomach, have a fever, or have more belly pain. This information is not intended to replace advice given to you by your health care provider. Make sure you discuss any questions you have with your health care provider. Document Released: 10/04/2011 Document Revised: 07/02/2018 Document Reviewed: 05/26/2017 [employer] Patient Education 2020 [employer] Additional Information VACCINATE! IT SAVES LIVES! Members of the community who have not yet received the COVID-19 vaccine and would like to receive it can visit one of [facility] vaccine clinics. There are many vaccine clinic locations within the [facility]. For locations and available times, please visit [email or web address].[place].gov/. It is important to note that some COVID mobile vaccine clinics are held outdoors and may be canceled in rainy or stormy conditions. To learn more about pediatric vaccinations (ages 5-11), we invite you to visit the [facility] webpage. https://www.[email or web address].org/pag es/5248-Qwlxs-Fdedvspuldo-Frequent ku-Vzfso-Jpskqlbbk.html To learn more about the COVID-19 vaccine, we invite you to visit the [facility] website for a list of frequently asked questions. [email or web address].[employer]/assets/Patient x-lqz-Hebyvkmz/yvcvs-Cynelsm-Jdyiz ently_Asked-Questions.pdf [facility] [employer] Patient Portal Access Instructions: Stay connected with your healthcare team and access your personal medical information anytime with the [facility] Patient Portal.If you would like a full copy of your medical records, please contact the [facility] Medical Records Department, Friday through Friday between 8a.m. and 4:30p.m. Please follow the directions below to access the portal: 1.Access the email account you provided upon registration to the [facility].2.Look for an invitation email from [facility].3.Open the email and access the invitation link: Accept Invitation to [facility].Fill in the required siddiqui to create your account. Sign into www.[employer] with your username and password that you created in the above steps to stay up to date. You can then view a summary of results, a summary of your visits, and the ability to download your summaries to your computer or send the information securely to a physician. Remember that your healthcare information is confidential, so carefully consider who you will allow to register on the [facility] Patient Portal for access to your information. You can also access the [facility] Patient Portal on the [employer]. Simply click on Health Records under Health Data and then click on the [employer] logo. HOW TO SAFELY DISPOSE OF PRESCRIPTION MEDICATIONS Please use one of the following methods to safely dispose of your unused medications. 1.Use a drug disposal kit: the drug disposal pouch allows you to safely discard your old and unused drugs. Ask your nurse to give you one when you are discharged.2.Visit a local take-back location: Many local pharmacies and police departments have programs that collect old and unwanted prescription drugs. Call your local pharmacy or go to http://[employer].com.[employer]/1B4Qc3k to find one close to you.3.Make use of household items: Use cat litter or old coffee grounds to dispose medications if other options are not available. Mix your drugs with these household products, seal them in an airtight container and throw it into the garbage. Call [facility]: [phone] to be sure your drugs can be disposed of in this way. Some medicines may require a different approach.4.Never flush your medications down the toilet. IF YOU HAVE BEEN PRESCRIBED AN OPIOID FOR PAIN If you have been prescribed an opioid (such as hydrocodone, oxycodone or morphine), it is critical to understand the possible side effects and risks of opioid pain medications. Even when taken as directed, opioids can have several side effects including: Tolerance, meaning you might need to take more of a medication for the same pain relief. Nausea, vomiting and/or constipation. Sleepiness, dizziness, dry mouth, confusion, depression or itching. Physical dependence, meaning you have withdrawal symptoms when a medication is stopped, can develop within a few days. KNOW YOUR RESPONSIBILITIES It is important to know exactly how much and how often to take the opioid pain medications you are prescribed. Never take opioids in higher amounts or more often than prescribed. Do not combine opioids with alcohol or other drugs that cause drowsiness, such as benzodiazepines, also known as benzos, including diazepam and alprazolam, muscle relaxants or sleep aids. Never sell or share prescription opioids. This is illegal. Store opioids in a secure place and out of reach of others (including children, family, friends and visitors). The last page of this document has been signed and retained as a CHART COPY. Signatures Patient Education Materials Colon Polyps Monitored Anesthesia Care, Care After Colonoscopy, Adult, Care After, Jhau-je-Yyqa Medication Leaflets My discharge plan and instructions have been reviewed and explained to me and I,ZENON DAVIDSON understand my current condition and have read and understand these discharge instructions. I have received a written copy of the plan/instructions. If I have questions, I am aware that I should contact my doctor. 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: Date/Time: Relationship to Patient: ___ Witness Name/Signature: Date/Time: [facility] 03-25-2022 Anesthesiology Consult note Patient: DAVIDSON ZENON Andujar Age: 81 years Sex: Male : 1940 Associated Diagnoses: None Author: CECILE CHAIREZ APRN-PVC MONITOR Assessment Postanesthesia assessment Vitals: Vital signs from flowsheet : Vital Signs 03/25/2022 10:30 EDT Heart Rate Monitored 79 bpm bpm Respiratory Rate 21 br/min br/min Systolic Blood Pressure NBP 119 mmHg mmHg Diastolic Blood Pressure NBP 61 mmHg mmHg 03/25/2022 10:25 EDT Heart Rate Monitored 79 bpm bpm Respiratory Rate 28 br/min br/min Systolic Blood Pressure NBP 125 mmHg mmHg Diastolic Blood Pressure NBP 58 mmHg mmHg 03/25/2022 10:20 EDT Heart Rate Monitored 84 bpm bpm Respiratory Rate 17 br/min br/min Systolic Blood Pressure NBP 111 mmHg mmHg Diastolic Blood Pressure NBP 64 mmHg mmHg 03/25/2022 10:15 EDT Heart Rate Monitored 85 bpm bpm Respiratory Rate 6 br/min br/min Systolic Blood Pressure NBP 129 mmHg mmHg Diastolic Blood Pressure NBP 64 mmHg mmHg 03/25/2022 10:11 EDT Systolic Blood Pressure NBP 159 mmHg mmHg Diastolic Blood Pressure NBP 78 mmHg mmHg 03/25/2022 10:10 EDT Heart Rate Monitored 80 bpm bpm 03/25/2022 8:42 EDT Temperature Temporal Artery 36.0 DegC Peripheral Pulse Rate 94 bpm Respiratory Rate 16 br/min Systolic Blood Pressure 153 mmHg HI Diastolic Blood Pressure 79 mmHg . Mental status: at preoperative baseline. Respiratory function: lungs are clear to auscultation, respirations are non-labored. Respiratory support: none. CV function: Normal rate, Regular rhythm. Cardiovascular support: none. Pain: Self-reports no pain, Post op control No intervention needed. Nausea status: denies nausea. Postoperative hydration status: within normal limits. Digitally Signed by CECILE CHAIREZ on 03/25/2022 10:35 AM [facility] 03-25-2022 Anesthesiology Consult note Patient: ZENON DAVIDSON Age: 81 years Sex: Male : 1940 Associated Diagnoses: None Author: CECILE CHAIREZ Preoperative Information Anesthesia history Patient's history: negative. Family's history: negative. Health Status Allergies: Allergic Reactions (Selected) Severity Not Documented Anticholinergics- No reactions were documented. Antispasmodic- No reactions were documented. Cytotec- No reactions were documented. Unknown patient unresponsive- Other/see comments., Allergies (4) ActiveReaction anticholinergicsNone Documented AntispasmodicNone Documented CytotecNone Documented unknown patient unresponsiveOther/See Comments Current medications: (Selected) Inpatient Medications Ordered Lactated Ringers Infusion 1,000 mL: 50 mL/hr, Intravenous Documented Medications Documented Trelegy Ellipta 200 mcg-62.5 mcg-25 mcg/inh inhalation powder: 1 puff(s), Inhalation, qDay, at the same time every day, 0 Refill(s) cilostazol 100 mg oral tablet: 100 mg, 1 tab(s), Oral, BIDAC, 180 tab(s), 0 Refill(s) citalopram 10 mg oral tablet: 10 mg, 1 tab(s), Oral, Daily, 90 tab(s), 0 Refill(s) glimepiride 2 mg oral tablet: 2 mg, 1 tab(s), Oral, qDayM, 90 tab(s), 0 Refill(s) pantoprazole 40 mg oral enteric coated tablet: 40 mg, 1 tab(s), Oral, qDayAC, 90 tab(s), 0 Refill(s) rosuvastatin 20 mg oral tablet: 20 mg, 1 tab(s), Oral, Daily, 90 tab(s), 0 Refill(s), Medications (1) Active Scheduled: (0) Continuous: (1) Lactated Ringers 1,000 mL 1,000 mL, Intravenous, 50 mL/hr PRN: (0) Problem list: Active Problems (6) Diabetes Diarrhea Gastroesophageal reflux disease Lung cancer Smoker Weight loss Histories Past Medical History: No active or resolved past medical history items have been selected or recorded. Family History: No family history items have been selected or recorded. Procedure history: Lung operation ([id number]). Social History Social & Psychosocial Habits No Data Available . Physical Examination Vital Signs 03/25/2022 8:42 EDT Temperature Temporal Artery 36.0 DegC Peripheral Pulse Rate 94 bpm Respiratory Rate 16 br/min Systolic Blood Pressure 153 mmHg HI Diastolic Blood Pressure 79 mmHg Vital Signs(last 24 hrs) Last Charted Resp Rate 16 br/min (MAR 25 08:42) BMI23.09 (MAR 25 08:42) Measurements from flowsheet : Measurements 03/25/2022 8:42 EDT Height 160 cm Height in inches 63 inch(es) Admission Weight 59.1 kg Weight Lbs 130 lb Weight Method Stated [facility] Body Weight 56.88 kg BSA Admission 1.61 Body Mass Index 23.09 kg/m2 Pain assessment: Pain Assessment 03/25/2022 8:42 EDT Primary Pain Intensity 0 Pain Scale Type 0-10 Pain scale . General: Alert and oriented. Airway: Normal temporomandibular joint mobility. Mallampati classification: II (soft palate, fauces, uvula visible). Dentition Evaluation: Dentures, lower, Dentures, upper. Respiratory: Lungs are clear to auscultation, Respirations are non-labored. Cardiovascular: Normal rate, Regular rhythm. Neurologic: Alert, Oriented. Review / Management Results review: No qualifying data available , Lab results 03/25/2022 9:26 EDT Blood Glucose, Capillary 154 mg/dL HI 03/25/2022 9:25 EDT Hand Right 03/25/2022 20 gauge Peripheral IV Activity: Insert new site Peripheral IV Dressing Condition: Clean, Dry, Intact Peripheral IV Dressing Activity: Applied, Transparent dressing Peripheral IV Line Status/Patency: Flushes easily Peripheral IV Site Condition: No complications Peripheral IV Equipment: Extension set 03/25/2022 8:42 EDT Designated Person #1 We May Share DON Garcia [phone] POA Designated Person #1 Relationship Daughter Height 160 cm Height in inches 63 inch(es) Admission Weight 59.1 kg Weight Lbs 130 lb Weight Method Stated [facility] Body Weight 56.88 kg BSA Admission 1.61 Body Mass Index 23.09 kg/m2 Temperature Temporal Artery 36.0 DegC Peripheral Pulse Rate 94 bpm Respiratory Rate 16 br/min Systolic Blood Pressure 153 mmHg HI Diastolic Blood Pressure 79 mmHg Primary Pain Intensity 0 Pain Scale Type 0-10 Pain scale Heart Rhythm Regular Oxygen Therapy Room air Oxygen Saturation 92 % LOW Status N/A Sensory Deficits None Advanced Directives Yes Advance Directive Location Patient instructed to bring in copy Infectious Disease Symptoms Patient states no symptoms Infectious Disease Recent Exposure No Alcohol and Drug Use No Employee of Institutional Living No Health Care Employee No History of Exposure to TB No History of Positive Chest X-Ray for TB No History of Positive TB Skin Test No Homeless No Known Immunosuppression No Recent Immigrant No Resident of Institutional Living No Bloody Sputum No Fatigue No Fever No Loss of Appetite No Night Sweats No Persistent Cough > 3 Weeks No Weight Loss No Arrival Mode Ambulatory Position HOB elevated Glasses No Dentures Lower, Upper Accompanied By On Arrival Family GI Prep Suprep GI Prep Completed Yes GI Prep Results Yellow Barriers to Learning None evident Teaching Method Explanation, Printed materials Preferred Written Language Bahraini Preferred Spoken Language Bahraini Information Given by Patient Patient's Current Physicians YesicaAravind Mitchell Discharge To, Anticipated Home independently Activity Status ADL Awake Standard Safety ID band on, Allergy Band on, Call device within reach, Bed in low position, Wheels locked, Upper/Half-Length side-rails up, Safety level maintained, Non-Slip footwear Prev Test Positive/Diagnosis w/COVID-19 No Current Quarantine/Isolated any Illness No Any Contact with Sick Animals/Birds No Traveled Anywhere in Last 30 Days No N/A Personal Devices, Patient Valuables Dentures, lower, Dentures, upper, Hearing aid, left, Hearing aid, right Admission Note-Nursing Procedure/Therapy Intake . Assessment and Plan [place] Society of Anesthesiologists (ASA) physical status classification: Class III. Anesthetic Preoperative Plan Anesthetic technique: MAC. Postoperative pain management: Per surgeon. Risks discussed: nausea, vomiting, hypotension, allergic reaction, serious complications. Informed consent: signed by patient. Digitally Signed by CECILE CHAIREZ on 03/25/2022 10:06 AM [facility] 01-18-2022 History of Present illness Narrative Images from the original note were not included. Part of this note was copied from previous note, all content has been individually reviewed, updated as necessary, and thoroughly reviewed. [facility] - OUTPATIENT THORACIC SURGERY CLINIC NOTE PT NAME: Zenon Andujar [facility] NO: [id number] THORACIC SURGEON: Nicolasa Hutchinson M.D. 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 Surgical Pathology: FINAL DIAGNOSIS A. Lung, right lower lobe, wedge resection: - Adenocarcinoma (1.3 cm), acinar predominant (60%), with additional solid (20%) and micropapillary (20%) patterns (See synoptic template). - Emphysema with pigmented airspace macrophages and smoking-related interstitial fibrosis. - Parenchymal margin negative. B. Lymph node, 8R, excision: - Negative for tumor (0/1). C. Lymph node, #7, excision: - Negative for tumor (0/1). D. Lymph node, 9R, excision: - Negative for tumor (0/1). E. Lymph node, 10R, excision: - Benign fibroadipose tissue. Synoptic Report LUNG 8th Edition - Protocol posted: 04/10/2021 LUNG, RESECTION - All Specimens SPECIMEN Procedure Wedge resection Specimen Laterality Right TUMOR Tumor Focality Single focus Tumor Site Lower lobe of lung Tumor Size Total Tumor Size (size of entire tumor) Greatest Dimension (Centimeters): 1.3 cm Histologic Type Invasive acinar adenocarcinoma Histologic Patterns Present Acinar: 60 Solid: 20 Micropapillary: 20 Histologic Grade G3, poorly differentiated Spread Through Air Spaces (NISREEN) Present Visceral Pleura Invasion Not identified Direct Invasion of Adjacent Structures Not applicable (no adjacent structures present) Treatment Effect No known presurgical therapy Lymphovascular Invasion Not identified MARGINS Margin Status for Invasive Carcinoma All margins negative for invasive carcinoma Closest Margin(s) to Invasive Carcinoma Parenchymal Distance from Invasive Carcinoma to Closest Margin 0.2 cm Margin Status for Non-Invasive Tumor Not applicable REGIONAL LYMPH NODES Lymph Node(s) from Prior Procedures No known prior lymph node sampling performed Regional Lymph Node Status All regional lymph nodes negative for tumor Number of Lymph Nodes Examined 3 Joselin Site(s) Examined 8R: Para-esophageal (below demetris) 9R: Pulmonary ligament 7: Subcarinal PATHOLOGIC STAGE CLASSIFICATION (pTNM, AJCC 8th Edition) The suffix m (or a specific number) should only be used in the setting of multifocal ground-glass / lepidic nodules that histologically present as adenocarcinomas with prominent lepidic component or multifocal tumors of same histologic type that are too numerous for individual separate synoptic report and that are not better classified as intrapulmonary metastases (e.g. numerous carcinoid tumors). Multiple primary lung cancers showing different histologic type or different morphology based on comprehensive histologic subtyping are better staged as independent tumors without m suffix. pT Category pT1b pN Category pN0 ADDITIONAL FINDINGS Additional Findings Fibrosis: SRIF Emphysema Pigmented airspace macrophages (smoking-related). . REASON FOR VISIT: Post-operative visit HPI: Zenon Davidson is a 81 year old male with PMH of DM type 2, HLD, GERD, PAD, COPD, smoking history (65 pack per year, current one pack per day), had a newly found RLL nodule of 1.2cm which is PET positive. On 11/27/2021 patient underwent Robotic RLL wedge resection. He was discharged 11/29/21 with oxygen, 4 liters at all times. PHYSICAL EXAM: VITAL SIGNS: BP 138/64 Pulse 80 Temp 36.7 C (98 F) (Oral) Ht 159 cm (5' 2.6 ) Wt 58.2 kg (128 lb 3.2 oz) SpO2 100% BMI 23.00 kg/m 4 liters NC Incision location: Right Thoracoport sites and Right Old chest tube sites Incision Assessment: Well approximated and no drainage, swelling, erythema or warmth Drain/Tubes: N/A GENERAL no acute distress alert and oriented x3 HEENT normocephalic, head midline, oral mucous membranes moist HEART regular rate and rhythm S1-S2 normal, no murmur LUNGS faint expiratory wheeze in upper lung siddiqui ABDOMEN soft nontender, nondistended. Bowel sounds active x 4 quadrants EXTREMITIES no clubbing, cyanosis or edema MUSCULOSKELETAL gait within normal limits SKIN no rashes or petechiae IMAGING/TESTS: CXR 01/18/2022: PENDING INTERVAL HISTORY: Zenon Davidson returns for post op visit. He has been doing well. He denies any pain at his incision sites, but did experience neuralgia to his right anterior chest. This appears to be receding. Incisions are healing well. He continues to use oxygen at 4 liters. He states he may go for a few minutes on room air, but then notes his oxygen saturation will decrease to the high 80s and he will replace the oxygen. He is placed on room air and after 15 minutes his saturation went to 92%. Attempted to walk on room air. After 1 minute his saturation went to 89% and we replaced the oxygen. He may decrease to 2 liters per NC. 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 Otherwise, he has been eating well. Denies fever or chills. Moving bowels with the use of Metamucil every 2-3 days. CXR shows well expanded lungs. He will return in [address] scan. He wishes to get the CT in [place] and have a a virtual visit the next day. 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 FALL SCREENING: Has the patient had 2 falls in the last year or 1 fall with injury or currently using an Ambulatory Assistive Device (Walker, Cane, Wheelchair, Crutches, etc.)? No PATIENT GENDER DATA: Male PATIENT RELEVANT IMPLANT DATA REVIEWED: Not Applicable RADIOLOGY DEPARTMENT: General X-ray: Exam(s) Completed: Chest X-Ray PERIPHERAL IV DATA: Not applicable SIGNED BY: RT Kin(Hang) January 18, 2022 10:56 AM documented in this encounter [facility] 12-07-2021 History of Present illness Narrative Radiology Service Progress Note PATIENT NAME: Zenon Davidson DATE OF SERVICE: December 07, 2021 TIME: 12:40 PM PATIENT IDENTITY VERIFICATION COMPLETED USING TWO (2) IDENTIFIERS: Name and Date of confirmed by patient verbally. FALL SCREENING: Has the patient had 2 falls in the last year or 1 fall with injury or currently using an Ambulatory Assistive Device (Walker, Cane, Wheelchair, Crutches, etc.)? No PATIENT GENDER DATA: Male PATIENT RELEVANT IMPLANT DATA REVIEWED: Not Applicable RADIOLOGY DEPARTMENT: General X-ray: Exam(s) Completed: Chest X-Ray PERIPHERAL IV DATA: Not applicable SIGNED BY: RT Herminia(Hang) December 07, 2021 12:40 PM documented in this encounter [facility] 12-07-2021 Instructions Lawanda Lloyd APRN.CNP - 12/07/2021 12:39 PM EDT SURVIVORSHIP PLANNING: Lung Cancer Stage 1A2 Surveillance [address] Chest every 6 Month for 2 years; then annually for 3 years to begin in May 2022. Please arrange with local physician if unable to return to [facility]. Please call office with any new clinical symptoms. documented in this encounter [facility] 12-07-2021 History of Present illness Narrative Images from the original note were not included. [facility] - OUTPATIENT THORACIC SURGERY CLINIC NOTE PT NAME: Zenon Davidson [facility] NO: [id number] THORACIC SURGEON: Nicolasa Hutchinson M.D. 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 Surgical Pathology: FINAL DIAGNOSIS A. Lung, right lower lobe, wedge resection: - Adenocarcinoma (1.3 cm), acinar predominant (60%), with additional solid (20%) and micropapillary (20%) patterns (See synoptic template). - Emphysema with pigmented airspace macrophages and smoking-related interstitial fibrosis. - Parenchymal margin negative. B. Lymph node, 8R, excision: - Negative for tumor (0/1). C. Lymph node, #7, excision: - Negative for tumor (0/1). D. Lymph node, 9R, excision: - Negative for tumor (0/1). E. Lymph node, 10R, excision: - Benign fibroadipose tissue. Synoptic Report LUNG 8th Edition - Protocol posted: 04/10/2021 LUNG, RESECTION - All Specimens SPECIMEN Procedure Wedge resection Specimen Laterality Right TUMOR Tumor Focality Single focus Tumor Site Lower lobe of lung Tumor Size Total Tumor Size (size of entire tumor) Greatest Dimension (Centimeters): 1.3 cm Histologic Type Invasive acinar adenocarcinoma Histologic Patterns Present Acinar: 60 Solid: 20 Micropapillary: 20 Histologic Grade G3, poorly differentiated Spread Through Air Spaces (NISREEN) Present Visceral Pleura Invasion Not identified Direct Invasion of Adjacent Structures Not applicable (no adjacent structures present) Treatment Effect No known presurgical therapy Lymphovascular Invasion Not identified MARGINS Margin Status for Invasive Carcinoma All margins negative for invasive carcinoma Closest Margin(s) to Invasive Carcinoma Parenchymal Distance from Invasive Carcinoma to Closest Margin 0.2 cm Margin Status for Non-Invasive Tumor Not applicable REGIONAL LYMPH NODES Lymph Node(s) from Prior Procedures No known prior lymph node sampling performed Regional Lymph Node Status All regional lymph nodes negative for tumor Number of Lymph Nodes Examined 3 Joselin Site(s) Examined 8R: Para-esophageal (below demetris) 9R: Pulmonary ligament 7: Subcarinal PATHOLOGIC STAGE CLASSIFICATION (pTNM, AJCC 8th Edition) The suffix m (or a specific number) should only be used in the setting of multifocal ground-glass / lepidic nodules that histologically present as adenocarcinomas with prominent lepidic component or multifocal tumors of same histologic type that are too numerous for individual separate synoptic report and that are not better classified as intrapulmonary metastases (e.g. numerous carcinoid tumors). Multiple primary lung cancers showing different histologic type or different morphology based on comprehensive histologic subtyping are better staged as independent tumors without m suffix. pT Category pT1b pN Category pN0 ADDITIONAL FINDINGS Additional Findings Fibrosis: SRIF Emphysema Pigmented airspace macrophages (smoking-related). . REASON FOR VISIT: First post-operative visit HPI: Zenon Davidson is a 81 year old male with PMH of DM type 2, HLD, GERD, PAD, COPD, smoking history (65 pack per year, current one pack per day), had a newly found RLL nodule of 1.2cm which is PET positive. On 11/27/2021 patient underwent Robotic RLL wedge resection. He was discharged 11/29/21 with oxygen, 4 liters at all times. PHYSICAL EXAM: VITAL SIGNS: BP 115/58 Pulse 98 Temp 36.8 C (98.2 F) (Oral) Resp 12 Ht 159 cm (5' 2.6 ) Wt 59.9 kg (132 lb) SpO2 99% BMI 23.68 kg/m 4 liters NC Incision location: Right Thoracoport sites and Right Old chest tube sites Incision Assessment: Well approximated and no drainage, swelling, erythema or warmth Drain/Tubes: N/A GENERAL: well appearing, alert, no acute distress, well-hydrated, well nourished HEENT: normocephalic, midline, anicteric sclera. LUNGS: clear to auscultation, no wheezing or rhonchi HEART: RRR without murmur ABDOMEN: Soft, non-tender, non distended. No masses EXTREMITIES: No clubbing, cyanosis or edema. MUSCULOSKELETAL: Muscular strength intact. SKIN: turgor normal, no suspicious rashes or lesions NEURO: Gait normal. Sensation grossly intact. IMAGING/TESTS: CXR 12/07/21: PENDING INTERVAL HISTORY: Zenon Davidson returns for first post op visit. He has been doing well. He has had adequate pain management off all pain medication. He denies any SOB and has been using oxygen at 4 liters per NC. States dizziness that he was experiencing prior to surgery has resolved. He denies fevers, chills. No c/o nausea or vomiting. He has been tolerating diet and has been moving his bowels regularly. Admits that bowels have been loose historically. May try adding Metamucil to regimen to help bulk stool. Incisions are healing well and sutures are removed. We have discussed increasing aerobic activity daily, as well as maintaining weight restriction of 5-10 lbs for the first month after surgery. He states he has only been using his vibrapep once a day. Discussed importance of using hourly if possible. CXR shows well expanded lungs. 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 Survivorship planning is discussed. He does not need adjuvant therapy, and will have surveillance CT scans every 6 months for the next 2 years, then every year thereafter for 3 years. Copy of pathology given.. He will return in 6 weeks with a CXR. 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 PLAN: - return in 6 weeks with CXR - desat at next visit Lawanda Lloyd APRN.BECKI documented in this encounter [facility]* Diagnosis Follow-up examination following surgery Follow-up examination, following unspecified surgery [facility]* Diagnosis Malignant neoplasm of unspecified part of unspecified bronchus or lung (HCC)- Primary Hypoxemia [facility]* Diagnosis Malignant neoplasm of lower lobe of right lung (HCC) documented in this encounter [facility] note* Diagnosis Malignant neoplasm of lower lobe of right lung (HCC)- Primary documented in this encounter [facility] note* Diagnosis Malignant neoplasm of lower lobe of right lung (HCC)- Primary documented in this encounter [facility] note* Diagnosis Malignant neoplasm of unspecified part of unspecified bronchus or lung (HCC) documented in this encounter [facility] note* Diagnosis Neoplasm of lung- Primary Neoplasm of unspecified nature of respiratory system documented in this encounter [facility] note* Diagnosis Neoplasm of lung- Primary Neoplasm of unspecified nature of respiratory system PAD (peripheral artery disease) (HCC) Peripheral vascular disease, unspecified documented in this encounter [facility] note* Diagnosis Malignant neoplasm of unspecified part of unspecified bronchus or lung (HCC)- Primary Lung nodule Solitary pulmonary nodule Smoking Tobacco use disorder documented in this encounter [facility] note* Diagnosis Medicare annual wellness visit, subsequent- Primary Malignant neoplasm of lower respiratory tract (HCC) Panlobular emphysema (HCC) Other emphysema Peripheral vascular disease due to secondary diabetes (HCC) Secondary diabetes mellitus with peripheral circulatory disorders, not stated as uncontrolled, or unspecified Gastroesophageal reflux disease without esophagitis Esophageal reflux Uncontrolled type 2 diabetes mellitus with hyperglycemia (HCC) Anxiety Anxiety state, unspecified Recurrent major depressive disorder, in full remission (HCC) Pure hypercholesterolemia [facility]* Diagnosis Medicare annual wellness visit, subsequent- Primary Malignant neoplasm of lower respiratory tract (HCC) Panlobular emphysema (HCC) Other emphysema Gastroesophageal reflux disease without esophagitis Esophageal reflux Uncontrolled type 2 diabetes mellitus with hyperglycemia (HCC) Anxiety Anxiety state, unspecified Recurrent major depressive disorder, in full remission (HCC) Pure hypercholesterolemia documented in this encounter [facility] note* Diagnosis Hyperlipidemia, unspecified hyperlipidemia type [facility] Diagnosis Type 2 diabetes mellitus without complication, without long-term current use of insulin (CMS/HCC) (HCC) [facility]* Diagnosis Hyperlipidemia, unspecified hyperlipidemia type [facility]* Diagnosis Uncontrolled type 2 diabetes mellitus with hyperglycemia (HCC)- Primary Panlobular emphysema (HCC) Other emphysema Restless leg syndrome Restless legs syndrome (RLS) Pure hypercholesterolemia Anxiety Anxiety state, unspecified Recurrent major depressive disorder, in full remission (HCC) Fecal soiling [facility] Narrative No data available for this section [facility] Reason for Referral Status Reason Specialty Diagnoses / Procedures Referre d By Contact Referred To Contact Open Radiology Diagnoses Aspiration into airway, initial encounter Procedures FL MODIFIED BARIUM SWALLOW W Rosa Ledezma MD [address] [place] [address], [place] [address] Specialty Diagnoses / Procedures Referred By Contac t Referred To Contact CT IMAGING Diagnoses Malignant neoplasm of unspecified part of unspecified bronchus or lung (HCC) Procedures CT CHEST WO IVCON DIAGNOSTIC COMPUTED TOMOGRAPHY THORAX W/O CET Lawanda Lloyd, MACHINE SPRING [employer] [address] [place] [address] Ct Imaging Referral ID Status Reason Start Date Expiration Date Visits Requested Visits Authorized [id number] Authorized Auto-Generat ed Referral 01/18/2022 02/17/2023 1 1 Referral ID Status Reason Start Date Expiration Date V isits Requested Visits Authorized [id number] Closed Auto-Generate d Referral 01/18/2022 02/17/2023 1 1 Specialty Diagnoses / Procedures Referred By Contac t Referred To Contact CT IMAGING Diagnoses Neoplasm of lung Procedures CT CHEST WO IVCON DIAGNOSTIC COMPUTED TOMOGRAPHY THORAX W/O CNTRST Lawanda Lloyd, MACHINE [employer]ING [employer] [address] [place] [address] Ct Imaging Referral ID Status Reason Start Date Expiration Date Visits Requested Visits Authorized [id number] Pending Review Auto-Generat ed Referral 2 07/25/2023 1 1 Referral ID Status Reason Start Date Expiration Date Visits Requested Visits Authorized [id number] Pending Review Auto-Generat ed Referral 12/19/2022 01/18/2024 1 1 History of Present Illness * Dayana Adam SLP - 09/11/2020 1:00 PM EST Speech Language Pathology A Modified Barium Swallow Study (MBSS) evaluation was completed. The full Speech Pathology report is located under the Chart Review section of [facility]. Click on the Procedure tab to locate the Speech Pathologist MBSS results and recommendations titled CLINICAL DOCUMENTATION CLERK video swallow on this date. Dayana Adam M.A. 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 Advance Directive(s) 10/29/2021 1:25 PM Summary Purpose Family History No Family History Records FoundNo Family History Records FoundNo Family History Records FoundNo Family History Records Found Additional Source Comments (unrecognized sect ion and content) No Status Records FoundNo Status Records FoundNo Status Records FoundNo Status Records Found INFORMATION SOURCE (unrecogn ized section and content) DATE CREATED AUTHOR AUTHOR'S ORGANIZ ATION 04/22/2022 [facility] DATE CREATED AUTHOR AUTHOR'S ORGANIZ ATION 04/01/[address] [facility] DATE CREATED AUTHOR AUTHOR'S ORGANIZ ATION 10/02/2023 [facility] Source Comments (unrecognize d section and content) In the event this informatio n is protected by the Federal Confidentiality of Alcohol and Drug Abuse Patient Records regulations: The Federal rules restrict any use of the information to criminally investigate or prosecute any alcohol or drug abuse patient.[facility] the event this information is protected by the Federal Confidentiality of Alcohol and Drug Abuse Patient Records regulations: The Federal rules restrict any use of the information to criminally investigate or prosecute any alcohol or drug abuse patient.[facility] the event this information is protected by the Federal Confidentiality of Alcohol and Drug Abuse Patient Records regulations: The Federal rules restrict any use of the information to criminally investigate or prosecute any alcohol or drug abuse patient.[facility] the event this information is protected by the Federal Confidentiality of Alcohol and Drug Abuse Patient Records regulations: The Federal rules restrict any use of the information to criminally investigate or prosecute any alcohol or drug abuse patient.[facility] the event this information is protected by the Federal Confidentiality of Alcohol and Drug Abuse Patient Records regulations: The Federal rules restrict any use of the information to criminally investigate or prosecute any alcohol or drug abuse patient.[facility] the event this information is protected by the Federal Confidentiality of Alcohol and Drug Abuse Patient Records regulations: The Federal rules restrict any use of the information to criminally investigate or prosecute any alcohol or drug abuse patient.[facility] the event this information is protected by the Federal Confidentiality of Alcohol and Drug Abuse Patient Records regulations: The Federal rules restrict any use of the information to criminally investigate or prosecute any alcohol or drug abuse patient.[facility] the event this information is protected by the Federal Confidentiality of Alcohol and Drug Abuse Patient Records regulations: The Federal rules restrict any use of the information to criminally investigate or prosecute any alcohol or drug abuse patient.[facility] the event this information is protected by the Federal Confidentiality of Alcohol and Drug Abuse Patient Records regulations: The Federal rules restrict any use of the information to criminally investigate or prosecute any alcohol or drug abuse patient.[facility] the event this information is protected by the Federal Confidentiality of Alcohol and Drug Abuse Patient Records regulations: The Federal rules restrict any use of the information to criminally investigate or prosecute any alcohol or drug abuse patient.[facility] the event this information is protected by the Federal Confidentiality of Alcohol and Drug Abuse Patient Records regulations: The Federal rules restrict any use of the information to criminally investigate or prosecute any alcohol or drug abuse patient.[facility] the event this information is protected by the Federal Confidentiality of Alcohol and Drug Abuse Patient Records regulations: The Federal rules restrict any use of the information to criminally investigate or prosecute any alcohol or drug abuse patient.[facility] Reason for Visit (unrecogniz ed section and content) Reason Comments Radio Main J1 Reason Comments Follow Up Reason Comments Radiology CT Specialty Diagnoses / Procedures Referred By Martha t Referred To Contact CT IMAGING Diagnoses Malignant neoplasm of unspecified part of unspecified bronchus or lung (HCC) Procedures CT CHEST WO IVCON DIAGNOSTIC COMPUTED TOMOGRAPHY THORAX W/O CNTRST Lawanda Lloyd, MACHINE [employer]ING [employer] [address] [place] [address] Ct Imaging Referral ID Status Reason Start Date Expiration Date V isits Requested Visits Authorized [id number] Closed Auto-Generate d Referral 01/18/2022 02/17/2023 1 1 Reason Comments Follow Up Reason Comments Appointment Reason Comments Med Refill Reason Comments Lung Cancer Results - Ct Reason Comments Medicare Annual Wellness Visit Subsequen t Blood Work Reason Comments Technical Services 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 - Other Appointment Patient Update Reason Onset Date Comments Med Refill 04/16/2023 Reason Onset Date Comments Med Refill 08/25/2023 Reason Comments Restless Legs Anxiety Depression Hyperlipidemia GERD Diabetes Medication Check 6 month Health Maintenance Rsv vaccine- not don e4th covid- has had 3 Care Teams (unrecognized sec tion and content) Serging Machine Operator Automatic Relationship Specialty Start Date End Date Rosa Robert [address] [place] [address] PCP - General Family Practice 10/29/21 Jose Pritchard V [address] [place] [phone] Referring Internal Medicine 10/02/21 Serging Machine Operator Automatic Relationship Specialty Start Date End Date Rosa Robert [address] [place] [address] PCP - General Family Practice 10/29/21 Jose Pritchard V [address] [place] [phone] Referring Internal Medicine 10/02/21 Serging Machine Operator Automatic Relationship Specialty Start Date End Date Rosa Robert [address] [place] [address] PCP - General Family Practice 10/29/21 Jose Pritchard V [address] [place] [address] Referring Internal Medicine 10/02/21 Serging Machine Operator Automatic Relationship Specialty Start Date End Date Rosa Robert [address] [place] [address] PCP - General Family Medicine 10/29/21 Jose Pritchard V [address] [place] [address] Referring Internal Medicine 10/02/21 Serging Machine Operator Automatic Relationship Specialty Start Date End Date Rosa Robert [address] [place] [address] PCP - General Family Medicine 10/29/21 Jose Pritchard V [address] [place] [address] Referring Internal Medicine 10/02/21 Serging Machine Operator Automatic Relationship Specialty Start Date End Date Rosa Robert [address] [place] [address] PCP - General Family Medicine 10/29/21 Jose Pritchard V [address] [place] [address] Referring Internal Medicine 10/02/21 Serging Machine Operator Automatic Relationship Specialty Start Date End Date Rosa Robert [address] [place] [address] PCP - General Family Medicine 10/29/21 Jose Pritchard V [address] [place] [address] Referring Internal Medicine 10/02/21 Serging Machine Operator Automatic Relationship Specialty Start Date End Date Rosa Robert [address] [place], [place] [id number] PCP - General Family Medicine 10/29/21 Jose Pritchard V [address] [facility] [facility] [phone] Referring Internal Medicine 10/02/21 Serging Machine Operator Automatic Relationship Specialty Start Date End Date Rosa Robert MD [address] [place], [place] [id number] PCP - General 02/13/19 Serging Machine Operator Automatic Relationship Specialty Start Date End Date Rosa Robert [address] [place] [address] PCP - General Family Medicine 10/29/21 Jose Pritchard V [address] [facility] [address] [address] [place] [phone] Referring Internal Medicine 10/02/21 Serging Machine Operator Automatic Relationship Specialty Start Date End Date Rosa Robert MD [address] [place] [address] PCP - General 02/13/19 Serging Machine Operator Automatic Relationship Specialty Start Date End Date Rosa Robert [address] [facility] [place] [id number] PCP - General Family Medicine 10/29/21 Jose Pritchard V [address] [place] [phone] Referring Internal Medicine 10/02/21 Serging Machine Operator Automatic Relationship Specialty Start Date End Date Rosa Robert MD [address] [place] [address] PCP - General 02/13/19 Serging Machine Operator Automatic Relationship Specialty Start Date End Date Rosa Robert MD [address] [place] [address] PCP - General 02/13/19 Serging Machine Operator Automatic Relationship Specialty Start Date [place] [address] PCP - General 02/13/19 Serging Machine Operator Automatic Relationship Specialty Start Date End Date Rosa Robert MD [address] [place] [address] PCP - General 02/13/19 Serging Machine Operator Automatic Relationship Specialty Start Date End Date Rosa Robert MD [address] [place] [address] PCP - General 02/13/19 Serging Machine Operator Automatic Relationship Specialty Start Date End Date Rosa Robert MD [address] [place] [address] PCP - General 02/13/19 Care Team (unrecognized sect ion and content) Care Team Personnel Name: ROSA ROBERT MD [facility] Service: Family Practice Member Role: Primary Care Physician Address: Address: [address] [place] [address] Care Team Related Persons Name: MADDY GARCIA FOR RECORDS PERTAINING TO PATIENTS WHO ARE OR HAVE BEEN ENROLLED IN A CHEMICAL DEPENDENCY/SUBSTANCEABUSE PROGRAM, SOME INFORMATION MAY BE OMITTED. This clinical summary was aggregated from multiple sources. Caution should be exercised in using it in the provision of clinical care. This summary normalizes information from multiple sources, and as a consequence, information in this document may materially change the coding, format and clinical context of patient data. In addition, data may be omitted in some cases. CLINICAL DECISIONS SHOULD BE BASED ON THE PRIMARY CLINICAL RECORDS. [facility]. provides no warranty or guarantee of the accuracy or completeness of information in this document.
[2023-10-06 13:28] LABS: CREATININE FINGERSTICK < 1.0 mg/dL (0.70-1.30); EGFR FINGERSTICK > 60.0000 mL/min (>60)
== END | disposition home or self-care (01) ==
LOC: CT 12:52
PROVIDERS: PCP Family Medicine; Referring Provider Student in an Organized Health Care Education/Training Program; Visit Provider Student in an Organized Health Care Education/Training Program
DX: R91.1 Solitary pulmonary nodule (principal)
CPT/HCPCS: 71260; Q9967

== ENCOUNTER → 2023-11-04 | Outpatient (CLI) | payer MEDICARE, BC, SELFPAY ==
[2023-11-04 12:24] VITALS: PULSE 103; PULSE 104; PULSE 105; PULSE 92; PULSE 94; PULSE 98; O2SAT 94; O2SAT 95; O2SAT 97; O2SAT 98
--- NOTE | 2023-11-06 09:35 | PCM.PSN.6M ---
PSN 6 Minute Walk Test 6 Minute Walk Test 6 Minute Walk Test: 6 Minute Walk Test PSN:6-Minute Walk Test Start: 11/04/23 12:24 Freq: Status: Active Protocol: [id number] Document 11/04/23 12:24 YOSEPHYAQUELIN (Rec: 11/04/23 12:26 HILDA [id number]) 6 Minute Walk Test Date Performed 11/04/23 Time Performed 12:15 Height 5 ft 3 in Weight: 122 lb Weight in Pounds 122.[address]: Timothy Franco Assistive device used: None Pre-test Oxygen Delivery Method Room Air Pulse Ox 95 Pulse Rate (60-100) 94 Dyspnea Omar Scale (0-10) 0 Exertion Omar Scale (6-20) 6 1st minute Oxygen Delivery Method Room Air Pulse Ox 98 Pulse Rate (60-100) 98 2nd minute Oxygen Delivery Method Room Air Pulse Ox 98 Pulse Rate (60-100) 103 H 3rd minute Oxygen Delivery Method Room Air Pulse Ox 97 Pulse Rate (60-100) 104 H 4th minute Oxygen Delivery Method Room Air Pulse Ox 94 Pulse Rate (60-100) 105 H 5th minute Oxygen Delivery Method Room Air Pulse Ox 95 Pulse Rate (60-100) 104 H 6th minute Oxygen Delivery Method Room Air Pulse Ox 97 Pulse Rate (60-100) 105 H Dyspnea Omar Scale (0-10) 1 Exertion Omar Scale (6-20) 12 Post-test Oxygen Delivery Method Room Air Pulse Ox 97 Pulse Rate (60-100) 92 Full Laps Walked 10 Partial Lap, Number of Tiles Walked 15 Total Distance Walked (ft) 605 Interpretation Interpretation: The patient ambulated 605 feet over the course of 6 minutes beginning on room air without assistive devices. Pretesting oxygen saturation was noted to be 95% on room air. With ambulation, the marivel oxygen saturation was 94%. Although there was evidence of impaired walk distance, there was no significant exertional oxygen desaturation. Recommendations Recommendations: There is no indication for the use of supplemental oxygen at this time.
== END | disposition home or self-care (01) ==
PROVIDERS: PCP Family Medicine; Referring Provider Internal Medicine Critical Care Medicine; Visit Provider Internal Medicine Critical Care Medicine
DX: J44.9 Chronic obstructive pulmonary disease, unspecified (principal)
CPT/HCPCS: 94618; 94762

== ENCOUNTER 2023-12-01 06:16 | Emergency (ER) | payer MEDICARE, BC, SELFPAY ==
[2023-12-01] VITALS (14 sets, daily range): BP systolic 106–125; BP diastolic 49–60; PULSE 103–120; RESP 20–25; TEMP 36.6–37.6; O2SAT 90–94; BMI 22.6
--- NOTE | 2023-12-01 06:20 | EKG12_ITS ---
Test Reason : DYSRHYTHMIA Blood Pressure : / mmHG Vent. Rate : 113 BPM Atrial Rate : 113 BPM P-R Int : 156 ms QRS Dur : 140 ms QT Int : 368 ms P-R-T Axes : 069 -84 064 degrees QTc Int : 504 ms Sinus tachycardia Left axis deviation Right bundle branch block Abnormal ECG Confirmed by LOPEZ LOTT, MALORIE ([id number]), editor greeting card STEPHENIE CASEY ([id number]) on 12/02/2023 8:02:15 AM Referred By: Confirmed By:MALORIE MARROQUIN MD
--- NOTE | 2023-12-01 06:23 | EX.ED.DYSGE1 ---
HPI History of Present Illness Chief Complaint: Fall Detail of Chief Complaint: Fall at home and hypoxia Informant: patient, family and EMS Onset/Context/Timing Onset: Today Context: Sudden Onset Quality: Pulse ox 84%, and fall Location: Home Current Severity: Mild Maximum Severity: Moderate Worsened by: Activity Relieved by: Improved with oxygen Associated Symptoms Associated Symptoms: Skin tear right forearm Narrative Narrative: Patient is a 83-year-old on oxygen at night for the past month. He states it does not work as his ox levels are always low. He presents after fall. Pulse ox 84%. Son called paramedics. 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 He had a PET scan performed May 29, 2023 that revealed malignant viable neoplasm. There is increased radiopharmaceutical concentration in the right midlung, presumably right upper lobe that is new. There is also uptake noted in the right thorax perihilar region. There is newly identified increased radiopharmaceutical conservation in the 2 separate locations within the right axilla for filling quantitative criteria for malignant transformation. Also abnormality noted in the third through fifth lumbar vertebrae. There was interim resolution of the prior defined right lower lung field hypermetabolic focus. The PET scan was compared to September 26, 2021. Patient does have history of COPD. He does have a cough which is chronic. He states his cough is nonproductive. Presently he states he has no symptoms and feels good. His pulse ox is 86% on room air. He is not a very good informant. This may be partly due to the fact that he left his hearing aids at home and is having difficulty hearing me even with me speaking loudly. He denies fever, chills night sweats. He denies leg pain, swelling or discoloration. He states he normally is pale in appearance. There is no history of PE or DVT that he admits to. Prior similar symptoms: No Recent Illness/Hospitalization: No PFSH PFSH Medical History Carpal tunnel syndrome Cataract COPD (chronic obstructive pulmonary disease) Depression Diabetes Fibromyalgia GERD (gastroesophageal reflux disease) History of measles, mumps, or rubella Hyperlipemia Lung nodule Macular degeneration NSCLC of right lung Old myocardial infarction PAD (peripheral artery disease) Tobacco abuse Home Medications acetaminophen 325 mg tablet (Tylenol) 325 mg PO ONCE PRN 06/11/23 [History Last Taken Unknown] citalopram 20 mg tablet 20 mg PO DAILY 06/11/23 [History Last Taken Unknown] fluticasone fur. 100 mcg-umeclid 62.5 mcg-vilant 25 mcg inhalat.powder (Trelegy Ellipta) 1 inh inhalation DAILY 06/11/23 [History Last Taken Unknown] lorazepam 0.5 mg tablet (Ativan) 0.5 mg PO DAILY 06/11/23 [History Last Taken Unknown] metformin 500 mg tablet 500 mg PO BID 06/11/23 [History Last Taken Unknown] pantoprazole 40 mg tablet,delayed release (Protonix) 40 mg PO DAILY 06/11/23 [History Last Taken Unknown] rosuvastatin 20 mg tablet (Crestor) 20 mg PO DAILY 06/11/23 [History Last Taken Unknown] aspirin 81 mg tablet,delayed release (Adult Low Dose Aspirin) 81 mg PO DAILY 06/19/23 [History Last Taken Unknown] cilostazol 100 mg tablet 100 mg PO DAILY 12/01/23 [History Last Taken Unknown] doxycycline monohydrate 100 mg capsule 100 mg PO BID #10 CAPSULES 12/01/23 [Rx Last Taken Unknown] glimepiride 2 mg tablet 2 mg PO DAILY 12/01/23 [History Last Taken Unknown] prednisone 20 mg tablet 60 mg (3 x 20 mg) PO DAILY #15 TABLETS 12/01/23 [Rx Last Taken Unknown] Allergy/AdvReac Type Severity Reaction Status Date / Time No Known Allergies Allergy Unverified 10/23/23 10:33 Family History Father COPD (chronic obstructive pulmonary disease) Mother Cancer Surgical History History of carpal tunnel surgery History of cataract removal with insertion of prosthetic lens History of pneumonectomy Social History current occupational status: retired 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 [employer] Smoking Status: Current every day smoker tobacco type: cigarettes Tobacco: How many years used: 65 caffeine: Yes Type: coffee Number of servings: 6 ROS ROS ED Constitutional Constitutional ED: Reports weight loss; Denies chills, fever(s) or subjective Eyes Eyes: Denies blurry vision or change in vision ENT ENT ED: Denies ear pain, rhinorrhea or sore throat Cardiovascular Cardiovascular: Denies chest pain, orthopnea, palpitations, paroxysmal nocturnal dyspnea or racing heartbeat Respiratory/Chest Respiratory/Chest: Reports cough, dyspnea and dyspnea on exertion; Denies orthopnea, paroxysmal nocturnal dyspnea or sputum Gastrointestinal Gastrointestinal: Denies abdominal pain, diarrhea, melena, nausea or vomiting Genitourinary Genitourinary ED: Denies dysuria, hematuria or urinary frequency Musculoskeletal Musculoskeletal: Denies arthralgias, back pain or myalgias Integumentary Reports other Details: Skin tear right forearm Neurologic Neurologic: Reports weakness; Denies headache(s) or paresthesias Psychiatric Psychiatric: Denies anxiety Hematologic/Lymphatic Hematologic/Lymphatic: Reports systems reviewed and no addt'l complaints, except as documented EXAM Physical Exam Const Vital Signs: 12/01/23 06:18 12/01/23 06:28 12/01/23 06:45 Temperature 99.6 F H 98.1 F Temperature Source Oral Oral Pulse Rate 120 H 112 H Respiratory Rate 22 H 20 H Respiratory Effort Normal Respiratory Depth Normal Respiratory Pattern Normal Blood Pressure 106/49 L 108/51 L Blood Pressure Mean 68 70 Pulse Ox 90 92 93 Oxygen Delivery Method Nasal Cannula Nasal Cannula Nasal Cannula Oxygen Flow Rate (L/min) 3 3 3 12/01/23 06:53 Temperature Temperature Source Pulse Rate 113 H Respiratory Rate 20 H Respiratory Effort Respiratory Depth Respiratory Pattern Tachypnea Blood Pressure Blood Pressure Mean Pulse Ox Oxygen Delivery Method Oxygen Flow Rate (L/min) Positive well developed and cachectic General Appearance ED: well developed, cachectic, NAD and pallor; Negative for cyanotic or diaphoretic Nutritional Appearance: cachectic HEENT Reports dry mucous membranes HEENT Narrative: Head is atraumatic and normocephalic. Ears normal. Nares patent. Posterior pharynx unremarkable. Mouth ED: Yes dry mucous membranes Mouth: dry mucous membranes Eyes PERRL and EOMs intact bilaterally General Eye ED: Yes pale conjunctiva; Negative for scleral icterus Neck no lymphadenopathy, supple and no JVD Chest Wall inspection of chest normal and palpation of chest normal Resp normal respiratory effort and No clear to auscultation bilaterally Auscultation: rales bilateral base and wheezes expiratory wheezes and scattered wheezes Cardio regular rhythm, S1 normal heart sound, S2 normal heart sound and no murmurs Rate: tachycardic GI normal to inspection, nondistended, normoactive bowel sounds, non-tender and non-distended; Negative for hepatosplenomegaly or no masses GI Narrative: There is no palpable pulsatile mass. There is no abdominal bruit. Back/Spine no CVA tenderness Thoracic Spine / Upper Back: Negative for thoracic spinal tenderness Lumbar Spine / Lower Back: Negative for lumbar spinal tenderness Extremity Extremity Narrative: Skin tear right forearm Neuro oriented x3 and CN's II-XII intact bilaterally Sensorium / Orientation: alert Psych mental status grossly normal Skin No no wounds and No skin turgor normal General Skin Exam: pallor; Negative for elasticity normal or jaundice MDM MDM MDM Narrative Medical decision making narrative: This may represent exasperate COPD. Need to evaluate for pneumonia. Also need to consider pneumothorax which is less likely since breath sounds were noted bilaterally. Also in differential would be pulmonary embolus. Tetanus was updated. Will obtain EKG to assess for any acute ischemia and determine rhythm. CBC to assess H&H since he appears pale as well as white count. Electrolyte panel to assess renal function, CO2 and electrolytes. With history of lung cancer need to evaluate for hyponatremia. Glucose was evaluated as well since she has type 2 diabetes on oral agents. History & Record Review Additional record(s) reviewed:: Prior outpatient record (Prior records regarding diagnosis of lung cancer and outpatient testing.), Prior ED visit and Prior labs Lab Data Attestation: I reviewed the patient's lab results. Lab results narrative: CBC is remarkable for mild anemia. There are no comparisons. Labs: Laboratory Results - last 24 hr 12/01/23 06:36 WBC 10.9 RBC 3.70 L Hgb 10.9 L Hct 33.2 L MCV 89.7 MCH 29.5 MCHC 32.8 RDW Std Deviation 51.8 H RDW Coeff of Syed 15.8 H Plt Count 191 MPV 9.8 Immature Gran % (Auto) 0.500 Neut % (Auto) 89.7 H Lymph % (Auto) 4.5 L Richardson % (Auto) 5.1 Eos % (Auto) 0.0 Baso % (Auto) 0.2 Absolute Neuts (auto) 9.8 H Absolute Lymphs (auto) 0.49 L Nucleated RBC % 0 Sodium 137 Potassium 3.7 Chloride 104 Carbon Dioxide 27.0 Anion Gap 6 BUN 18 Creatinine 0.91 Estim Creat Clear Calc 50.37 Est GFR (MDRD) Af Amer 103 Est GFR (MDRD) Non-Af 85 BUN/Creatinine Ratio 19.8 Glucose 235 H Lactic Acid 2.0 Calcium 9.2 Radiography Chest X-Ray - ED: 1 View, Read by ED Physician (Suboptimal because patient is not truly upright and rotated. There is increased markings in the right lower lobe which is probably scarring from prior neoplasm. The hilum on the right does not appear normal. Based on PET scan that was performed last year there was active malignant disease noted.), Normal, Heart, Bony Structures and Chronic Changes Treatment and Re-Evaluation :: Patient was reexamined at 0740. Patient is moving significant mount of air. He is not hypoxic on oxygen. He does have oxygen at home. Daughter who is the POA confirmed he has stage IV non-small cell lung cancer. Discussed if he has a living will. He does have a living will. Discussed if anyone spoke to her or him regarding CPR intubation etc. She states he does not want to be put on life support and no CPR. Presently there is no document in the system. Will complete a DNR Comfort Care arrest and specify no intubation or invasive monitoring. Since patient is moving more air is not hypoxic and does have oxygen at home he was discharged to home with prescription for prednisone and short course of antibiotics since he has a productive cough. Discharge Plan Triage Chief Complaint: Fall ED Provider: Ted Ricks Dx/Rx/DC Orders Clinical Impression: Non-small cell carcinoma of lung, stage 4, Acute bronchospasm, Acute hypoxemic respiratory failure, Acute exacerbation of chronic obstructive pulmonary disease, DNR (do not resuscitate) Instructions: ED COPD Flare Prescriptions: New doxycycline monohydrate 100 mg capsule 100 mg PO BID Qty: 10 0RF prednisone 20 mg tablet 60 mg PO DAILY Qty: 15 0RF No Action Trelegy Ellipta 100-62.5-25 mcg blister with device 1 inh inhalation DAILY metformin 500 mg tablet 500 mg PO BID lorazepam [Ativan] 0.5 mg tablet 0.5 mg PO DAILY acetaminophen [Tylenol] 325 mg tablet 325 mg PO ONCE PRN citalopram 20 mg tablet 20 mg PO DAILY rosuvastatin [Crestor] 20 mg tablet 20 mg PO DAILY pantoprazole [Protonix] 40 mg tablet,delayed release (DR/EC) 40 mg PO DAILY aspirin [Adult Low Dose Aspirin] 81 mg tablet,delayed release (DR/EC) 81 mg PO DAILY cilostazol 100 mg tablet 100 mg PO DAILY glimepiride 2 mg tablet 2 mg PO DAILY Primary Care Provider: Matt Warner Referrals: Matt Warner MD [Primary Care Provider] - 3-5 Days Disposition Disposition: Home, Self Care
--- NOTE | 2023-12-01 06:26 | EKG12_ITS ---
Test Reason : FALL Blood Pressure : / mmHG Vent. Rate : 115 BPM Atrial Rate : 115 BPM P-R Int : 150 ms QRS Dur : 132 ms QT Int : 364 ms P-R-T Axes : 060 -85 063 degrees QTc Int : 503 ms Sinus tachycardia Left axis deviation Right bundle branch block Abnormal ECG Confirmed by LOPEZ LOTT, MALORIE ([id number]), writer editor STEPHENIE CASEY ([id number]) on 12/03/2023 1:50:05 PM Referred By: Confirmed By:MALORIE MARROQUIN MD
[2023-12-01] MEDS: Ipratropium/Albuterol Sulfate 3 ML AMPUL.NEB INHALATION (06:39)
[2023-12-01] MEDS: Albuterol 2.5 MG/3 ML VIAL.NEB. INHALATION ×3 (06:39→06:46)
--- NOTE | 2023-12-01 06:39 | NURSING ---
NO OLD EKGS
[2023-12-01] MEDS: Diphth,Pertuss(Acell),Tet Vac 0.5 ML Vial IM (06:40)
[2023-12-01 06:58] LABS: Absolute Lymphocyte Count 0.49 X10^3/uL (0.83-4.51); Absolute Neutrophil Count 9.8 X10^3/uL (2.0-7.7); Basophil# 0.02 X10^3/uL; Basophil% 0.2 % (0-1); Hematocrit 33.2 % (40-54); Hemoglobin 10.9 g/dL (13.0-16.5); Lymphocyte # 0.49 X10^3/ul (0.83-4.51); Lymphocyte % 4.5 % (19-41); Mean Corp Hgb Conc 32.8 g/dL (32-36); Mean Corpuscular Hgb 29.5 pg (27.0-32.0); Mean Corpuscular Volume 89.7 fL (80-94); Mean Platelet Vol. 9.8 fl (6.2-12.0); Monocyte# 0.56 X10^3/uL; Monocyte% 5.1 % (0-10); NRBC Flagged by Analyzer 0 % (0-5); Neutrophil # 9.77 X10^3/uL (2.7-7.7); Neutrophil % 89.7 % (47-70); POSITIVE DIFFERENTIAL YES; Platelet Count 191 K/mm3 (150-450); RBC Distribution Width CV 15.8 % (11.6-14.6); RBC Distribution Width SD 51.8 fl (35.1-43.9); White Blood Count 10.9 K/mm3 (4.4-11.0)
--- NOTE | 2023-12-01 07:00 | RAD_ITS ---
INDICATION: Cough, hypoxia scattered wheezes EXAMINATION/TECHNIQUE: X-RAY - XR Chest 2 Views COMPARISON: 10/06/2023 CT. FINDINGS: LINES/DEVICES: None. LUNGS: Hyperinflation of the lungs consistent with COPD. Left lower lobe consolidation. No evidence of a pneumothorax. Probable small left pleural effusion. MEDIASTINUM AND CARDIOVASCULAR STRUCTURES: Cardiac silhouette is normal in size and contour. Mediastinum is unremarkable. BONES AND SOFT TISSUES: No acute abnormality. RAD/Chest PA and Lateral IMPRESSION: 1. Left lower lobe consolidation consistent with lobar pneumonia and possible small left pleural effusion. 2. Emphysematous changes of the lungs. Electronically Signed: Yaw Bryant DO at 7:51 EDT ,
[2023-12-01 07:19] LABS: Anion Gap 6 (5-15); BUN 18 mg/dL (7-18); BUN/Creat Ratio 19.8 RATIO (10-20); Calcium,Total 9.2 mg/dL (8.5-10.1); Chloride 104 mmol/L (98-107); Creatinine, Serum 0.91 mg/dL (0.70-1.30); EST Glomerular Filtration Rate 85 mL/min (>60); Est Glom Filt Rate - Afr Amer 103 mL/min (>60); Estimated Creatinine Clearance 50.37 ml/min; Glucose 235 mg/dL (74-106); Potassium 3.7 mmol/L (3.5-5.1); Sodium Level 137 mmol/L (136-145)
--- NOTE | 2023-12-01 07:21 | ED.RN ---
LAB CALLED [facility] OF 2. DR KUMAR AWARE
--- NOTE | 2023-12-01 09:11 | NURSING ---
Daughter contaced home o2 company. They will bring portable o2 tank so pt can travel safely. DC instructions given. waiting for o2 tank.
[2023-12-01 10:46] LABS: Reflex Lactate? Y
== END 2023-12-01 10:18 | disposition home or self-care (01) ==
PROVIDERS: Emergency Provider Emergency Medicine; PCP Family Medicine; Visit Provider Emergency Medicine
DX: S51.801A Unspecified open wound of right forearm, initial encounter (principal); C34.90 Malignant neoplasm of unspecified part of unspecified bronchus or lung; J96.01 Acute respiratory failure with hypoxia; J44.1 Chronic obstructive pulmonary disease with (acute) exacerbation; I62.03 Nontraumatic chronic subdural hemorrhage; I62.01 Nontraumatic acute subdural hemorrhage; E11.51 Type 2 diabetes mellitus with diabetic peripheral angiopathy without gangrene; Z82.5 Family history of asthma and other chronic lower respiratory diseases; F17.210 Nicotine dependence, cigarettes, uncomplicated; J98.01 Acute bronchospasm; W19.XXXA Unspecified fall, initial encounter; I25.2 Old myocardial infarction; S41.111A Laceration without foreign body of right upper arm, initial encounter; R11.2 Nausea with vomiting, unspecified; E78.00 Pure hypercholesterolemia, unspecified; R91.1 Solitary pulmonary nodule; R55 Syncope and collapse; R41.82 Altered mental status, unspecified; K21.9 Gastro-esophageal reflux disease without esophagitis; Z79.84 Long term (current) use of oral hypoglycemic drugs
CPT/HCPCS: 70450; 71046; 71275; 72125; 80048; 80076; 81001; 83605; 83690; 84484; 85025; 85610; 85730; 87040; 90471; 90715; 93005; 94640; 96361; 96365; 99284; 99285; J7050; Q9967; A4216; J0295

== ENCOUNTER 2023-12-01 20:15 | Emergency (ER) | payer MEDICARE, BC, SELFPAY ==
[2023-12-01 20:16] VITALS: BP 186/87; PULSE 113; RESP 24; TEMP 36.8; O2SAT 86; BMI 19.8
[2023-12-01 20:23] VITALS: BP 170/79; PULSE 110; RESP 22; O2SAT 93
--- NOTE | 2023-12-01 20:50 | CT_ITS ---
STUDY: CTA CHEST REASON FOR EXAM: Male, 83 years old. pulmonary embolism RADIATION DOSAGE (If Supplied By Facility): CTDIvol = ( 13.48 ) mGy, DLP = ( 1154.92 ) mGycm TECHNIQUE: The examination was performed with the intravenous administration of IV 75mL Isovue-370. Post-processing of the angiographic images was performed, with multiplanar reformation and 3D reconstruction. Individualized dose optimization techniques were used for this CT. COMPARISON: None. FINDINGS: Normal enhancement of the main pulmonary artery and right and left pulmonary arteries. Normal enhancement of the bilateral peripheral pulmonary arteries. There is no demonstrated pulmonary embolism. Normal thoracic aorta and visualized great vessels. There is no demonstrated aortic dissection. Calcific coronary artery disease. Normal mediastinum. Normal hilar regions. Normal visualized trachea and bronchi. The lungs are well expanded. Centrilobular paraseptal emphysema. Bibasilar consolidations increased. 7 x 14 mm right perihilar nodule unchanged image #154. Normal chest wall structures. Normal osseous structures. Normal visualized upper abdomen. CT/CTA Chest W/WO Contrast IMPRESSION: New bibasilar consolidation. Stable right perihilar pulmonary nodule. No pulmonary embolism. Coronary artery disease. Electronically Signed: Tod Saucedo MD at 23:07 EDT ,
--- NOTE | 2023-12-01 20:50 | CT_ITS ---
We are attempting to reach an attending provider to discuss findings. An addendum with communication details will be sent when the communication is complete. STUDY: CT BRAIN WITHOUT CONTRAST REASON FOR EXAM: Male, 83 years old. altered mental status RADIATION DOSAGE (If Supplied By Facility): CTDIvol = ( 44.99 ) mGy, DLP = ( 779.24 ) mGycm TECHNIQUE: Transaxial CT imaging of the brain was performed without administration of intravenous contrast material. Individualized dose optimization techniques were used for this CT. COMPARISON: No relevant priors. FINDINGS: Normal soft tissue structures. Normal calvarium. There is moderate cerebral atrophy with widening of the extra-axial spaces and ventricular dilatation. Normal white matter tracts of the cerebral hemispheres. Normal basal ganglia and thalami. Normal brainstem. Normal cerebellum. Intracranial atherosclerosis. Multi Loculated mixed density left greater than right subdural hemorrhages measuring up to 21 mm on the left. Small intraparenchymal hemorrhages noted right nicole radiata. 5 mm left to right midline shift at the level of the septum pellucidum. Intracranial atherosclerosis. There are no findings of an acute ischemic infarction. Normal visualized paranasal sinuses. CT/Brain/Head without Contrast IMPRESSION: Left greater than right acute on chronic subdural hemorrhages. Slight midline shift as above. Electronically Signed: Tod Saucedo MD at 22:03 EDT ,
[2023-12-01] MEDS: 0.9% Normal Saline (1000mL) 1,000 ML 1000 ML IV (20:54)
[2023-12-01 21:01] LABS: Absolute Lymphocyte Count 0.49 X10^3/uL (0.83-4.51); Absolute Neutrophil Count 9.9 X10^3/uL (2.0-7.7); Basophil# 0.03 X10^3/uL; Basophil% 0.3 % (0-1); Hematocrit 34.6 % (40-54); Lymphocyte # 0.49 X10^3/ul (0.83-4.51); Lymphocyte % 4.6 % (19-41); Mean Corp Hgb Conc 31.8 g/dL (32-36); Mean Corpuscular Hgb 28.1 pg (27.0-32.0); Mean Corpuscular Volume 88.5 fL (80-94); Monocyte# 0.23 X10^3/uL; Monocyte% 2.2 % (0-10); NRBC Flagged by Analyzer 0 % (0-5); Neutrophil # 9.86 X10^3/uL (2.7-7.7); Neutrophil % 92.4 % (47-70); POSITIVE DIFFERENTIAL YES; Platelet Count 196 K/mm3 (150-450); RBC Distribution Width CV 15.9 % (11.6-14.6); RBC Distribution Width SD 51.4 fl (35.1-43.9); Red Blood Count 3.91 M/mm3 (4.6-6.2); White Blood Count 10.7 K/mm3 (4.4-11.0)
[2023-12-01 21:11] LABS: Differential Indicated SCAN CRITERIA MET
[2023-12-01 21:13] LABS: International Normalized Ratio 1.2; Partial Thromboplast Time 30.8 Seconds (24.1-36.2)
[2023-12-01 21:15] LABS: AST(SGOT) 55 U/L (15-37); Alanine Aminotransfer ALT/SGPT 37 U/L (16-61); Albumin, Serum 3.1 g/dL (3.2-5.0); Alkaline Phosphatase 85 U/L (45-117); Anion Gap 8 (5-15); BUN 18 mg/dL (7-18); BUN/Creat Ratio 18.9 RATIO (10-20); Bilirubin, Direct 0.24 mg/dL (0.00-0.30); Calcium,Total 9.4 mg/dL (8.5-10.1); Chloride 103 mmol/L (98-107); Creatinine, Serum 0.95 mg/dL (0.70-1.30); EST Glomerular Filtration Rate 81 mL/min (>60); Est Glom Filt Rate - Afr Amer 98 mL/min (>60); Estimated Creatinine Clearance 43.08 ml/min; Globulin 4.1 g/dL (2.2-4.2); Glucose 248 mg/dL (74-106); Lipase 22 U/L (13-75); Potassium 3.7 mmol/L (3.5-5.1); Protein, Total 7.2 g/dL (6.4-8.2); Sodium Level 137 mmol/L (136-145); Troponin-I HS 48 pg/mL (3.0-78.0)
[2023-12-01 21:21] LABS: Lactic Acid 2.2 mmol/L (0.4-1.9)
[2023-12-01 21:27] LABS: Platelet Estimate ADEQUATE (ADEQ)
[2023-12-01 21:28] LABS: Anisocytosis RARE; Red Cell Morphology N CHROM NORMAL (NORM C&C)
[2023-12-01 21:37] LABS: Bacteria 0 SEEN /hpf (None Seen); Mucous, Urine 0 SEEN /hpf (<or=2+); Red Blood Cells-Urine 0 SEEN /hpf (0-5); Squamous Epithelial Cells - UA 0 SEEN /hpf (0-5)
[2023-12-01 21:45] LABS: Color, Urine Yellow (Yellow); Glucose, Dipstick 250 mg/dl (Normal); Ketone-Dipstick 5 mg/dl (Negative); Leukocyte Esterase-Dipstick 25 /ul (Negative); Nitrite-Dipstick Negative (Negative); Occult Blood-Urine 50 /ul (Negative); Protein-Dipstick 100 mg/dl (Negative); Specific Gravity, Urine 1.015 (1.002-1.030); Urine Bilirubin Dipstick Negative (Negative); Urine Clarity Clear (Clear); Urine Urobilinogen 1 mg/dl (Normal)
[2023-12-01 21:56] LABS: White Blood Cells 0-5 SEEN /hpf (0-5)
[2023-12-01 22:00] VITALS: BP 169/80; PULSE 102; RESP 19; O2SAT 95
--- NOTE | 2023-12-01 22:04 | EX.ED.DYSGE1 ---
HPI History of Present Illness Chief Complaint: Syncope Informant: family and EMS Narrative Narrative: 83-year-old male presenting to the emergency room with altered mental status. Patient reportedly had a syncopal episode at home or felt. Son states he heard a noise and saw him on the ground. He seemed unresponsive. Apparently when he came to the patient was experiencing some nausea and vomiting. EMS notes tachycardia tachypnea and hypoxia. Patient was reportedly seen in the emergency department following a fall earlier in the day. He was noted to have skin tears and some hypoxia. He was given supplemental oxygen and actually was discharged home on oxygen. 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 I see that he also carries a diagnosis of type 2 diabetes GERD and hypercholesterolemia. In speaking with the family the patient underwent a lobectomy several years ago for the lung cancer. He had a PET scan which showed several small areas of potential reoccurrence. He has been following with pulmonology but has not yet been aggressive in the diagnosis of it. Once family arrived they inform me that he has been complaining of some neck discomfort today. They note that he has had a headache particularly since last night. They note that he has been falling mostly in the mornings when he goes to get out of bed. In speaking with the patient he was denying any neck pain or pain with movement. Family however states that he has been complaining of neck pain most of the day and limited range of motion because of it. [facility] Medical History Carpal tunnel syndrome Cataract COPD (chronic obstructive pulmonary disease) Depression Diabetes Fibromyalgia GERD (gastroesophageal reflux disease) History of measles, mumps, or rubella Hyperlipemia Lung nodule Macular degeneration NSCLC of right lung Old myocardial infarction PAD (peripheral artery disease) Tobacco abuse Home Medications acetaminophen 325 mg tablet (Tylenol) 325 mg PO ONCE PRN 06/11/23 [History Last Taken Unknown] citalopram 20 mg tablet 20 mg PO DAILY 06/11/23 [History Last Taken Unknown] fluticasone fur. 100 mcg-umeclid 62.5 mcg-vilant 25 mcg inhalat.powder (Trelegy Ellipta) 1 inh inhalation DAILY 06/11/23 [History Last Taken Unknown] lorazepam 0.5 mg tablet (Ativan) 0.5 mg PO DAILY 06/11/23 [History Last Taken Unknown] metformin 500 mg tablet 500 mg PO BID 06/11/23 [History Last Taken Unknown] pantoprazole 40 mg tablet,delayed release (Protonix) 40 mg PO DAILY 06/11/23 [History Last Taken Unknown] rosuvastatin 20 mg tablet (Crestor) 20 mg PO DAILY 06/11/23 [History Last Taken Unknown] aspirin 81 mg tablet,delayed release (Adult Low Dose Aspirin) 81 mg PO DAILY 06/19/23 [History Last Taken Unknown] cilostazol 100 mg tablet 100 mg PO DAILY 12/01/23 [History Last Taken Unknown] doxycycline monohydrate 100 mg capsule 100 mg PO BID #10 CAPSULES 12/01/23 [Rx Last Taken Unknown] glimepiride 2 mg tablet 2 mg PO DAILY 12/01/23 [History Last Taken Unknown] prednisone 20 mg tablet 60 mg (3 x 20 mg) PO DAILY #15 TABLETS 12/01/23 [Rx Last Taken Unknown] Allergy/AdvReac Type Severity Reaction Status Date / Time No Known Allergies Allergy Verified 12/01/23 20:16 Family History Father COPD (chronic obstructive pulmonary disease) Mother Cancer Surgical History History of carpal tunnel surgery History of cataract removal with insertion of prosthetic lens History of pneumonectomy Social History current occupational status: retired current occupation: RETIRED B[employer] Smoking Status: Current every day smoker tobacco type: cigarettes Tobacco: How many years used: 65 caffeine: Yes Type: coffee Number of servings: 6 ROS ROS ED Review of Systems ROS Unobtainable: due to mental status EXAM Physical Exam Narrative Exam Narrative: Elderly male laying on the bed no acute distress. Const Vital Signs: 12/01/23 20:16 12/01/23 20:23 12/01/23 20:25 Temperature 98.2 F Temperature Source Temporal Pulse Rate 113 H 110 H Respiratory Rate 24 H 22 H Respiratory Effort Normal Non-Labored Respiratory Pattern Normal Blood Pressure 186/87 H 170/79 H Blood Pressure Mean 120 109 Pulse Ox 86 93 Oxygen Delivery Method Nasal Cannula Nasal Cannula Oxygen Flow Rate (L/min) 2 4 12/01/23 22:00 Temperature Temperature Source Pulse Rate 102 H Respiratory Rate 19 H Respiratory Effort Respiratory Pattern Blood Pressure 169/80 H Blood Pressure Mean 109 Pulse Ox 95 Oxygen Delivery Method Nasal Cannula Oxygen Flow Rate (L/min) 4 Positive well nourished and well developed General Appearance ED: well developed HEENT Reports normocephalic, head/scalp atraumatic and moist mucous membranes Eyes PERRL and EOMs intact bilaterally Neck no lymphadenopathy, supple and no JVD Resp normal respiratory effort Auscultation: rhonchi lower bilaterally Cardio regular rate, regular rhythm and no murmurs Rate: tachycardic GI normal to inspection, nondistended, normoactive bowel sounds and non-tender Palpation: soft Back/Spine no CVA tenderness and normal ROM Extremity normal to inspection General Extremety ED: Negative for edema General Extremity: Negative for edema Neuro CN's II-XII intact bilaterally Neuro Narrative: Patient knows his name and the year but not where he is at. He is able to recall events of the past but cannot recall what happened to him today. Sensorium / Orientation: alert Motor Exam: strength 5/5 throughout Skin no rashes or lesions noted Skin Narrative: There are several skin tears involving the right forearm/elbow. There is also skin tear noted of the left upper arm. These are measuring approximately 3 cm to 5 cm in diameter. MDM MDM MDM Narrative Medical decision making narrative: After my initial history and physical with the patient waiting for family CT of the head was ordered which demonstrates bilateral acute on chronic subdurals with left to right shift of 5 mm. CTA of the chest was obtained which demonstrates bibasilar consolidations. In the setting of syncope with some vomiting and EMS is concerned with aspiration that certainly a possibility. He is requiring now 4 L of nasal cannula. I will obtain blood cultures and administer some Unasyn. CT of the cervical spine is currently pending. White count of 10.7 hemoglobin of 11. Lipase 22 troponin 48 normal coags urinalysis with no overt infection. I spoke with the daughter and the sons. The daughter is the POA. We are going to transfer him to [facility] where he has been accepted by Dr. Hong come to the emergency department. History & Record Review Discussion w/independent historian: EMS personnel, Patient and Family Additional record(s) reviewed:: Prior ED visit and Prior labs Lab Data Attestation: I reviewed the patient's lab results. Labs: Laboratory Results - last 24 hr 12/01/23 12/01/23 20:40 21:30 WBC 10.7 RBC 3.91 L Hgb 11.0 L Hct 34.6 L MCV 88.5 MCH 28.1 MCHC 31.8 L RDW Std Deviation 51.4 H RDW Coeff of Syed 15.9 H Plt Count 196 MPV 10.0 Immature Gran % (Auto) 0.500 Neut % (Auto) 92.4 H Lymph % (Auto) 4.6 L Mayes % (Auto) 2.2 Eos % (Auto) 0.0 Baso % (Auto) 0.3 Absolute Neuts (auto) 9.9 H Absolute Lymphs (auto) 0.49 L Nucleated RBC % 0 Differential Comment SEE COMMENT Platelet Estimate ADEQUATE RBC Morphology N CHROM Anisocytosis RARE PT 15.0 H INR 1.2 APTT 30.8 Sodium 137 Potassium 3.7 Chloride 103 Carbon Dioxide 26.0 Anion Gap 8 BUN 18 Creatinine 0.95 Estim Creat Clear Calc 43.08 Est GFR (MDRD) Af Amer 98 Est GFR (MDRD) Non-Af 81 BUN/Creatinine Ratio 18.9 Glucose 248 H Lactic Acid 2.2 H* Calcium 9.4 Total Bilirubin 0.70 Direct Bilirubin 0.24 AST 55 H ALT 37 Alkaline Phosphatase 85 Troponin I High Sens 48 Total Protein 7.2 Albumin 3.1 L Globulin 4.1 Lipase 22 Urine Color Yellow Urine Clarity Clear Urine pH 7.0 Ur Specific Thornton 1.015 Urine Protein 100 H Urine Glucose (UA) 250 H Urine Ketones 5 H Urine Occult Blood 50 H Urine Nitrite Negative Urine Bilirubin Negative Urine Urobilinogen 1 H Ur Leukocyte Esterase 25 H Urine RBC 0 SEEN Urine WBC 0-5 SEEN Ur Squamous Epith Cells 0 SEEN Urine Bacteria 0 SEEN Urine Mucus 0 SEEN Radiography Diagnostic Testing: Clinical Impression(s) from Imaging Studies Brain CT 12/01/23 20:50 IMPRESSION: Left greater than right acute on chronic subdural hemorrhages. Slight midline shift as above. Electronically Signed: oTd Saucedo MD at 22:03 EDT , ADDENDUM: 12/01/237 IMPRESSION: Left greater than right acute on chronic subdural hemorrhages. Slight midline shift as above. N.B. : The above Results were Read Back by Tod Saucedo MD to Anderson Calderon DO, and understanding confirmed on 12/01/2023 22:10:32 (ET). Electronically Signed: Tod Saucedo MD at 22:03 EDT Reading Location ID and State: [facility] / [place] Tel , Service support , Chest CTA 12/01/23 20:50 IMPRESSION: New bibasilar consolidation. Stable right perihilar pulmonary nodule. No pulmonary embolism. Coronary artery disease. Electronically Signed: Tod Saucedo MD at 23:07 EDT Reading Location ID and State: [facility] / [place] Tel , Service support , EKG Initial EKG: Attestation: I personally reviewed and interpreted this EKG as follows: Comments: Sinus tachycardia with a ventricular rate of 113 bpm. Right bundle branch block noted. Management Discussion w/another healthcare provider: Radiologist and Other ([facility] ED Attending) Critical Care Time Critical Care Time: Yes Critical care time (excluding procedures): 30-74 minutes (35 min), Including time spent:, Discussing w/Patient &/or Family/[facility], Discussing w/Consultants, Arranging Admission or Transfer and Performing Direct Patient Care at Bedside Discharge Plan Triage Chief Complaint: Syncope Other Complaint: Nausea/Vomiting ED Provider: Anderson Calderon Dx/Rx/DC Orders Clinical Impression: Acute on chronic intracranial subdural hematoma, COPD (chronic obstructive pulmonary disease), Non-small cell carcinoma of lung, stage 4, Acute hypoxemic respiratory failure, Vomiting, Pulmonary infiltrate present on computed tomography Prescriptions: No Action Trelegy Ellipta 100-62.5-25 mcg blister with device 1 inh inhalation DAILY metformin 500 mg tablet 500 mg PO BID lorazepam [Ativan] 0.5 mg tablet 0.5 mg PO DAILY acetaminophen [Tylenol] 325 mg tablet 325 mg PO ONCE PRN citalopram 20 mg tablet 20 mg PO DAILY rosuvastatin [Crestor] 20 mg tablet 20 mg PO DAILY pantoprazole [Protonix] 40 mg tablet,delayed release (DR/EC) 40 mg PO DAILY aspirin [Adult Low Dose Aspirin] 81 mg tablet,delayed release (DR/EC) 81 mg PO DAILY cilostazol 100 mg tablet 100 mg PO DAILY glimepiride 2 mg tablet 2 mg PO DAILY doxycycline monohydrate 100 mg capsule 100 mg PO BID Qty: 10 0RF prednisone 20 mg tablet 60 mg PO DAILY Qty: 15 0RF Primary Care Provider: Matt Warner Referrals: Matt Warner MD [Primary Care Provider] - Disposition Disposition: Acute Care Hospital Discharge Location: [facility]
--- NOTE | 2023-12-01 22:58 | CT_ITS ---
We are attempting to reach an attending provider to discuss findings. An addendum with communication details will be sent when the communication is complete. STUDY: CT CERVICAL SPINE WITHOUT CONTRAST REASON FOR EXAM: Male, 83 years old. trauma RADIATION DOSAGE (If Supplied By Facility): CTDIvol = ( 13.50 ) mGy, DLP = ( 282.33 ) mGycm TECHNIQUE: High resolution transaxial imaging was performed without contrast material. Sagittal and coronal images were reconstructed. Individualized dose optimization techniques were used for this CT. COMPARISON: None FINDINGS: Mild scoliosis. Normal craniovertebral junction. Normal anterior atlantoaxial articulation. Normal odontoid process. Normal cervical lordosis. Normal vertebral bodies and posterior osseous elements. Slight anterior subluxation C2-3. C2-3: Normal endplates. Normal disc height and morphology. Normal central canal and intervertebral neuroforamina. C3-4: Normal endplates. Decreased disc height and morphology. Normal central canal and intervertebral neuroforamina. C4-5: Normal endplates. Decreased disc height and morphology. Normal central canal and intervertebral neuroforamina. C5-6: Normal endplates. Decreased disc height and morphology. Normal central canal and intervertebral neuroforamina. C6-7: Normal endplates. Decreased disc height and morphology. Normal central canal and intervertebral neuroforamina. C7-T1: Normal endplates. Normal disc height and morphology. Normal central canal and intervertebral neuroforamina. Slight anterior subcutaneous subluxation T1 and T2. Normal visualized soft tissue structures. CT/Spine Cervical without Contras IMPRESSION: mild comp fractures T1 and T2, age indeterminate.o/w neg cspine. Electronically Signed: Tod Saucedo MD at 23:47 EDT ,
[2023-12-01 23:00] VITALS: BP 134/69; PULSE 106; RESP 17; O2SAT 92
[2023-12-01 23:15] LABS: Reflex Lactate? Y
[2023-12-01] MEDS: Ampicillin/Sulbactam 3 GM in 0.9% Normal Saline (100mL MB+) 100 ML IV (23:34)
[2023-12-02] VITALS: BP 163/83; PULSE 110; RESP 19; O2SAT 92
[2023-12-02 00:12] VITALS: BP 163/83; PULSE 110; RESP 19; TEMP 36.7; O2SAT 92
== END 2023-12-02 00:14 | disposition short-term general hospital (02) ==
PROVIDERS: Emergency Provider Emergency Medicine; PCP Family Medicine; Visit Provider Emergency Medicine
DX: I62.01 Nontraumatic acute subdural hemorrhage (principal); C34.90 Malignant neoplasm of unspecified part of unspecified bronchus or lung; E11.51 Type 2 diabetes mellitus with diabetic peripheral angiopathy without gangrene; J44.9 Chronic obstructive pulmonary disease, unspecified; J96.01 Acute respiratory failure with hypoxia; I62.03 Nontraumatic chronic subdural hemorrhage; F17.210 Nicotine dependence, cigarettes, uncomplicated; R11.2 Nausea with vomiting, unspecified; E78.00 Pure hypercholesterolemia, unspecified; R91.1 Solitary pulmonary nodule; R55 Syncope and collapse; R09.02 Hypoxemia; R41.82 Altered mental status, unspecified; K21.9 Gastro-esophageal reflux disease without esophagitis; Z79.84 Long term (current) use of oral hypoglycemic drugs; S41.111A Laceration without foreign body of right upper arm, initial encounter; X58.XXXA Exposure to other specified factors, initial encounter
CPT/HCPCS: 70450; 71275; 72125; 80048; 80076; 81001; 83605; 83690; 84484; 85025; 85610; 85730; 87040; 93005; 96361; 96365; 99285; J7050; Q9967; A4216; J0295